=== PATIENT | female | born 1985 | race Caucasian/White ===

== ENCOUNTER 2023-05-25 11:23 | Outpatient (OUT) | payer OTHER, SELFPAY ==
--- NOTE | 2023-05-25 11:32 | US_ITS ---
[address] [address] Patient Name: OTONIEL RIVAS MRN: [id number] date: 1985 Sex: F Assigned Patient Location: US Current Patient Location: US Accession/Order Number: [id number] Exam Date: 05/25/2023 11:50 Report Date: 05/25/2023 13:02 At the request of: NEIL ESPINOZA Procedure: US pelvis w/ transvaginal EXAMINATION: US pelvis w/ transvaginal HISTORY: Menorrhagia With Regular Cycle N92.0 COMPARISON: Ultrasound pelvis 11/25/2016 TECHNIQUE: Transabdominal and/or transvaginal sonographic examination was performed as indicated by examination type. FINDINGS: UTERUS: Slightly heterogeneous within posterior wall; nonspecific. Uterus size: 8.8 x 3.8 x 5.0 cm ENDOMETRIUM: Normal thickness and echogenicity. Trace amount of fluid within endometrial cavity. Endometrial thickness: 11 mm RIGHT OVARY: Contains a 2.1 cm heterogeneous slightly hypoechoic area; mass versus cyst. Duplex Doppler demonstrates normal waveform and flow; resistive index 0.5. Ovary size: 3.8 x 2.3 x 3.2 cm LEFT OVARY: Normal size and appearance. Duplex Doppler demonstrates normal waveform and flow; resistive index 0.5. Ovary size: 2.5 x 1.4 x 1.9 cm CUL-DE-SAC: Unremarkable. No significant free fluid. BLADDER: Unremarkable. OTHER: None. US/US pelvis w/ transvaginal IMPRESSION: 1. Right ovary contains a 2.1 cm complex cyst versus hypoechoic mass. This most likely represents a hemorrhagic cyst. Follow-up ultrasound evaluation 6 weeks is recommended to document regression. 2. Otherwise no suspicious abnormality of the uterus or endometrium to account for patient's symptoms. Electronically authenticated by: TREVON MCKEON Date: 05/25/2023 13:02
[2023-05-25 12:49] LABS: Basophils Absolute Auto 0.2 10^3/uL (0.0-0.1); Basophils Percent Auto 1.6 % (0.2-2.0); Eosinophils Absolute Auto 0.2 10^3/uL (0.0-0.7); Eosinophils Percent Auto 1.8 % (0.9-7.0); Hematocrit 40.8 % (36.0-48.0); Hemoglobin 13.4 g/dL (12.0-16.0); Immature Granulocytes Abs Auto 0.04 10^3/uL (0.00-0.03); Immature Granulocytes Pct Auto 0.4 % (0.0-0.5); Lymphocytes Absolute Auto 2.4 10^3/uL (1.2-3.8); Lymphocytes Percent Auto 24.8 % (20.5-60.0); Mean Corpuscular HGB Conc 32.8 g/dL (29.9-35.2); Mean Corpuscular Hemoglobin 28.8 pg (26.7-34.0); Mean Corpuscular Volume 87.6 fL (81.0-99.0); Mean Platelet Volume 10.5 fL (9.5-13.5); Monocytes Absolute Auto 0.6 10^3/uL (0.3-0.8); Monocytes Percent Auto 6.5 % (1.7-12.0); Neutrophils Absolute Auto 6.2 10^3/uL (1.4-6.5); Neutrophils Percent Auto 64.9 % (43.0-75.0); Platelet Count 320 10^3/uL (150-450); Red Blood Count 4.66 10^6/uL (4.20-5.40); Red Cell Distribution Width 11.9 % (11.0-15.0); White Blood Count 9.5 10^3/uL (4.0-11.0)
[2023-05-25 12:57] LABS: INR 0.96; Partial Thromboplastin Time 26.5 sec (22.3-36.2); Prothrombin Time 10.2 sec (9.0-11.6)
[2023-05-25 13:56] LABS: Free T4 0.85 ng/dL (0.76-1.46)
[2023-05-25 13:59] LABS: HCG Quantitative <1 mIU/mL; Thyroid Stimulating Hormone 0.845 uIU/mL (0.358-3.740)
[2023-05-25 14:01] LABS: Estimated Average Glucose 105 mg/dL; Glycohemoglobin A1C 5.3 % (4.5-6.2)
== END 2023-05-25 11:24 | disposition home or self-care (01) ==
LOC: US 11:28
PROVIDERS: PCP Family Medicine; Visit Provider Obstetrics & Gynecology
DX: N92.0 Excessive and frequent menstruation with regular cycle (principal); N83.201 Unspecified ovarian cyst, right side
CPT/HCPCS: 36415; 76830; 76856; 83036; 84439; 84443; 84702; 85025; 85610; 85730

== ENCOUNTER 2023-06-12 09:13 | Outpatient (OUT) | payer OTHER, SELFPAY ==
[2023-06-12 10:35] LABS: Lactate Dehydrogenase 160 U/L (81-234)
[2023-06-13 04:07] LABS: AFP, Serum, Tumor Marker <1.8 ng/mL (0.0-6.4); CEA 1.6 ng/mL (0.0-4.7); HCG Tumor Marker <1 mIU/mL (.)
== END 2023-06-12 09:14 | disposition home or self-care (01) ==
LOC: LAB 09:14
PROVIDERS: PCP Family Medicine; Visit Provider Obstetrics & Gynecology
DX: N83.299 Other ovarian cyst, unspecified side (principal)
CPT/HCPCS: 36415; 82105; 82378; 83615; 84702; 86304

== ENCOUNTER 2023-07-24 20:44 | Outpatient (REF) | payer OTHER, SELFPAY ==
--- OUTSIDE RECORDS SUMMARY | 2023-07-24 20:54 | XMS_ITS | CCD ---
Author Organization [facility] Care Team Providers Care Director Of Student Financial Services Name Role Phone UNKNOWN, PROVIDER Unavailable Unavailable UNKNOWN, PROVIDER Unavailable Unavailable SELF, REFERRED Unavailable Unavailable PERLA, KILO Unavailable Unavailable Perla NELSON, Kilo Rankin Primary Care Provider MILO POTTER Attending Unavailable PERLA, KILO RANKIN Primary Care UnavailBEREKET Altamirano Consulting Unavailable NADERER, DR KILO Diane Primary Care Unavailable ALEXIS ., DR TREJO Admitting Unavailable ALEXIS ., DR TREJO Attending Unavailable EHSAN ARREDONDO Consulting Unavailable ALEXIS ., DR TREJO Admitting Unavailable NADERER, DR KILO Diane Primary Care Unavailable ALEXIS ., DR TREJO Consulting Unavailable ALEXIS ., DR TREJO Attending Unavailable ANASTASIA ANAYA Consulting Unavailable ABBY II, PATTI Consulting Unavailable ALEXIS ., DR TREJO Attending Unavailable NADERER, DR KILO Diane Primary Care Unavailable ALEXIS ., DR TREJO Admitting Unavailable ALEXIS ., DR TREJO Consulting Unavailable MOJOSSY, BRYON E Attending Unavailable Unavailable Primary Care Provider UnavailKilo Kim MD Primary Care Provider NEIL BALL Attending Unavailable Allergies Allergy Classification Reported Allergen(s) Allergy Type Date of Onset Reaction(s) Facility Corticosteroids (1 source) Desonide Drug Allergy 4 [facility] (1 source) Desonide Drug Allergy 4 [facility] (1 source) ALLERGIES NOT ON FILE; Translations: [ALLERGIES NOT ON FILE] Propensity to adverse reactions (disorder) [facility] 3 Repository Medications Current Medications Medication Drug Class(es) Dates Sig (Normalized) Sig (Original) valACYclovir 500 mg oral tablet (1 source) Herpesvirus Nucleoside Analog DNA Polymerase Inhibitor, Herpes Simplex Virus Nucleoside Analog DNA Polymerase Inhibitor, Herpes Zoster Virus Nucleoside Analog DNA Polymerase Inhibitor valACYclovir (Valtrex) 500 MG tablet valacyclovir 500 mg tablet 0 Active varenicline 0.5 mg oral tablet (1 source) Partial Cholinergic Nicotinic Agonist varenicline (Chantix ) 0.5 MG tablet Chantix 0 Active Problems Active Problems Problem Classification Problem Date Documented Da te Episodic/Chronic Abdominal pain (1 source) Pelvic and perineal pain; Translations: [PELVIC AND PERINEAL PAIN] Onset: 08-08-2022 Episodic Contraceptive and procreative management (1 source) Encounter for sterilization; Translations: [ENCOUNTER FOR STERILIZATION] Onset: 08-08-2022 Episodic E Codes: Fall (1 source) Accidental fall ; Translations: [Unspecified fall, initial encounter] Episodic Inflammatory diseases of female pelvic organs (1 source) Chronic salpingitis; Translations: [CHRONIC SALPINGITIS] Onset: 08-08-2022 Chronic Menstrual disorders (5 sources) Excessive and frequent menstruation with regular cycle; Translations: [EXCESS FREQ MENSTRUATION W/REG CYCL] Onset: 07-22-2022 Chronic Other female genital disorders (1 source) Abnormal uterine and vaginal bleeding, unspecified; Translations: [ABNORMAL UTERINE VAGINAL BLEED UNS] Onset: 08-08-2022 Chronic Residual codes; unclassified (1 source) Acquired absence of other specified parts of digestive tract; Translations: [ACQ ABSENCE OTH PART DIGESTV TRACT] Onset: 08-08-2022 Episodic Spondylosis; intervertebral disc disorders; other back problems (4 sources) Other cervical disc displacement, unspecified cervical region; Translations: [OTHER CERVICAL DISC DISPLACEMENT, UNSP CERVICAL REGION] Onset: 03-02-2016 Chronic Sprains and strains (2 sources) Sprain of left ankle; Translations: [Sprain of unspecified ligament of left ankle, initial encounter] Episodic Substance-related disorders (2 sources) Nicotine dependence, cigarettes, uncomplicated; Translations: [Nicotine dependence, other tobacco product, uncomplicated] Onset: 07-22-2022 Chronic Unclassified (2 sources) Unknown / UNK(Unknown) Onset: 03-02-2016 Past or Other Problems Problem Classification Problem Date Documented Date Episodic/Chronic Immunizations and screening for infectious disease (1 source) Encounter for screening for human papillomavirus (HPV); Translations: [ENC SCREENING HUMAN PAPILLOMAVIRUS] Onset: 05-08-2022 Episodic Other aftercare (1 source) Encounter for follow-up examination after completed treatment for conditions other than malignant neoplasm; Translations: [ENCNTR FOR F/U EXAM AFT TRTMT FOR COND OTH THAN MALIG NEOPLM] Onset: 03-02-2016 Episodic Other connective tissue disease (1 source) Arthrodesis status; Translations: [ARTHRODESIS STATUS] Onset: 03-02-2016 Episodic Other screening for suspected conditions (not mental disorders or infectious disease) (4 sources) Encounter for screening for malignant neoplasm of cervix; Translations: [ENC SCREENING MALIG NEOPLASM CERV] Onset: 05-04-2022 Episodic Results Test Name Value Interpretation Reference Range Facility CBC AUTO DIFFon 07-28-2022 BASO # 0.2 103/ul Critically high 0.0-0.1 [facility] Comment on above: Performed By: #### C BC #### [facility] [address] [place] [address] Dr. Ngozi Christie Basophils/100 WBC (Bld) 1.8 % Normal 0.2-2.0 [facility] Comment on above: Performed By: #### C BC #### [facility] [address] [address] [address] Ngozi Christie EO # 0.2 103/ul Normal 0.0-0.7 [facility] Comment on above: Performed By: #### C BC #### [facility] [address] [place] [address] Dr. Ngozi Christie Eosinophils/100 WBC (Bld) 2.3 % Normal 0.9-7.0 [facility] Comment on above: Performed By: #### C BC #### [facility] [address] [place] [address] Dr. Ngozi Christie Erythrocyte distribution width (RBC) [Ratio] 11.7 % Normal 11.0-15.0 [facility] Comment on above: Performed By: #### C BC #### [facility] [address] [address] [address] Ngozi Christie Hematocrit (Bld) [Volume fraction] 42.2 % Normal 36.0-48.0 [facility] Comment on above: Performed By: #### C BC #### [facility] [address] [place] [address] Dr. Ngozi Christie Hemoglobin (Bld) [Mass/Vol] 14.0 g/dL Normal 12.0-16.0 [facility] Comment on above: Performed By: #### C BC #### [facility] [address] [place] [address] Dr. Ngozi Christie IG # 0.03 10e3/ul Normal 0.00-0.03 [facility] Comment on above: Performed By: #### C BC #### [facility] [address] [place] [address] Dr. Ngozi Christie IG % 0.4 % Normal 0.0-0.5 [facility] Comment on above: Performed By: #### C BC #### [facility] [address] [place] [address] Dr. Ngozi Christie LYMPH # 2.3 103/ul Normal 1.2-3.8 [facility] Comment on above: Performed By: #### C BC #### [facility] [address] [place] [address] Dr. Ngozi Christie Lymphocytes/100 WBC (Bld) 27.6 % Normal 20.5-60.0 [facility] Comment on above: Performed By: #### C BC #### [facility] [address] [place] [address] Dr. Ngozi Christie MANUAL DIFF REQ NO Normal [facility] Comment on above: Performed By: #### C BC #### [facility] [address] [place] [address] Dr. Ngozi Christie MCH (RBC) [Entitic mass] 28.9 pg Normal 26.7-34.0 [facility] Comment on above: Performed By: #### C BC #### [facility] [address] [place] [address] Dr. Ngozi Christie MCHC (RBC) [Mass/Vol] 33.2 g/dL Normal 29.9-35.2 [facility] Comment on above: Performed By: #### C BC #### [facility] [address] [place] [address] Dr. Ngozi Christie MCV (RBC) [Entitic vol] 87.0 fL Normal 81.0-99.0 [facility] Comment on above: Performed By: #### C BC #### [facility] [address] [place] [address] Dr. Ngozi Christie MONO # 0.5 103/ul Normal 0.3-0.8 [facility] Comment on above: Performed By: #### C BC #### [facility] [address] [place] [address] Dr. Ngozi Christie Monocytes/100 WBC (Bld) 5.7 % Normal 1.7-12.0 [facility] Comment on above: Performed By: #### C BC #### [facility] [address] [place] [address] Dr. Ngozi Christie NEUT # 5.2 103/ul Normal 1.4-6.5 [facility] Comment on above: Performed By: #### C BC #### [facility] [address] [place] [address] Dr. Ngozi Christie Neutrophils/100 WBC (Bld) 62.2 % Normal 43.0-75.0 [facility] Comment on above: Performed By: #### C BC #### [facility] [address] [place] [address] Dr. Ngozi Christie Platelet mean volume (Bld) [Entitic vol] 10.0 fL Normal 9.5-13.5 [facility] Comment on above: Performed By: #### C BC #### [facility] [address] [place] [address] Dr. Ngozi Christie PLT 332 103/ul Normal 150-450 [facility] Comment on above: Performed By: #### C BC #### [facility] [address] [place] [address] Dr. Ngozi Christie RBC 4.85 106/ul Normal 4.20-5.40 [facility] Comment on above: Performed By: #### C BC #### [facility] [address] [place] [address] Dr. Ngozi Christie WBC 8.4 103/ul Normal 4.0-11.0 [facility] Comment on above: Performed By: #### C BC #### [facility] [address] [place] [address] Dr. Ngozi Christie PREG QUANT HCGon 07-28-2022 HCG QUANT <1 Normal [facility] Comment on above: Performed By: #### P REGQNT #### [facility] [address] [place] [address] Dr. Ngozi Christie HCG RANGE SEE BELOW [facility] Comment on above: Result Comment: 5-50 0.2-1 WEEK 50-500 1-2 WEEKS 100-5,000 2-3 WEEKS 500-10,000 3-4 WEEKS 1,000-50,000 4-5 WEEKS 10,000-100,000 5-6 WEEKS 15,000-200,000 6-8 WEEKS 10,000-100,000 2-3 MONTHS Performed By: #### P REGQNT #### [facility] [address] [place] [address] Dr. Ngozi Christie PAP ACOG PANEL 2: 30 to 65on 05-11-2022 . . Normal [facility] Comment on above: Result Comment: Perf ormed at: WB Performed By: #### [id number] #### [facility] [address] [place] [address] Dr. Ngozi Christie Age Gdln ACOG Testing 30-65 [facility] Comment on above: Performed By: #### [id number] #### [facility] [address] [place] [address] Dr. Ngozi Christie DIAGNOSIS: Comment Normal [facility] Comment on above: Result Comment: NEGA TIVE FOR INTRAEPITHELIAL LESION OR MALIGNANCY. Performed at: WB Performed By: #### [id number] #### [facility] [address] [place] [address] Dr. Ngozi Christie HPV Aptima Negative Normal Negative [facility] Comment on above: Result Comment: This nucleic acid amplification test detects fourteen high-risk HPV types (16,18,31,33,35,39,45,51,52,56,58,59,66,68) without differentiation. Performed at: =G Performed By: #### [id number] #### [facility] [address] [place] [address] Dr. Ngozi Christie HPV Genotype Reflex Comment Normal [facility] Comment on above: Result Comment: Crit erclaire not met, HPV Genotype not performed. Performed at: WB Performed By: #### [id number] #### [facility] [address] [place] [address] Dr. Ngozi Christie Methodology: Comment Normal [facility] Comment on above: Result Comment: This liquid based ThinPrep(R) pap test was screened with the use of an image guided system. Performed at: WB Performed By: #### [id number] #### [facility] [address] [place] [address] Dr. Ngozi Christie Note: Comment Normal [facility] Comment on above: Result Comment: The Pap smear is a screening test designed to aid in the detection of premalignant and malignant conditions of the uterine cervix. It is not a diagnostic procedure and should not be used as the sole means of detecting cervical cancer. Both false-positive and false-negative reports do occur. . Performed at: WB Performed By: #### [id number] #### [facility] [address] [place] [address] Dr. Ngozi Christie Performed by: Comment Normal [facility] Comment on above: Result Comment: Manuel Najera [employer]quis[employer] Analyst (ASCP) Performed at: WB Performed By: #### [id number] #### [facility] [address] [place] [address] Dr. Ngozi Christie Specimen adequacy: Comment Normal [facility] Comment on above: Result Comment: Sati sfactory for evaluation. Endocervical and/or squamous metaplastic cells (endocervical component) are present. Performed at: WB Performed By: #### [id number] #### [facility] [address] [place] [address] Dr. Ngozi Christie No Panel InformationOrdered By: Milo Potter on 07-22-2020 1. Soft tissue swelling at the lateral aspect of the left ankle. No fracture or disruption of the ankle mortise. 2. Small posterior calcaneal spur. 3. No fracture or joint abnormality is identified in the left foot. [employer] Phone: LEFT ANKLE 3 VIEWS AND LEFT FOOT 3 VIEWS 07/22/2020 COMPARISON: None. HISTORY: Reason for exam:->fall into hole, marked pain greatest over lateral malleolar area; twisting injury left ankle. TECHNIQUE: Frontal, oblique, and lateral views of the left ankle as well as frontal, oblique, and lateral views of left foot were obtained. FINDINGS: There is soft tissue swelling at the lateral aspect of the left ankle. No fracture, osteochondral defect, or dislocation is identified. Ankle mortise is intact. There is a small enthesophyte at the posterior aspect of the calcaneus. Joint spaces in the left foot are preserved. No other significant degenerative spurring is identified. [employer] Phone: Fausto, pn Incoming Radiant Results From [employer] - 07/22/2020 3:39 PM EDT LEFT ANKLE 3 VIEWS AND LEFT FOOT 3 VIEWS 07/22/2020 COMPARISON: None. HISTORY: Reason for exam:->fall into hole, marked pain greatest over lateral malleolar area; twisting injury left ankle. TECHNIQUE: Frontal, oblique, and lateral views of the left ankle as well as frontal, oblique, and lateral views of left foot were obtained. FINDINGS: There is soft tissue swelling at the lateral aspect of the left ankle. No fracture, osteochondral defect, or dislocation is identified. Ankle mortise is intact. There is a small enthesophyte at the posterior aspect of the calcaneus. Joint spaces in the left foot are preserved. No other significant degenerative spurring is identified. IMPRESSION: 1. Soft tissue swelling at the lateral aspect of the left ankle. No fracture or disruption of the ankle mortise. 2. Small posterior calcaneal spur. 3. No fracture or joint abnormality is identified in the left foot. [employer] Phone: XR ANKLE LEFT (MIN 3 VIEWS)o n 07-22-2020 XR ANKLE LEFT (MIN 3 VIEWS) LEFT ANKLE 3 VIEWS AND LEFT FOOT 3 VIEWS 07/22/2020 COMPARISON: None. HISTORY: Reason for exam:->fall into hole, marked pain greatest over lateral malleolar area; twisting injury left ankle. TECHNIQUE: Frontal, oblique, and lateral views of the left ankle as well as frontal, oblique, and lateral views of left foot were obtained. FINDINGS: There is soft tissue swelling at the lateral aspect of the left ankle. No fracture, osteochondral defect, or dislocation is identified. Ankle mortise is intact. There is a small enthesophyte at the posterior aspect of the calcaneus. Joint spaces in the left foot are preserved. No other significant degenerative spurring is identified. IMPRESSION: 1. Soft tissue swelling at the lateral aspect of the left ankle. No fracture or disruption of the ankle mortise. 2. Small posterior calcaneal spur. 3. No fracture or joint abnormality is identified in the left foot. Interpreted by: Feliciano Jones MD Signed by: Feliciano Jones MD 07/22/20 Final result Normal [facility] XR FOOT LEFT (MIN 3 VIEWS)on 07-22-2020 XR FOOT LEFT (MIN 3 VIEWS) LEFT ANKLE 3 VIEWS AND LEFT FOOT 3 VIEWS 07/22/2020 COMPARISON: None. HISTORY: Reason for exam:->fall into hole, marked pain greatest over lateral malleolar area; twisting injury left ankle. TECHNIQUE: Frontal, oblique, and lateral views of the left ankle as well as frontal, oblique, and lateral views of left foot were obtained. FINDINGS: There is soft tissue swelling at the lateral aspect of the left ankle. No fracture, osteochondral defect, or dislocation is identified. Ankle mortise is intact. There is a small enthesophyte at the posterior aspect of the calcaneus. Joint spaces in the left foot are preserved. No other significant degenerative spurring is identified. IMPRESSION: 1. Soft tissue swelling at the lateral aspect of the left ankle. No fracture or disruption of the ankle mortise. 2. Small posterior calcaneal spur. 3. No fracture or joint abnormality is identified in the left foot. Interpreted by: Feliciano Jones MD Signed by: Feliciano Jones MD 07/22/20 Final result Normal [facility] Vital Signs Date Time Vital Sign Value Performing Clinician Bentoni veray 07-22-2020 14:59-0400 Body height 177.8 cm Milo Potter MD Work Phone: [employer] Work Phone: 07-22-2020 14:59-0400 Body mass index (BMI) [Ratio] 25.83 kg/m2 Milo Potter MD Work Phone: [employer] Work Phone: 07-22-2020 14:59-0400 Body temperature 99.1 [degF] Milo Potter MD Work Phone: [employer] Work Phone: 07-22-2020 14:59-0400 Body weight 81.65 kg Milo Potter MD Work Phone: [employer] Work Phone: 07-22-2020 14:59-0400 Diastolic blood pressure 55 mm[Hg] Milo Potter MD Work Phone: [employer] Work Phone: 07-22-2020 14:59-0400 Heart rate 113 /min Milo Potter MD Work Phone: [employer] Work Phone: 07-22-2020 14:59-0400 Respiratory rate 18 /min Milo Potter MD Work Phone: [employer] Work Phone: 07-22-2020 14:59-0400 SaO2% (BldA) [Mass fraction] 100 % Milo Potter MD Work Phone: [employer] Work Phone: 07-22-2020 14:59-0400 Systolic blood pressure 146 mm[Hg] Milo Potter MD Work Phone: [employer] Work Phone: Encounters Encounter Date Encounter Type Care Provider Facility Start: 05-09-2023 End: 05-09-2023 ambulatory NIEL BALL Not Available Start: 04-18-2023 Chart abstracting Neil Ball DO Work Phone: [facility] Start: 01-01-2023 End: 01-01-2023 ambulatory BRYON DRISCOLL [facility] Ambulatory Start: 01-01-2023 End: 01-01-2023 Postop follow up visit related to original px Bryon Driscoll MD Work Phone: [facility] Comment on above: Sprain of left ankle , unspecified ligament, initial encounter (Primary Dx) Start: 07-28-2022 End: 07-28-[address] NEIL BALL . Facility:[facility] Start: 07-22-2022 Encounter for preprocedural cardiovascular examination DR NEIL BALL . [facility] Start: 07-19-2022 End: 07-20-2022 ambulatory BEREKET REESER Facility:[facility] Start: 07-19-2022 End: 07-20-2022 Encounter for preprocedural cardiovascular examination BEREKET NAVARRETE Facility:[facility] Start: 05-04-2022 End: 05-04-[address] NEIL BALL . Facility:[facility] Start: 07-22-2020 End: 07-22-2020 Emergency department patient visit MLIO POTTER [facility] Start: 07-22-2020 End: 07-22-2020 Emergency department patient visit Milo Potter MD Work Phone: [facility] ED Comment on above: Sprain of left ankle , unspecified ligament, initial encounter (Primary Dx); Accidental fall, initial encounter Start: 03-02-2016 End: 03-03-2016 Ambulatory PROVIDER UNKNOWN Facility:[facility] Procedures Date Procedure Procedure Detail Performing Clinician Start: 05-04-2022 Microscopic observat ion [Identifier] in Cervix by Cyto stain Neil Ball DO Work Phone: Start: 07-22-2020 End: 07-22-2020 Radex ankle complete minimum 3 views Milo Potter MD Work Phone: Plan of Treatment Date Care Activity Detail Author Start: 01-31-2036 Zoster Vaccines (1 of 2) Zoste r Vaccines (1 of 2) [facility] Start: 05-04-2027 Screening for malign ant neoplasm of cervix [facility] Start: 05-09-2023 End: 05-09-2023 Patient encounter procedure 05/09/2023 1:50 PM EST Office Visit [facility] [address] [place] [address] Neil Ball, DO [address] [place] [address] [facility] Start: 11-10-2022 Influenza vaccination Influenza Vacc ine (#1) [facility] Start: 11-10-2020 Influenza vaccination Flu vacc ine (Season Ended) [employer] Phone: Start: 01-31-2008 DTaP/Tdap/Td Vaccine s (1 - Tdap) DTaP/Tdap/Td Vaccines (1 - Tdap) [facility] Start: 2007 Screening for malign ant neoplasm of cervix [facility] Start: 2005 DTaP/Tdap/Td vaccine (1 - Tdap) DTaP/Tdap/Td vaccine (1 - Tdap) [employer] Phone: Start: 01-31-2004 Diabetes mellitus screening Diabetes Screening [facility] Start: 01-31-2004 Hepatitis C screening Hepatitis C Sc reening [facility] Start: 2001 HIV screening HIV screen [facility] Work Phone: Start: 1998 COVID-19 Vaccine (1) COVID-19 Vaccin e (1) [employer] Phone: Start: 1987 MMR Vaccines (1 of 1 - Standard series) MMR Vaccines (1 of 1 - Standard series) [facility] Start: 1987 Varicella vaccination Varicell a Vaccines (1 of 2 - 2-dose childhood series) [facility] Start: 1987 Varicella vaccine (1 of 2 - 2-dose childhood series) Varicella vaccine (1 of 2 - 2-dose childhood series) [employer] Phone: Start: 1986 COVID-19 Vaccine (#1) COVID-19 Vacci ne (#1) [facility] Start: 1986 Hepatitis B Vaccines (1 of 3 - 3-dose series) Hepatitis B Vaccines (1 of 3 - 3-dose series) [facility] Start: 1986 Hepatitis C screening Hepatitis C sc raza [facility] Work Phone: Start: 1986 HIV screening HIV Screening [facility] Start: 1986 Lipid panel Lipid Panel [facility] Start: 1986 Yearly Adult Physical Yearly Adult P hysical [facility] Immunizations Immunization Date Immunization Notes Care Provider Fa cility 02-16-2016 influenza virus vaccine, unspecified formulation Bryon Driscoll MD Work Phone: [facility] Work Phone: Payers Date Payer Category Payer Private Health Insurance CYDNEY SHELTON [id number] 2021-Present [address] [place] [address] [id number] 2021 Private Health Insurance [id number] 2020 Unknown [id number] 2020 Unknown [employer] [id number] 2020-Present [address] [place] [address] [id number] 1986 Unknown [id number] 1986 Unknown [id number] 1986 Unknown [id number] 1986 Unknown [id number] 1986 Unknown [id number] 1959 Private Health Insurance [id number] Unknown [id number] Social History Date Type Detail Facility Start: 07-22-2020 Tobacco smoking stat [facility] Current every day smoker [employer] Phone: History of tobacco use Cigarette Smoker [employer] Start: 07-22-2020 Cigarettes smoked current (pack per day) - Reported [employer] Phone: Start: 07-22-2020 Tobacco use and exposure Never used [employer] Start: 1986 Sex Assigned At Not on file [email or web address] Phone: Start: 12-22-2022 End: 01-01-2023 Exposure to SARS-CoV-2 (event) Not sure [employer] Tobacco smoking stat [facility] Tobacco smoking consumption unknown [facility] Work Phone: Gender identity Not on file [facility] Work Phone: Start: 04-18-2023 [facility] [facility] [place] [facility] Never smoked tobacco [facility] Start: 04-18-2023 Alcohol intake Lifetime non-d eris (finding) [facility] History of Present illness Narrative 01-01-2023 Bryon Driscoll MD - 01/01/2023 2:40 PM EDT Note Date & Type Note Facility 01-01-2023 History of Present illness Narrative Report documented in this encounter [facility] Work Phone: Clinical Note 07-28-2022 Note Date & Type Note Facility 07-28-2022 Note OPERATIVE NOTE OPERATION DATE: 07/28/2022 PROCEDURE: Hysteroscopy with robotic assisted laparoscopic salpingectomy. PREOPERATIVE DIAGNOSIS: Menorrhagia, dysmenorrhea, pelvis pain. POSTOPERATIVE DIAGNOSIS: Menorrhagia, dysmenorrhea, pelvis pain. ANESTHESIA: General. SURGEON: Neil Ball D.O. PETROLEUM REFINERY OPERATOR: AMERICA Holcomb URINE OUTPUT: Yellow and clear. BLOOD LOSS: 5 mL. FINDINGS: Right ovarian cyst, otherwise normal appearing right ovary. Normal appearing uterus and normal appearing left ovary. Slightly swollen tube on the patient's left side. Normal appearing right tube on the right side. Please note that with hysteroscopy, uterine cavity was small SPECIMEN: Bilateral tubes. PROCEDURE: The patient was taken back to the Operating Room where she was prepped and draped in normal sterile fashion after being placed under general anesthesia without difficulty. She was also placed in the dorsal lithotomy position. A weighted speculum was placed in the patient's vagina. The anterior lip of the cervix was identified and grasped with a single tooth tenaculum. The patient's uterus was then sounded roughly to [ ] cm. The patient was then gently dilated using Hegar dilators. The hysteroscope was passed through the patient's cervix into the uterus. Both ostia were identified. Normal appearing endometrium. No gross evidence of polyps, fibroids or malignancy. The hysteroscope was then removed from the patient's uterus. At that point, gentle curettage was performed until a gritty texture was noted. The endometrial curettings were sent out to pathology. The single tooth tenaculum was then removed from the patient's anterior lip of the cervix where excellent hemostasis was noted. All instruments were removed from the patient's vagina. The patient tolerated the procedure well. Sponge, lap and needle counts were correct times two. The patient was taken to the Recovery Room in stable condition. The patient was taken back to the OR where she was prepped and draped in the normal sterile fashion after being placed in the dorsal lithotomy position, after being placed under general anesthesia without difficulty. A wet sponge stick was placed into the patient's vagina. Attention was then turned to the patient's abdomen, where a scalpel was used to make a small infraumbilical incision. The S retractors were then used to dissect the underlying layers until the fascia could be seen. The fascia was then grasped with Baldemar clamps and tented up. A knife was then used to make a small incision to the fascia. The muscle was identified, at that time two sutures of #0 Vicryl on a GI needle was then used and placed through the fascia. The peritoneum was then identified and entered bluntly. The 10-4 Josse was then placed into the patient's abdomen. This was confirmed with direct visualization of the bowel, using the laparoscope. The patient's abdomen was then insufflated using approximately 4 liters of CO2 gas. Survey of the patient's abdomen demonstrated normal appearing ovaries, uterus and tubes. A second and third lateral port, which was 7-8 in size and 5 mm in size, was then placed laterally after incision was made in the skin under direct visualization. The patient's tube on the patient's right side was identified. The tube was then tented up using a grasper. The LigaSure was used to transect and coagulate the mesosalpinx from the fimbriated end to the insertion at the uterus; the tube was amputated and removed in its entirety. Excellent hemostasis was noted. This was performed on the contralateral side as well. The lateral ports were then removed under direct visualization with excellent hemostasis. The abdomen was desufflated. All instruments were removed from the patient's abdomen. The fascia was closed using the #0 Vicryl on GI needle. The skin was closed using 4-0 Vicryl subcuticularly. All instruments were removed from the patient's vagina as well. The patient was taken out of the dorsal lithotomy position and placed in the supine position and taken to recovery in stable condition. Sponge, lap and needle counts were correct x2. [facility] Clinical Note 07-19-2022 Note Date & Type Note Facility 07-19-2022 Note PROCEDURE: XR CHEST 2 V DATE: 07/19/2022 8:20 AM CDT COMPARISONS: Rib radiographs which include the chest from 06/30/2020 CLINICAL INDICATION: 37 years Female Electronic cigarette user Requisition states: Presurgical evaluation. FINDINGS: The cardiomediastinal silhouette and pulmonary vasculature are within normal limits. The lungs are clear. There is no evidence of pleural effusion or pneumothorax. IMPRESSION: Chest radiograph is within normal limits. Electronically authenticated by: EHSAN ARREDONDO Date: 2022-07-19 09:39 [facility] Evaluation note Note Date & Type Note Facility Evaluation note Diagnosis Sprain of left ankle, unspecified ligament, initial encounter- Primary Accidental fall, initial encounter documented in this encounter [facility] Phone: Evaluation note Note Date & Type Note Facility Evaluation note Diagnosis Sprain of left ankle, unspecified ligament, initial encounter- Primary documented in this encounter [facility] Work Phone: Hospital Discharge instructions Attachments Note Date & Type Note Facility Hospital Discharge instructions The following attachments cannot be sent through Care Everywhere.Ankle Sprain (Austrian)RICE: General Info (Austrian)documented in this encounter [employer] Work Phone: Summary Purpose Family History No Family History Records FoundNo Family History Records FoundNo Family History Records FoundNo Family History Records FoundNo Family History Records Found Advance Directives No Advanced Directives Records FoundNo Advanced Directives Records FoundNo Advanced Directives Records FoundNo Advanced Directives Records FoundNo Advanced Directives Records Found Additional Source Comments INFORMATION SOURCE (unrecogn ized section and content) DATE CREATED AUTHOR 09/07/2017 [facility] DATE CREATED AUTHOR AUTHOR'S ORGANIZ ATION 07/24/2020 [facility] DATE CREATED AUTHOR AUTHOR'S ORGANIZ ATION 08/18/2022 [facility] DATE CREATED AUTHOR AUTHOR'S ORGANIZ ATION 01/04/2023 [facility] DATE CREATED AUTHOR AUTHOR'S ORGANIZ ATION 05/12/2023 [facility] EPIC Reason for Visit (unrecogniz ed section and content) Reason Comments Ankle Pain left ankle pain, 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 This clinical summary was aggregated from multiple sources. Caution should be exercised in using it in the provision of clinical care. This summary normalizes information from multiple sources, and as a consequence, information in this document may materially change the coding, format and clinical context of patient data. In addition, data may be omitted in some cases. CLINICAL DECISIONS SHOULD BE BASED ON THE PRIMARY CLINICAL RECORDS. [facility]. provides no warranty or guarantee of the accuracy or completeness of information in this document.
[2023-07-30 11:08] LABS: Age Gdln ACOG Testing Note (.); HPV Aptima Negative (Negative); IGP, Aptima HPV, rfx 16/18,45 Note (.)
== END 2023-07-24 20:45 | disposition home or self-care (01) ==
LOC: LAB 20:44
PROVIDERS: PCP Family Medicine; Visit Provider Obstetrics & Gynecology
DX: Z01.419 Encounter for gynecological examination (general) (routine) without abnormal findings (principal)
CPT/HCPCS: 87624; G0145

== ENCOUNTER 2023-09-04 09:55 | Outpatient (REF) | payer OTHER, SELFPAY ==
--- OUTSIDE RECORDS SUMMARY | 2023-09-07 08:25 | XMS_ITS ---
Patient Summarization (C-CDA 2.1 CCD) Created on: September 07, 2023 JENNIFER RIVAS : 1985 Sex: Female Author Organization Sample organization Care Team Providers Care Subwarehouse Supervisor Name Role Phone UNKNOWN, PROVIDER Unavailable Unavailable UNKNOWN, PROVIDER Unavailable Unavailable SELF, REFERRED Unavailable Unavailable NADEDMARR, KILO Unavailable Unavailable Amita NELSON, Kilo Rankin Primary Care Provider MILO POTTER Attending Unavailable NADERER, KILO RANKIN Primary Care UnavailBEREKET Altamirano Consulting Unavailable NADERER, DR KILO Diane Primary Care Unavailable LIZZY ., DR TREJO Admitting Unavailable LIZZY ., DR TREJO Attending Unavailable EHSAN ARREDONDO Consulting Unavailable LIZZY ., DR TREJO Admitting Unavailable NADERER, DR KILO Diane Primary Care Unavailable LIZZY ., DR TREJO Consulting Unavailable LIZZY ., DR TREJO Attending Unavailable JACLYNWENDY OcampoANASTASIA Consulting Unavailable ABBY II, PATTI Consulting Unavailable LIZZY ., DR TREJO Attending Unavailable NADERER, DR KILO Diane Primary Care Unavailable LIZZY ., DR TREJO Admitting Unavailable LIZZY ., DR TREJO Consulting Unavailable MOJOSSY, BRYON E Attending Unavailable Unavailable Primary Care Provider UnavailKilo Kim MD Primary Care Provider NEIL BALL Attending Unavailable ENIL BALL Attending Unavailable LIZZY, NEIL Attending Unavailable Neil Ball Attending Provider Neil Ball Attending Unavailable Neil Ball Admitting Unavailable Allergies Allergy Classification Reported Allergen(s) Allergy Type Date of Onset Reaction(s) Facility Corticosteroids (1 source) Desonide Drug Allergy 4 [facility] (1 source) Desonide Drug Allergy 4 [facility]ository (1 source) ALLERGIES NOT ON FILE; Translations: [ALLERGIES NOT ON FILE] Propensity to adverse reactions (disorder) [facility] 3 Repository Encounters Encounter Date Encounter Type Care Provider Facility Start: 09-04-2023 End: 09-04-2023 Departed Referred Neil Ball Work Phone: [facility] Start: 09-04-2023 End: 09-04-2023 ambulatory NEIL LIZZY Not Available Start: 07-24-2023 End: 07-24-2023 ambulatory NEIL LIZZY Not Available Start: 05-09-2023 End: 05-09-2023 ambulatory NEIL LIZZY Not Available Start: 04-18-2023 Chart abstracting Neil Gusmano DO Work Phone: [facility] Start: 01-01-2023 End: 01-01-2023 ambulatory [facility] Start: 01-01-2023 End: 01-01-2023 Postop follow up visit related to original px Bryon Barajas MD Work Phone: [facility] Comment on above: Sprain of left ankle , unspecified ligament, initial encounter (Primary Dx) Start: 07-28-2022 End: 07-28-[address] NEIL BALL . Facility:[facility] Start: 07-22-2022 Encounter for preprocedural cardiovascular examination DR NEIL BALL . [facility] Start: 07-19-2022 End: 07-20-2022 ambulatory BEREKET NAVARRETE Facility:[facility] Start: 07-19-2022 End: 07-20-2022 Encounter for preprocedural cardiovascular examination BEREKET NAVARRETE Facility:[facility] Start: 05-04-2022 End: 05-04-[address] NEIL BALL . Facility:[facility] Start: 07-22-2020 End: 07-22-2020 Emergency department patient visit MILO POTTER [facility] Start: 07-22-2020 End: 07-22-2020 Emergency department patient visit Milo Potter MD Work Phone: [facility] ED Comment on above: Sprain of left ankle , unspecified ligament, initial encounter (Primary Dx); Accidental fall, initial encounter Start: 03-02-2016 End: 03-03-2016 Ambulatory PROVIDER UNKNOWN Facility:[facility] Immunizations Immunization Date Immunization Notes Care Provider Gera mohan 02-16-2016 influenza virus vaccine, unspecified formulation Bryon Barajas MD Work Phone: [facility] Work Phone: Medications Current Medications Medication Drug Class(es) Dates [...] ) 0.5 MG tablet Chantix 0 Active Payers Date Payer Category Payer Self-pay 2021 Private Health Insurance CYDNEY SHELTON [id number] 2021-Present [address] [place] [address] 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 1985 Unknown [id number] [id number] 1986 Unknown [id number] [id number] 1986 Unknown [id number] [id number] 1986 Unknown [id number] [id number] 1986 Unknown [id number] [id number] 1986 Unknown [id number] [id number] 1986 Unknown [id number] [id number] 1959 Private Health Insurance [id number] Unknown [id number] Unknown [id number] [id number] Plan of Treatment Date Care Activity Detail Author Start: 01-31-2036 Zoster Vaccines (1 of 2) Zoste r Vaccines (1 of 2) [facility] Start: 05-04-2027 Screening for malign ant neoplasm of cervix [facility] Start: 05-09-2023 End: 05-09-2023 Patient encounter procedure 05/09/2023 1:50 PM EST Office Visit [facility] [address] [place] [id number] Neil Ball, DO [address] [place] [address] [facility] Start: 11-10-2022 Influenza vaccination Influenza Vacc ine (#1) [facility] Start: 11-10-2020 Influenza vaccination Flu vacc ine (Season Ended) [employer] Phone: Start: 01-31-2008 DTaP/Tdap/Td Vaccine s (1 - Tdap) DTaP/Tdap/Td Vaccines (1 - Tdap) [facility] Start: 2007 Screening for malign ant neoplasm of cervix [facility] Start: 2005 DTaP/Tdap/Td vaccine (1 - Tdap) DTaP/Tdap/Td vaccine (1 - Tdap) [employer] Phone: Start: 01-31-2004 Diabetes mellitus screening Diabetes Screening [facility] Start: 01-31-2004 [facility] Start: 2001 HIV screening HIV screen [facility] Work Phone: Start: 1998 COVID-19 Vaccine (1) COVID-19 Vaccin e (1) [employer] Phone: Start: 1987 MMR Vaccines (1 of 1 - Standard series) MMR Vaccines (1 of 1 - Standard series) [facility] Start: 1987 Varicella vaccination Varicell a Vaccines (1 of 2 - 2-dose childhood series) [facility] Start: 1987 Varicella vaccine (1 of 2 - 2-dose childhood series) Varicella vaccine (1 of 2 - 2-dose childhood series) [employer] Phone: Start: 1986 COVID-19 Vaccine (#1) COVID-19 Vacci ne (#1) [facility] Start: 1986 Hepatitis B Vaccines (1 of 3 - 3-dose series) Hepatitis B Vaccines (1 of 3 - 3-dose series) [facility] Start: 1986 Hepatitis C screening Hepatitis C sc raza [employer] Phone: Start: 1986 HIV screening HIV Screening [facility] Start: 1986 Lipid panel Lipid Panel [facility] Start: 1986 Yearly Adult Physical Yearly Adult P hycal [facility] Problems Active Problems Problem Classification Problem Date [...] SCREENING MALIG NEOPLASM CERV] Onset: 05-04-2022 Episodic Procedures Date Procedure Procedure Detail Performing Clinician Start: 05-04-2022 Microscopic observat ion [Identifier] in Cervix by Cyto stain Neil Ball DO Work Phone: Start: 07-22-2020 End: 07-22-2020 Radex ankle complete minimum 3 views Milo Potter MD Work Phone: Results Test Name Value Interpretation Reference Range Facility [facility] 09-04-2023 L Specimen: [id number] Received: 09/05/23 Status: PHANI Deluna Num: [id number] Spec Type: Surgical Subm Dr: Neil Ball Tissues: A Endometrium - Biopsy (EMB) Procedures: HE/2, Gross/Micro L4 Age/ Patient Sex Location Account Attending Physician Jennifer Rivas 38/F LABELL [id number] Neil Ball SPEC NUM: [id number] RECD: 09/05/23 STATUS: COLLINMarci AMINATALauren NUM: [id number] RAMON: 09/04/[address]: Neil Ball ENTERED: 09/05/[address] [facility] [address]: Arias,Lab SPEC TYPE: Surgical DEPT: NANO GAN ORDERED: HE/2, Gross/Micro L4 ORDERED: HE/2, Gross/Micro L4 Pathological Diagnosis Endometrium, biopsy: Proliferative endometrium. Clinical Information Menorrhagia N92.0. Gross Description Received in formalin labeled with the patient's name, date of and endometrial biopsy is a 2.4 x 0.7 x 0.2 cm aggregate of mata tissue and mucus, entirely submitted in A1. CPT Codes 56508 Specimen: [id number] Received: 09/05/23 Status: PHANI Mikie Num: [id number] Spec Type: Surgical Subm Dr: Neil Ball Tissues: A Endometrium - Biopsy (EMB) Procedures: HE/2, Gross/Micro L4 Patient: Jennifer Rivas [id number] (Continued) Signed (signature on file) Lefty Ramírez MD 09/06/23 1610 Normal [facility] CBC AUTO DIFFon 07-28-2022 BASO # 0.2 103/ul Critically high 0.0-0.1 [facility] Comment on above: Performed By: #### C BC #### [facility] [address] [place] [address] Dr. Ngozi Christie Basophils/100 WBC (Bld) 1.8 % Normal 0.2-2.0 [facility] Comment on above: Performed By: #### C BC #### [facility] [address] [place] [address] Dr. Ngozi Christie EO # 0.2 103/ul Normal 0.0-0.7 [facility] Comment on above: Performed By: #### C BC #### [facility] [address] [place] [address] Dr. Ngozi Christie Eosinophils/100 WBC (Bld) 2.3 % Normal 0.9-7.0 [facility] Comment on above: Performed By: #### C BC #### [facility] [address] [place] [address] Dr. Ngozi Christie Erythrocyte distribution width (RBC) [Ratio] 11.7 % Normal 11.0-15.0 [facility] Comment on above: Performed By: #### C BC #### [facility] [address] [place] [address] Dr. Ngozi Christie Hematocrit (Bld) [Volume fraction] 42.2 % Normal 36.0-48.0 [facility] Comment on above: Performed By: #### C BC #### [facility] [address] [place] [address] Dr. Ngozi Christie Hemoglobin (Bld) [Mass/Vol] 14.0 g/dL Normal 12.0-16.0 [facility] Comment on above: Performed By: #### C BC #### [facility] [address] [place] [address] Dr. Ngozi Christie IG # 0.03 10e3/ul Normal 0.00-0.03 [facility] Comment on above: Performed By: #### C BC #### [facility] [address] [place] [address] Dr. Ngozi Christie IG % 0.4 % Normal 0.0-0.5 [facility] Comment on above: Performed By: #### C BC #### [facility] [address] [place] [address] Dr. Ngozi Christie LYMPH # 2.3 103/ul Normal 1.2-3.8 [facility] Comment on above: Performed By: #### C BC #### [facility] [address] [place] [address] Dr. Ngozi Christie Lymphocytes/100 WBC (Bld) 27.6 % Normal 20.5-60.0 [facility] Comment on above: Performed By: #### C BC #### [facility] [address] [place] [address] Dr. Ngozi Christie MANUAL DIFF REQ NO Normal [facility] Comment on above: Performed By: #### C BC #### [facility] [address] [place] [address] Dr. Ngozi Christie MCH (RBC) [Entitic mass] 28.9 pg Normal 26.7-34.0 [facility] Comment on above: Performed By: #### C BC #### [facility] [address] [place] [address] Dr. Ngozi Christie MCHC (RBC) [Mass/Vol] 33.2 g/dL Normal 29.9-35.2 [facility] Comment on above: Performed By: #### C BC #### [facility] [address] [place] [address] Dr. Ngozi Christie MCV (RBC) [Entitic vol] 87.0 fL Normal 81.0-99.0 [facility] Comment on above: Performed By: #### C BC #### [facility] [address] [place] [address] Dr. Ngozi Christie MONO # 0.5 103/ul Normal 0.3-0.8 [facility] Comment on above: Performed By: #### C BC #### [facility] [address] [place] [address] Dr. Ngozi Christie Monocytes/100 WBC (Bld) 5.7 % Normal 1.7-12.0 [facility] Comment on above: Performed By: #### C BC #### [facility] [address] [place] [address] Dr. Ngozi Christie NEUT # 5.2 103/ul Normal 1.4-6.5 [facility] Comment on above: Performed By: #### C BC #### [facility] [address] [place] [address] Dr. Ngozi Christie Neutrophils/100 WBC (Bld) 62.2 % Normal 43.0-75.0 [facility] Comment on above: Performed By: #### C BC #### [facility] [address] [place] [address] Dr. Ngozi Christie Platelet mean volume (Bld) [Entitic vol] 10.0 fL Normal 9.5-13.5 [facility] Comment on above: Performed By: #### C BC #### [facility] [address] [place] [address] Dr. Ngozi Christie PLT 332 103/ul Normal 150-450 [facility] Comment on above: Performed By: #### C BC #### [facility] [address] [address] [address] Ngozi Christie RBC 4.85 106/ul Normal 4.20-5.40 [facility] Comment on above: Performed By: #### C BC #### [facility] [address] [address] [address] Ngozi Christie WBC 8.4 103/ul Normal 4.0-11.0 [facility] Comment on above: Performed By: #### C BC #### [facility] [address] [address] [address] Ngozi Christie PREG QUANT HCGon 07-28-2022 HCG QUANT <1 [facility] Comment on above: Performed By: #### P REGQNT #### [facility] [address] [place] [address] Dr. Ngozi Christie HCG RANGE SEE BELOW [facility] Comment on above: Result Comment: 5-50 0.2-1 WEEK 50-500 1-2 WEEKS 100-5,000 2-3 WEEKS 500-10,000 3-4 WEEKS 1,000-50,000 4-5 WEEKS 10,000-100,000 5-6 WEEKS 15,000-200,000 6-8 WEEKS 10,000-100,000 2-3 MONTHS Performed By: #### P REGQNT #### [facility] [address] [place] [address] Dr. Ngozi Christie PAP ACOG PANEL 2: 30 to 65on 05-11-2022 . . Normal [facility] Comment on above: Result Comment: Perf ormed at: WB Performed By: #### [id number] #### [facility] [address] [place] [address] Dr. Ngozi Christie Age Gdln ACOG Testing 30-65 [facility] Comment on above: Performed By: #### [id number] #### [facility] [address] [place] [address] Dr. Ngozi Christie DIAGNOSIS: Comment [facility] Comment on above: Result Comment: NEGA TIVE FOR INTRAEPITHELIAL LESION OR MALIGNANCY. Performed at: WB Performed By: #### [id number] #### [facility] [address] [place] [address] Dr. Ngozi Christie HPV Aptima Negative Normal Negative [facility] Comment on above: Result Comment: This nucleic acid amplification test detects fourteen high-risk HPV types (16,18,31,33,35,39,45,51,52,56,58,59,66,68) without differentiation. Performed at: =G Performed By: #### [id number] #### [facility] [address] [address] [address] Ngozi Christie HPV Genotype Reflex Comment Normal [facility] Comment on above: Result Comment: Crit eria not met, HPV Genotype not performed. Performed at: WB Performed By: #### 4 [id number] #### [facility] [address] [place] [address] Dr. Ngozi Christie Methodology: Comment Normal [facility] Comment on above: Result Comment: This liquid based ThinPrep(R) pap test was screened with the use of an image guided system. Performed at: WB Performed By: #### [id number] #### [facility] [address] [place] [address] Dr. Ngozi Christie Note: Comment Normal [facility] Comment on above: Result Comment: The Pap smear is a screening test designed to aid in the detection of premalignant and malignant conditions of the uterine cervix. It is not a diagnostic procedure and should not be used as the sole means of detecting cervical cancer. Both false-positive and false-negative reports do occur. . Performed at: WB Performed By: #### [id number] #### [facility] [address] [place] [address] Dr. Ngozi Christie Performed by: Comment Normal [facility] Comment on above: Result Comment: Manuel Najera Supervisor Cook Room (ASCP) Performed at: WB Performed By: #### [id number] #### [facility] [address] [place] [address] Dr. Ngozi Christie Specimen adequacy: Comment Normal [facility] Comment on above: Result Comment: Sati sfactory for evaluation. Endocervical and/or squamous metaplastic cells (endocervical component) are present. Performed at: WB Performed By: #### [id number] #### [facility] [address] [address] [address] Ngozi Christie No Panel InformationOrdered By: Milo Potter on 07-22-2020 1. Soft tissue swelling at the lateral aspect of the left ankle. No fracture or disruption of the ankle mortise. 2. Small posterior calcaneal spur. 3. No fracture or joint abnormality is identified in the left foot. [employer] Phone: LEFT ANKLE 3 VIEWS AND LEFT [...] No other significant degenerative spurring is identified. [employer] Phone: Fausto, pn Incoming Radiant Results From [employer] - 07/22/2020 3:39 PM EDT LEFT ANKLE [...] abnormality is identified in the left foot. [facility] Work Phone: XR ANKLE LEFT (MIN 3 VIEWS)o [...] Feliciano Jones MD 07/22/20 Final result Normal [facility] XR FOOT LEFT (MIN 3 VIEWS)on 07-22-2020 [...] Feliciano Jones MD 07/22/20 Final result Normal [facility] Social History Date Type Detail Facility Start: 04-18-2023 Tobacco smoking stat [facility] Never smoked tobacco [facility] Start: 04-18-2023 Alcohol intake Lifetime non-d eris (finding) [facility] Start: 12-22-2022 End: 01-01-2023 Exposure to SARS-CoV-2 (event) Not sure [employer] Start: 07-22-2020 Tobacco smoking stat [facility] Current every day smoker [employer] Work Phone: Start: 07-22-2020 Cigarettes smoked current (pack per day) - Reported [employer] Work Phone: Start: 07-22-2020 Tobacco use and exposure Never used [employer] Start: 1985 Sex Assigned At Not on file M [employer] Work Phone: Start: 1985 Sex Assigned At Female F [facility] History of tobacco use Cigarette Smoker M [employer] Tobacco smoking stat [facility] Tobacco smoking consumption unknown [facility] Work Phone: Gender identity Not on file [facility] Work Phone: Vital Signs Date Time Vital Sign Value Performing Clinician Faci lity 07-22-2020 14:59-0400 Body height 177.8 cm Milo Potter MD Work Phone: [employer] Work Phone: 07-22-2020 14:59-0400 Body mass index (BMI) [Ratio] 25.83 kg/m2 Milo Potter MD Work Phone: [employer] Work Phone: 07-22-2020 14:59-0400 Body temperature 99.1 [degF] Milo Potter MD Work Phone: [employer] Work Phone: 07-22-2020 14:59-0400 Body weight 81.65 kg Milo Potter MD Work Phone: [employer] Work Phone: 07-22-2020 14:59-0400 Diastolic blood pressure 55 mm[Hg] Milo Potter MD Work Phone: [employer] Work Phone: 07-22-2020 14:59-0400 Heart rate 113 /min Milo Potter MD Work Phone: [employer] Work Phone: 07-22-2020 14:59-0400 Respiratory rate 18 /min Milo Potter MD Work Phone: [employer] Work Phone: 07-22-2020 14:59-0400 SaO2% (BldA) [Mass fraction] 100 % Milo Potter MD Work Phone: [employer] Work Phone: 07-22-2020 14:59-0400 Systolic blood pressure 146 mm[Hg] Milo Potter MD Work Phone: [employer] Work Phone: History of Present illness Narrative 01-01-2023 Bryon Barajas MD - 01/01/2023 2:40 PM EDT Note Date & Type Note Facility 01-01-2023 History of Present illness Narrative Report documented in this encounter [facility] Work Phone: Clinical Note 07-28-2022 Note Date & Type Note Facility 07-28-2022 Note OPERATIVE NOTE OPERATION DATE: 07/28/2022 PROCEDURE: Hysteroscopy with robotic assisted laparoscopic salpingectomy. PREOPERATIVE DIAGNOSIS: Menorrhagia, dysmenorrhea, pelvis pain. POSTOPERATIVE DIAGNOSIS: Menorrhagia, dysmenorrhea, pelvis pain. ANESTHESIA: General. SURGEON: Neil Ball D.O. BUSINESS OFFICE REPRESENTATIVE: AMERICA Holcomb URINE OUTPUT: Yellow and clear. [...] and needle counts were correct x2. [facility] Clinical Note 07-19-2022 Note Date & [...] by: EHSAN ARREDONDO Date: 2022-07-19 09:39 [facility] Evaluation note Note Date & Type Note Facility Evaluation note Diagnosis Sprain of left ankle, unspecified ligament, initial encounter- Primary Accidental fall, initial encounter documented in this encounter [employer] Phone: Evaluation note Note Date & Type Note Facility Evaluation note Diagnosis Sprain of left ankle, unspecified ligament, initial encounter- Primary documented in this encounter [facility] Work Phone: Evaluation note Note Date & Type Note Facility Evaluation note No assessment information availa [facility] Work Phone: Hospital Discharge instructions Attachments Note Date & Type Note Facility Hospital Discharge instructions The following attachments cannot be sent through Care Everywhere.Ankle Sprain ([place])RICE: General Info ([place])documented in this encounter [employer] Work Phone: Summary Purpose Family History No [...] section and content) DATE CREATED AUTHOR 09/07/2017 [facility] DATE CREATED AUTHOR AUTHOR'S ORGANIZ ATION 07/24/2020 [facility] DATE CREATED AUTHOR AUTHOR'S ORGANIZ ATION 08/18/2022 [facility] DATE CREATED AUTHOR AUTHOR'S ORGANIZ ATION 01/04/2023 [facility] DATE CREATED AUTHOR AUTHOR'S ORGANIZ ATION 09/05/2023 [facility] EPIC DATE CREATED AUTHOR AUTHOR'S ORGANIZ ATION 09/06/2023 [facility] Reason for Visit (unrecogniz ed section and content) Reason Comments Ankle Pain left ankle pain, 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 [facility]. provides no warranty or guarantee of the accuracy or completeness of information in this document.
== END 2023-09-04 09:56 | disposition home or self-care (01) ==
LOC: LAB 09:55
PROVIDERS: PCP Family Medicine; Visit Provider Obstetrics & Gynecology
DX: N92.0 Excessive and frequent menstruation with regular cycle (principal)
CPT/HCPCS: 88305

== ENCOUNTER 2023-09-20 10:39 | Outpatient (OUT) | payer OTHER, SELFPAY ==
[2023-09-20 11:38] LABS: Basophils Absolute Auto 0.2 10^3/uL (0.0-0.1); Basophils Percent Auto 1.5 % (0.2-2.0); Eosinophils Absolute Auto 0.1 10^3/uL (0.0-0.7); Eosinophils Percent Auto 1.3 % (0.9-7.0); Hematocrit 42.4 % (36.0-48.0); Hemoglobin 14.3 g/dL (12.0-16.0); Immature Granulocytes Abs Auto 0.03 10^3/uL (0.00-0.03); Immature Granulocytes Pct Auto 0.3 % (0.0-0.5); Lymphocytes Absolute Auto 2.3 10^3/uL (1.2-3.8); Lymphocytes Percent Auto 23.5 % (20.5-60.0); Mean Corpuscular HGB Conc 33.7 g/dL (29.9-35.2); Mean Platelet Volume 10.3 fL (9.5-13.5); Monocytes Absolute Auto 0.7 10^3/uL (0.3-0.8); Monocytes Percent Auto 6.6 % (1.7-12.0); Neutrophils Absolute Auto 6.6 10^3/uL (1.4-6.5); Neutrophils Percent Auto 66.8 % (43.0-75.0); Platelet Count 342 10^3/uL (150-450); Red Blood Count 4.93 10^6/uL (4.20-5.40); White Blood Count 9.9 10^3/uL (4.0-11.0)
--- NOTE | 2023-09-20 11:39 | XR_ITS ---
[address] [address] Patient Name: OTONIEL RIVAS MRN: [id number] date: 1985 Sex: F [facility]igned [facility] Current Patient Location: [facility] Accession/Order Number: [id number] Exam Date: 09/20/2023 11:35 Report Date: 09/21/2023 07:35 At the request of: NEIL ESPINOZA Procedure: XR chest 2V EXAMINATION: XR chest 2V HISTORY: Preop exam COMPARISON: No relevant comparison available. TECHNIQUE: PA and lateral FINDINGS: LUNGS: No significant pulmonary parenchymal abnormalities. VASCULATURE: No increased pulmonary vasculature. PLEURA: No pneumothorax, effusion, or pleural thickening. CARDIAC: No cardiomegaly or cardiac silhouette abnormality. MEDIASTINUM: No visible mass or adenopathy. BONES: No fracture or visible bone lesion. OTHER: Negative. XR/XR chest 2V IMPRESSION: No acute cardiopulmonary process Electronically authenticated by: BREANNA QUEZADA Date: 09/21/2023 07:35
[2023-09-20 12:05] LABS: INR 0.98; Partial Thromboplastin Time 28.1 sec (22.3-36.2); Prothrombin Time 10.4 sec (9.0-11.6)
[2023-09-20 13:28] LABS: Alanine Aminotransferase 20 U/L (14-59); Albumin Globulin Ratio 1.2; Albumin Level 3.9 g/dL (3.4-5.0); Alkaline Phosphatase 66 U/L (46-116); Anion Gap 12.9; Aspartate Amino Transferase 10 U/L (15-37); Bilirubin Direct 0.2 mg/dL (0.0-0.2); Bilirubin Total 0.9 mg/dL (0.2-1.0); Calcium 9.5 mg/dL (8.5-10.1); Carbon Dioxide 23.8 mmol/L (21.0-32.0); Chloride 104 mmol/L (98-107); Estimated GFR (African America >60 (>=60); Estimated GFR (Non-African Ame >60 (>=60); Globulin 3.3 g/dL; Glucose 86 mg/dL (74-106); Potassium 4.7 mmol/L (3.5-5.1); Sodium 136 mmol/L (136-145); Total Protein 7.2 g/dL (6.4-8.2)
== END 2023-09-20 10:40 | disposition home or self-care (01) ==
LOC: PST 10:40
PROVIDERS: PCP Family Medicine; Visit Provider Obstetrics & Gynecology
DX: Z01.810 Encounter for preprocedural cardiovascular examination (principal); Z01.812 Encounter for preprocedural laboratory examination; N92.0 Excessive and frequent menstruation with regular cycle; R10.2 Pelvic and perineal pain; N94.6 Dysmenorrhea, unspecified
CPT/HCPCS: 71046; 80048; 80076; 85025; 85610; 85730; 86850; 86900; 86901

== ENCOUNTER 2023-09-27 11:05 | Day surgery (SDC) | payer OTHER, SELFPAY ==
[2023-09-20 11:27] VITALS: BP 122/85; PULSE 70; TEMP 36.4; O2SAT 100; BMI 30.4
[2023-09-27] VITALS (15 sets, daily range): BP systolic 120–134; BP diastolic 65–92; PULSE 58–95; TEMP 36.1–36.9; O2SAT 95–100; BMI 30.2
[2023-09-27 11:12] LABS: Basophils Absolute Auto 0.1 10^3/uL (0.0-0.1); Basophils Percent Auto 1.4 % (0.2-2.0); Eosinophils Absolute Auto 0.1 10^3/uL (0.0-0.7); Eosinophils Percent Auto 1.4 % (0.9-7.0); Hematocrit 41.1 % (36.0-48.0); Immature Granulocytes Abs Auto 0.03 10^3/uL (0.00-0.03); Immature Granulocytes Pct Auto 0.3 % (0.0-0.5); Lymphocytes Absolute Auto 2.7 10^3/uL (1.2-3.8); Lymphocytes Percent Auto 27.1 % (20.5-60.0); Mean Corpuscular HGB Conc 34.1 g/dL (29.9-35.2); Mean Corpuscular Hemoglobin 29.6 pg (26.7-34.0); Mean Corpuscular Volume 86.9 fL (81.0-99.0); Mean Platelet Volume 10.1 fL (9.5-13.5); Monocytes Absolute Auto 0.6 10^3/uL (0.3-0.8); Monocytes Percent Auto 5.9 % (1.7-12.0); Neutrophils Absolute Auto 6.3 10^3/uL (1.4-6.5); Neutrophils Percent Auto 63.9 % (43.0-75.0); Platelet Count 343 10^3/uL (150-450); Red Blood Count 4.73 10^6/uL (4.20-5.40); Red Cell Distribution Width 11.9 % (11.0-15.0); White Blood Count 9.8 10^3/uL (4.0-11.0)
--- OUTSIDE RECORDS SUMMARY | 2023-09-27 11:25 | XMS_ITS | CCD ---
Author Organization [facility] Care Team Providers Care Moose Hunter Name Role Phone UNKNOWN, PROVIDER Unavailable Unavailable UNKNOWN, PROVIDER Unavailable Unavailable SELF, REFERRED Unavailable Unavailable KILO DUNCAN Unavailable Unavailable Perla NELSON, Kilo Rankin Primary Care Provider MILO POTTER Attending Unavailable PERLA, KILO RANKIN Primary Care UnavailBEREKET Altamirano Consulting Unavailable NADEDMARR, DR KILO Diane Primary Care Unavailable LIZZY ., DR TREJO Admitting Unavailable LIZZY ., DR TREJO Attending Unavailable EHSAN ARREDONDO Consulting Unavailable LIZZY ., DR TREJO Admitting Unavailable NADERER, DR KILO Diane Primary Care Unavailable LIZZY ., DR TREJO Consulting Unavailable LIZZY ., DR TREJO Attending Unavailable ANASTASIA ANAYA Consulting Unavailable ABBY II PATTI Consulting Unavailable LIZZY ., DR TREJO Attending Unavailable NADERER, DR KILO Diane Primary Care Unavailable LIZZY ., DR TREJO Admitting Unavailable LIZZY ., DR TREJO Consulting Unavailable MOJOSSY, DARIN E Attending Unavailable Unavailable Primary Care Provider UnavailKilo Kim MD Primary Care Provider NEIL BALL Attending Unavailable NEIL BALL Attending Unavailable NEIL BALL Attending Unavailable Neil Ball Attending Provider Neil Ball Attending Unavailable Neil Ball Admitting Unavailable Allergies Allergy Classification Reported Allergen(s) Allergy Type Date of Onset Reaction(s) Facility Corticosteroids (1 source) Desonide Drug Allergy 4 [facility] (1 source) Desonide Drug Allergy 4 [facility] Repository (1 source) ALLERGIES NOT ON FILE; Translations: [ALLERGIES NOT ON FILE] Propensity to adverse reactions (disorder) [facility] 3 Repository Medications Current Medications Medication Drug [...] Test Name Value Interpretation Reference Range Facility [facility] 09-04-2023 L Specimen: [id number] Received: 09/05/23 Status: PHANI Deluna Num: [id number] Spec Type: Surgical Subm Dr: Neil Ball Tissues: A Endometrium - Biopsy (EMB) Procedures: HE/2, Gross/Micro L4 Age/ Patient Sex Location Account Attending Physician Jennifer Rivas 38/F LABELL [id number] Neil Ball SPEC NUM: [id number] RECD: 09/05/23 STATUS: PHANI DELUNA NUM: [id number] RAMON: 09/04/[address]: Neil Ball ENTERED: 09/05/[address]: Arias,Lab SPEC TYPE: Surgical DEPT: NANO GAN ORDERED: HE/2, Gross/Micro L4 ORDERED: HE/2, Gross/Micro L4 Pathological Diagnosis Endometrium, biopsy: Proliferative endometrium. Clinical Information Menorrhagia N92.0. Gross Description Received in formalin labeled with the patient's name, date of and endometrial biopsy is a 2.4 x 0.7 x 0.2 cm aggregate of mata tissue and mucus, entirely submitted in A1. CPT Codes 56117 Specimen: [id number] Received: 09/05/23 Status: PHANI Deluna Num: [id number] Spec Type: Surgical Subm Dr: Neil Ball Tissues: A Endometrium - Biopsy (EMB) Procedures: HE/2, Gross/Micro L4 Patient: Jennifer Rivas [id number] (Continued) Signed (signature on file) Lefty Ramírez MD 09/06/23 1610 Normal [facility] CBC AUTO DIFFon 07-28-2022 BASO # 0.2 103/ul Critically high 0.0-0.1 [facility] Comment on above: Performed By: #### C BC #### [facility] [address] [place] [address] Dr. Ngozi Christie Basophils/100 WBC (Bld) 1.8 % Normal 0.2-2.0 [facility] Comment on above: Performed By: #### C BC #### [facility] [address] [place] [address] Dr. Ngozi Christie EO # 0.2 103/ul Normal 0.0-0.7 [facility] Comment on above: Performed By: #### C BC #### [facility] [address] [place] [address] Dr. Ngozi Chirstie Eosinophils/100 WBC (Bld) 2.3 % Normal 0.9-7.0 [facility] Comment on above: Performed By: #### C BC #### [facility] [address] [place] [address] Dr. Ngozi Christie Erythrocyte distribution width (RBC) [Ratio] 11.7 % Normal 11.0-15.0 [facility] Comment on above: Performed By: #### C BC #### [facility] [address] [place] [address] Dr. Ngozi Christie Hematocrit (Bld) [Volume fraction] 42.2 % Normal 36.0-48.0 [facility] Comment on above: Performed By: #### C BC #### [facility] [address] [place] [address] Dr. Ngozi Christie Hemoglobin (Bld) [Mass/Vol] 14.0 g/dL Normal 12.0-16.0 [facility] Comment on above: Performed By: #### C BC #### [facility] [address] [place] [address] Dr. Ngozi Christie IG # 0.03 10e3/ul Normal 0.00-0.03 [facility] Comment on above: Performed By: #### C BC #### [facility] [address] [place] [address] Dr. Ngozi Christie IG % 0.4 % Normal 0.0-0.5 [facility] Comment on above: Performed By: #### C BC #### [facility] [address] [place] [address] Dr. Ngozi Christie LYMPH # 2.3 103/ul Normal 1.2-3.8 [facility] Comment on above: Performed By: #### C BC #### [facility] [address] [place] [address] Dr. Ngozi Christie Lymphocytes/100 WBC (Bld) 27.6 % Normal 20.5-60.0 [facility] Comment on above: Performed By: #### C BC #### [facility] [address] [place] [address] Dr. Ngozi Christie MANUAL DIFF REQ NO Normal [facility] Comment on above: Performed By: #### C BC #### [facility] [address] [place] [address] Dr. Ngozi Christie MCH (RBC) [Entitic mass] 28.9 pg Normal 26.7-34.0 [facility] Comment on above: Performed By: #### C BC #### [facility] [address] [place] [address] Dr. Ngozi Christie MCHC (RBC) [Mass/Vol] 33.2 g/dL Normal 29.9-35.2 [facility] Comment on above: Performed By: #### C BC #### [facility] [address] [place] [address] Dr. Ngozi Christie MCV (RBC) [Entitic vol] 87.0 fL Normal 81.0-99.0 [facility] Comment on above: Performed By: #### C BC #### [facility] [address] [place] [address] Dr. Ngozi Christie MONO # 0.5 103/ul Normal 0.3-0.8 [facility] Comment on above: Performed By: #### C BC #### [facility] [address] [place] [address] Dr. Ngozi Christie Monocytes/100 WBC (Bld) 5.7 % Normal 1.7-12.0 [facility] Comment on above: Performed By: #### C BC #### [facility] [address] [place] [address] Dr. Ngozi Christie NEUT # 5.2 103/ul Normal 1.4-6.5 [facility] Comment on above: Performed By: #### C BC #### [facility] [address] [place] [address] Dr. Ngozi Christie Neutrophils/100 WBC (Bld) 62.2 % Normal 43.0-75.0 [facility] Comment on above: Performed By: #### C BC #### [facility] [address] [place] [address] Dr. Ngozi Christie Platelet mean volume (Bld) [Entitic vol] 10.0 fL Normal 9.5-13.5 [facility] Comment on above: Performed By: #### C BC #### [facility] [address] [place] [address] Dr. Ngozi Christie PLT 332 103/ul Normal 150-450 [facility] Comment on above: Performed By: #### C BC #### [facility] [address] [place] [address] Dr. Ngozi Christie RBC 4.85 106/ul Normal 4.20-5.40 [facility] Comment on above: Performed By: #### C BC #### [facility] [address] [place] [address] Dr. Ngozi Christie WBC 8.4 103/ul Normal 4.0-11.0 [facility] Comment on above: Performed By: #### C BC #### [facility] [address] [place] [address] Dr. Ngozi Christie PREG QUANT HCGon 07-28-2022 HCG QUANT <1 Normal [facility] Comment on above: Performed By: #### P REGQNT #### [facility] [address] [place] [address] Dr. Ngozi Christie HCG RANGE SEE BELOW Normal [facility] Comment on above: Result Comment: 5-50 0.2-1 WEEK 50-500 1-2 WEEKS 100-5,000 2-3 WEEKS 500-10,000 3-4 WEEKS 1,000-50,000 4-5 WEEKS 10,000-100,000 5-6 WEEKS 15,000-200,000 6-8 WEEKS 10,000-100,000 2-3 MONTHS Performed By: #### P REGQNT #### [facility] [address] [place] [address] Dr. Ngozi Christie PAP ACOG PANEL 2: 30 to 65on 05-11-2022 . . Normal [facility] Comment on above: Result Comment: Perf ormed at: WB Performed By: #### [id number] #### [facility] [address] [place] [address] Dr. Ngozi Christie Age Gdln ACOG Testing -66 Normal [facility] Comment on above: Performed By: #### [id number] #### [facility] [address] [place] [address] Dr. Ngozi Christie DIAGNOSIS: Comment Normal [facility] Comment on above: Result Comment: NEGA TIVE FOR INTRAEPITHELIAL LESION OR MALIGNANCY. Performed at: WB Performed By: #### [id number] #### [facility] [address] [place] [address] Dr. Ngozi Christie HPV Aptima Negative Normal Negative [facility] Comment on above: Result Comment: This nucleic acid amplification test detects fourteen high-risk HPV types (16,18,31,33,35,39,45,51,52,56,58,59,66,68) without differentiation. Performed at: =G Performed By: #### [id number] #### [facility] [address] [place] [address] Dr. Ngozi Christie HPV Genotype Reflex Comment Normal [facility] Comment on above: Result Comment: Crit eria not met, HPV Genotype not performed. Performed at: WB Performed By: #### [id number] #### [facility] [address] [place] [address] Dr. Ngozi Christie Methodology: Comment Normal [facility] Comment on above: Result Comment: This liquid based ThinPrep(R) pap test was screened with the use of an image guided system. Performed at: WB Performed By: #### [id number] #### [facility] [address] [place] [address] Dr. Ngozi Christie Note: Comment Normal [facility] Comment on above: Result Comment: The Pap smear is a screening test designed to aid in the detection of premalignant and malignant conditions of the uterine cervix. It is not a diagnostic procedure and should not be used as the sole means of detecting cervical cancer. Both false-positive and false-negative reports do occur. . Performed at: WB Performed By: #### [id number] #### [facility] [address] [address] [address] Ngozi Christie Performed by: Comment Normal [facility] Comment on above: Result Comment: Manuel Najera, Cad Specialist (ASCP) Performed at: WB Performed By: #### [id number] #### [facility] [address] [address] [address] Ngozi Christie Specimen adequacy: Comment Normal [facility] Comment on above: Result Comment: Sati sfactory for evaluation. Endocervical and/or squamous metaplastic cells (endocervical component) are present. Performed at: WB Performed By: #### [id number] #### [facility] [address] [address] [address] Ngozi Christie No Panel InformationOrdered By: Milo Potter on 07-22-2020 1. Soft tissue swelling at the lateral aspect of the left ankle. No fracture or disruption of the ankle mortise. 2. Small posterior calcaneal spur. 3. No fracture or joint abnormality is identified in the left foot. [employer] Phone: LEFT ANKLE 3 VIEWS AND LEFT [...] No other significant degenerative spurring is identified. [employer] Phone: Fausto, Mhpn Incoming Radiant Results From [employer]cribe/Pacs - 07/22/2020 3:39 PM EDT LEFT ANKLE [...] abnormality is identified in the left foot. [employer] Phone: XR ANKLE LEFT (MIN 3 VIEWS)o [...] Feliciano Jones MD 07/22/20 Final result Normal [facility] XR FOOT LEFT (MIN 3 VIEWS)on 07-22-2020 [...] Feliciano Jones MD 07/22/20 Final result Normal [facility] Vital Signs Date Time Vital Sign Value Performing Clinician Faci veray 07-22-2020 14:59-0400 Body height 177.8 cm Milo Potter MD Work Phone: [employer] Work Phone: 07-22-2020 14:59-0400 Body mass index (BMI) [Ratio] 25.83 kg/m2 Milo Potter MD Work Phone: [employer] Work Phone: 07-22-2020 14:59-0400 Body temperature 99.1 [degF] Milo Potter MD Work Phone: [employer] Work Phone: 07-22-2020 14:59-0400 Body weight 81.65 kg Milo Potter MD Work Phone: [employer] Work Phone: 07-22-2020 14:59-0400 Diastolic blood pressure 55 mm[Hg] Milo Potter MD Work Phone: [employer] Work Phone: 07-22-2020 14:59-0400 Heart rate 113 /min Milo Potter MD Work Phone: [employer] Work Phone: 07-22-2020 14:59-0400 Respiratory rate 18 /min Milo Potter MD Work Phone: [employer] Work Phone: 07-22-2020 14:59-0400 SaO2% (BldA) [Mass fraction] 100 % Milo Potter MD Work Phone: [employer] Work Phone: 07-22-2020 14:59-0400 Systolic blood pressure 146 mm[Hg] Milo Potter MD Work Phone: [employer] Work Phone: Encounters Encounter Date Encounter Type Care Provider Facility Start: 09-04-2023 End: 09-04-2023 Departed Referred Neil Gusmano Work Phone: [facility] Start: 09-04-2023 End: 09-04-2023 ambulatory NEIL LIZZY Not Available Start: 07-24-2023 End: 07-24-2023 ambulatory NEIL LIZZY Not Available Start: 05-09-2023 End: 05-09-2023 ambulatory NEIL LIZZY Not Available Start: 04-18-2023 Chart abstracting Neil Gusmano DO Work Phone: [facility] Start: 01-01-2023 End: 01-01-2023 ambulatory DARIN DRISCOLL [facility] Start: 01-01-2023 End: 01-01-2023 Postop follow up visit related to original px Darin Driscoll MD Work Phone: [facility] Comment on above: Sprain of left ankle , unspecified ligament, initial encounter (Primary Dx) Start: 07-28-2022 End: 07-28-[address] NEIL BALL . Facility:[facility] Start: 07-22-2022 Encounter for preprocedural cardiovascular examination DR NEIL BALL . [facility] Start: 07-19-2022 End: 07-20-2022 ambulatory BEREKET REESER Facility:[facility] Start: 07-19-2022 End: 07-20-2022 Encounter for preprocedural cardiovascular examination BEREKET NAVARRETE Facility:[facility] Start: 05-04-2022 End: 05-04-[address] NEIL BALL . Facility:[facility] Start: 07-22-2020 End: 07-22-2020 Emergency department patient visit MILO POTTER [facility] Start: 07-22-2020 End: 07-22-2020 Emergency department patient visit Milo Potter MD Work Phone: [facility] ED Comment on above: Sprain of left ankle , unspecified ligament, initial encounter (Primary Dx); Accidental fall, initial encounter Start: 03-02-2016 End: 03-03-2016 Ambulatory PROVIDER UNKNOWN Facility:[facility] Procedures Date Procedure Procedure Detail Performing Clinician Start: 05-04-2022 Microscopic observat ion [Identifier] in Cervix by Cyto stain Neil Ball DO Work Phone: Start: 07-22-2020 End: 07-22-2020 Radex ankle complete minimum 3 views Milo Potter MD Work Phone: Plan of Treatment Date Care Activity Detail Author Start: 01-31-2036 Zoster Vaccines (1 of 2) Zoste r Vaccines (1 of 2) [facility] Start: 05-04-2027 Screening for malign ant neoplasm of cervix [facility] Start: 05-09-2023 End: 05-09-2023 Patient encounter procedure 05/09/2023 1:50 PM EST Office Visit [facility] [address] [place] [id number] Neil Ball DO [address] [place] [address] [facility] Start: 11-10-2022 Influenza vaccination Influenza Vacc ine (#1) [facility] Start: 11-10-2020 Influenza vaccination Flu vacc ine (Season Ended) [employer] Phone: Start: 01-31-2008 DTaP/Tdap/Td Vaccine s (1 - Tdap) DTaP/Tdap/Td Vaccines (1 - Tdap) [facility] Start: 2007 Screening for malign ant neoplasm of cervix [facility] Start: 2005 DTaP/Tdap/Td vaccine (1 - Tdap) DTaP/Tdap/Td vaccine (1 - Tdap) [employer] Phone: Start: 01-31-2004 Diabetes mellitus screening Diabetes Screening [facility] Start: 01-31-2004 Hepatitis C screening Hepatitis C [facility] Start: 2001 HIV screening HIV screen [facility] Work Phone: Start: 1998 COVID-19 Vaccine (1) COVID-19 Vaccin e (1) [employer] Phone: Start: 1987 MMR Vaccines (1 of 1 - Standard series) MMR Vaccines (1 of 1 - Standard series) [facility] Start: 1987 Varicella vaccination Varicell a Vaccines (1 of 2 - 2-dose childhood series) [facility] Start: 1987 Varicella vaccine (1 of 2 - 2-dose childhood series) Varicella vaccine (1 of 2 - 2-dose childhood series) [employer] Phone: Start: 1986 COVID-19 Vaccine (#1) COVID-19 Vacci ne (#1) [facility] Start: 1986 Hepatitis B Vaccines (1 of 3 - 3-dose series) Hepatitis B Vaccines (1 of 3 - 3-dose series) [facility] Start: 1986 Hepatitis C screening Hepatitis C sc reen [employer] Phone: Start: 1986 HIV screening HIV Screening [facility] Start: 1986 Lipid panel Lipid Panel [facility] Start: 1986 Yearly Adult Physical Yearly Adult P hysical [facility] Immunizations Immunization Date Immunization Notes Care Provider Gera mohan 02-16-2016 influenza virus vaccine, unspecified formulation Darin Driscoll MD Work Phone: [facility] Work Phone: Payers Date Payer Category Payer Self-pay 2021 Private Health Insurance CYDNEY SHELTON [id number] 2021-Present [address] [place] [address] [id number] 2021 Private Health Insurance [id number] 2020 Unknown [id number] 2020 Unknown [place] [employer] [id number] 2020-Present [address] [place] [address] [id number] 1986 Unknown [id number] 1986 Unknown [id number] 1986 Unknown [id number] 1986 Unknown [id number] 1986 Unknown [id number] 1986 Unknown [id number] [id number] 1986 Unknown [id number] 1959 Private Health Insurance [id number] Unknown [id number] Unknown [id number] Social History Date Type Detail Facility Start: 07-22-2020 Tobacco smoking stat [facility] Current every day smoker [employer] Phone: History of tobacco use Cigarette Smoker [facility] [employer] Start: 07-22-2020 Cigarettes smoked current (pack per day) - Reported [employer] Phone: Start: 07-22-2020 Tobacco use and exposure Never used [employer] Start: 1986 Sex Assigned At Not on file [employer] Phone: Start: 12-22-2022 End: 01-01-2023 Exposure to SARS-CoV-2 (event) Not sure [employer] Tobacco smoking stat [facility] Tobacco smoking consumption unknown [facility] Work Phone: Gender identity Not on file [facility] Work Phone: Start: 04-18-2023 Tobacco smoking stat [facility] Never smoked tobacco [facility] Start: 04-18-2023 Alcohol intake Lifetime non-d eris (finding) [facility] Start: 1986 Sex Assigned At Female F [facility] History of Present illness Narrative 01-01-2023 Darin Driscoll MD - 01/01/2023 2:40 PM EDT Note Date & Type Note Facility 01-01-2023 History of Present illness Narrative Report documented in this encounter [facility] Work Phone: Clinical Note 07-28-2022 Note Date & Type Note Facility 07-28-2022 Note OPERATIVE NOTE OPERATION DATE: 07/28/2022 PROCEDURE: Hysteroscopy with robotic assisted laparoscopic salpingectomy. PREOPERATIVE DIAGNOSIS: Menorrhagia, dysmenorrhea, pelvis pain. POSTOPERATIVE DIAGNOSIS: Menorrhagia, dysmenorrhea, pelvis pain. ANESTHESIA: General. SURGEON: Neil Ball D.O. CONSTRUCTION SALES MANAGER: AMERICA Holcomb URINE OUTPUT: Yellow and clear. [...] and needle counts were correct x2. [facility] Clinical Note 07-19-2022 Note Date & [...] by: EHSAN ARREDONDO Date: 2022-07-19 09:39 [facility] Evaluation note Note Date & Type Note Facility Evaluation note Diagnosis Sprain of left ankle, unspecified ligament, initial encounter- Primary Accidental fall, initial encounter documented in this encounter [employer] Work Phone: Evaluation note Note Date & Type Note Facility Evaluation note Diagnosis Sprain of left ankle, unspecified ligament, initial encounter- Primary documented in this encounter [facility] Work Phone: Evaluation note Note Date & Type Note Facility Evaluation note No assessment information availa [facility] Work Phone: Hospital Discharge instructions Attachments Note Date & Type Note Facility Hospital Discharge instructions The following attachments cannot be sent through Care Everywhere.Ankle Sprain (Bhutanese)RICE: General Info (Bhutanese)documented in this encounter [employer] Phone: Summary Purpose Family History No Family [...] section and content) DATE CREATED AUTHOR 09/07/2017 [facility] DATE CREATED AUTHOR AUTHOR'S ORGANIZ ATION 07/24/2020 [facility] DATE CREATED AUTHOR AUTHOR'S ORGANIZ ATION 08/18/2022 [facility] DATE CREATED AUTHOR AUTHOR'S ORGANIZ ATION 01/04/2023 [facility] DATE CREATED AUTHOR AUTHOR'S ORGANIZ ATION 09/05/2023 [facility] EP[facility] DATE CREATED AUTHOR AUTHOR'S ORGANIZ ATION 09/06/2023 [facility] Reason for Visit (unrecogniz ed section and content) Reason Comments Ankle Pain left ankle pain, 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 [facility] [employer] [facility]. provides no warranty or guarantee of the accuracy or completeness of information in this document.
[2023-09-27] MEDS: LACTATED RINGER'S SOLUTION 1,000 ML 50 ML IV ×2 (11:41→14:44)
[2023-09-27 11:59] LABS: HCG Quantitative <1 mIU/mL
[2023-09-27] MEDS: CEFAZOLIN SODIUM/DEXTROSE,ISO 2 GM/50 ML PIGGYBACK IV ×2 (12:59→20:32)
--- NOTE | 2023-09-27 15:00 | P.ON_ITS ---
Brief Operative Note Date of procedure: 09/27/23 Pre-op diagnosis general: pelvic pain, menorrhagia, dysmenorrhea Post-op diagnosis: same as pre-op Procedure: NAME OF PROCEDURE: ? Robotic assisted laparoscopic hysterectomy with cystoscopy PROCEDURE:? The patient was taken back to the operating room, where she was prepped and draped in the normal sterile fashion after being placed in the dorsal lithotomy position.? Patient?s anesthesia was found to be adequate.? Surgical timeout was performed using two patient identifiers.? SCDs were on and in place.? Two grams of Ancef were given prior to the surgery.? Sterile Benito catheter was inserted.? Standard size VCare was secured to the uterine cervix and the surgeon changed gloves.? Attention then was turned to the patient's abdomen, where a supraumbilical incision was then made.? Two S retractors were used to identify the patient?s fascia.? The fascia was then tented up using Baldemar clamps and the patient?s fascia was incised sharply.? Patient?s abdomen was identified and entered bluntly.? The patient had the trocar placed and a pneumoperitoneum was obtained.? Approximately 4 liters of CO2 gas was used.? The camera was then placed through the trocar.? At this time, two robot trocars were placed in the patient?s left and right side, two hand widths from the midline, and this was placed under direct visualization.? Please note absent tubes were seen. The uterine ovarian ligament was identified and transected and ligated using the vessel sealer? The vessel sealer was carried down serially to the broad ligament, to the area of the bladder flap, which was then created anteriorly, and the uterine arteries were skeletonized and sealed using the vessel sealer.? The colpotomy was made using the monopolar cautery on cut, and this was carried circumferentially, posteriorly to anteriorly, until the uterus was amputated.? The specimen was then removed intact through the vagina, without difficulty.? The vagina was then closed using two running V-Loc in a non-lock fashion.? The robot was undocked.? The abdomen was desufflated.? The skin defects were closed using 4-0 Vicryl.? Please note, the fascia was closed using 0 Vicryl.? Sponge, lap and needle counts were correct x2.? Patient was taken to recovery room in stable condition.? The patient was awakened by Anesthesia first.? Patient tolerated procedure well.?? Anesthesia: NOAH Surgeon: Jesus Ball Blow Machine Tender Starch Spraying: Keri Hung Estimated blood loss (mL): 75 Pathology: other (uterus and cervix) Condition: stable Disposition: floor Urinary Catheter Management Urinary Catheter Management Urethral: Cath placed during this visit: no
[2023-09-27] MEDS: KETOROLAC TROMETHAMINE 30 MG/ML VIAL IVP (21:04)
[2023-09-27 21:37] LABS: Basophils Absolute Auto 0.1 10^3/uL (0.0-0.1); Basophils Percent Auto 0.4 % (0.2-2.0); Hemoglobin 13.2 g/dL (12.0-16.0); Immature Granulocytes Abs Auto 0.07 10^3/uL (0.00-0.03); Immature Granulocytes Pct Auto 0.4 % (0.0-0.5); Lymphocytes Absolute Auto 0.8 10^3/uL (1.2-3.8); Lymphocytes Percent Auto 4.2 % (20.5-60.0); Mean Corpuscular HGB Conc 34.7 g/dL (29.9-35.2); Mean Corpuscular Hemoglobin 29.8 pg (26.7-34.0); Mean Corpuscular Volume 85.8 fL (81.0-99.0); Mean Platelet Volume 10.5 fL (9.5-13.5); Monocytes Absolute Auto 0.6 10^3/uL (0.3-0.8); Monocytes Percent Auto 3.3 % (1.7-12.0); Neutrophils Absolute Auto 17.7 10^3/uL (1.4-6.5); Neutrophils Percent Auto 91.7 % (43.0-75.0); Platelet Count 324 10^3/uL (150-450); Red Blood Count 4.43 10^6/uL (4.20-5.40); Red Cell Distribution Width 11.8 % (11.0-15.0); White Blood Count 19.2 10^3/uL (4.0-11.0)
[2023-09-27] MEDS: OXYCODONE HCL/ACETAMINOPHEN 5MG/325MG 2 TAB PO (22:15)
== END 2023-09-27 22:28 | disposition home or self-care (01) ==
LOC: SURGOUT 12:59 → MS 16:17
PROVIDERS: PCP Family Medicine; Visit Provider Obstetrics & Gynecology
PROC: (CPT 840; principal; 2023-09-27 12:30)
DX: N92.0 Excessive and frequent menstruation with regular cycle (principal); R10.2 Pelvic and perineal pain; N94.10 Unspecified dyspareunia; N94.6 Dysmenorrhea, unspecified; N84.0 Polyp of corpus uteri; D25.9 Leiomyoma of uterus, unspecified; Z90.49 Acquired absence of other specified parts of digestive tract; F17.210 Nicotine dependence, cigarettes, uncomplicated
CPT/HCPCS: 58570; 36415; 84702; 85025; 88307; 94667; J0690; J1100; J1885; J2250; J2405; J2704; J2710; J3010

== ENCOUNTER 2023-12-21 11:22 | Outpatient (OUT) | payer OTHER, SELFPAY ==
[2023-12-21 11:51] LABS: Estimated Average Glucose 100 mg/dL; Glycohemoglobin A1C 5.1 % (4.5-6.2)
[2023-12-21 12:06] LABS: Basophils Absolute Auto 0.1 10^3/uL (0.0-0.1); Basophils Percent Auto 1.1 % (0.2-2.0); Eosinophils Absolute Auto 0.1 10^3/uL (0.0-0.7); Hematocrit 44.4 % (36.0-48.0); Hemoglobin 15.1 g/dL (12.0-16.0); Immature Granulocytes Abs Auto 0.15 10^3/uL (0.00-0.03); Immature Granulocytes Pct Auto 1.4 % (0.0-0.5); Lymphocytes Absolute Auto 2.3 10^3/uL (1.2-3.8); Lymphocytes Percent Auto 21.1 % (20.5-60.0); Mean Corpuscular Hemoglobin 29.1 pg (26.7-34.0); Mean Corpuscular Volume 85.5 fL (81.0-99.0); Mean Platelet Volume 10.2 fL (9.5-13.5); Monocytes Absolute Auto 0.8 10^3/uL (0.3-0.8); Monocytes Percent Auto 7.4 % (1.7-12.0); Neutrophils Absolute Auto 7.4 10^3/uL (1.4-6.5); Platelet Count 390 10^3/uL (150-450); Red Blood Count 5.19 10^6/uL (4.20-5.40); Red Cell Distribution Width 11.9 % (11.0-15.0); White Blood Count 10.9 10^3/uL (4.0-11.0)
[2023-12-21 13:00] LABS: Alanine Aminotransferase 21 U/L (14-59); Albumin Globulin Ratio 1.3; Albumin Level 4.1 g/dL (3.4-5.0); Alkaline Phosphatase 73 U/L (46-116); Anion Gap 12.8; Aspartate Amino Transferase 10 U/L (15-37); Bilirubin Direct 0.2 mg/dL (0.0-0.2); Bilirubin Total 0.8 mg/dL (0.2-1.0); Calcium 9.6 mg/dL (8.5-10.1); Carbon Dioxide 25.1 mmol/L (21.0-32.0); Chloride 103 mmol/L (98-107); Chol HDL Ratio 2.5; Cholesterol 152 mg/dL (<=200); Estimated GFR (African America >60 (>=60 mL/min/1.73m^2); Estimated GFR (Non-African Ame >60 (>=60 mL/min/1.73m^2); Globulin 3.2 g/dL; Glucose 98 mg/dL (74-106); HDL Cholesterol 60 mg/dL (40-60); Potassium 3.9 mmol/L (3.5-5.1); Sodium 137 mmol/L (136-145); Thyroid Stimulating Hormone 1.233 uIU/mL (0.358-3.740); Total Protein 7.3 g/dL (6.4-8.2); Triglycerides 30 mg/dL (<=150)
== END 2023-12-21 11:23 | disposition home or self-care (01) ==
LOC: LAB 11:25
PROVIDERS: PCP Family Medicine; Visit Provider Family Medicine
DX: Z00.00 Encounter for general adult medical examination without abnormal findings (principal)
CPT/HCPCS: 36415; 80048; 80061; 80076; 83036; 84443; 85025

== ENCOUNTER 2024-03-07 23:45 | Emergency (ER) | payer OTHER, SELFPAY ==
[2024-03-07 23:49] VITALS: BP 122/84; PULSE 85; TEMP 36.5; O2SAT 100; BMI 29.5
--- NOTE | 2024-03-07 23:56 | ED_ITS ---
HPI - Nausea/Vomiting/Diarrhea General Chief complaint: Nausea/Vomiting/Diarrhea Stated complaint: vomiting Time Seen by Provider: 03/07/24 23:49 Source: patient Mode of arrival: walk-in Limitations: no limitations History of Present Illness HPI Narrative: 39-year-old female presents for nausea and vomiting for couple hours. Her has been sick recently with similar symptoms. No diarrhea or hematemesis or fever. 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 Related Data Previous Rx's ?Medication ?Instructions ?Recorded ondansetron 4 mg disintegrating 4 mg PO Q6H PRN nausea and 03/08/24 tablet vomiting #20 tabs Allergies Allergy/AdvReac Type Severity Reaction Status Date / Time No Known Drug Allergies Allergy Verified 03/07/24 23:49 Review of Systems ROS Narrative A ten point review of systems is negative except as noted above. [facility] Medical History (Updated 03/08/24 @ 01:36 by Catarino Pitts MD) Migraine ?G43.909 - Migraine, unspecified, not intractable, without status migrainosus (ICD-10) Dysmenorrhea ?N94.6 - Dysmenorrhea, unspecified (ICD-10) Dyspareunia Pelvic pain ?R10.2 - Pelvic and perineal pain (ICD-10) Menorrhagia ?N92.0 - Excessive and frequent menstruation with regular cycle (ICD-10) Surgical History (Updated 09/20/23 @ 11:21 by Amelie Carbone NP) History of cholecystectomy ?Z90.49 - Acquired absence of other specified parts of digestive tract (ICD- 10) History of spinal surgery ?Z98.890 - Other specified postprocedural states (ICD-10) History of bilateral salpingectomy (07/28/22) ?Z90.79 - Acquired absence of other genital organ(s) (ICD-10) Family History (Updated 09/20/23 @ 11:21 by Amelie Carbone NP) Other Family history of breast cancer Family history of diabetes mellitus Social History (Updated 09/20/23 @ 11:17 by Amelie Carbone NP) Within the past year, how often did you have a drink containing alcohol: 2-4 times a month Smoking status: Current every day smoker What tobacco products do you use: cigarettes Do you use any of these nicotine containing products: e-cigarettes Non-prescribed substance use: denies use Previous occupational history: Human Services Supervisor Highest level of school completed/degree received: high school graduate Little interest or pleasure in doing things: not at all Feeling down, depressed, or hopeless: not at all Exam Narrative Exam Narrative: Nurses note and vital signs reviewed and patient is not hypoxic. General: The patient appears well and in no apparent distress. Patient is resting comfortably on cart. Skin: Warm, dry, no pallor noted. There is no rash noted. Head: Normocephalic, atraumatic Eye: Normal conjunctiva, no drainage Ears, Nose, Mouth, and Throat: oral mucosa is moist. Nares patent. Cardiovascular: Regular Rate and Rhythm Respiratory: Patient is in no distress, no accessory muscle use, lungs are clear to auscultation, no wheezing, rales or rhonchi Back: non-tender GI: Soft and nontender Musculoskeletal: The patient has no evidence of calf tenderness, no pitting edema, symmetrical pulses noted bilaterally Neurological: A&O, normal speech Psychiatric: Cooperative Constitutional Vital Signs, click to edit/add: Last Vital Signs Temp 97.7 F 03/07/24 23:49 Pulse 85 03/07/24 23:49 Resp 15 03/07/24 23:49 BP 122/84 03/07/24 23:49 Pulse Ox 100 03/07/24 23:49 O2 Del Method Room Air 03/07/24 23:49 Course Vital Signs Vital signs: Vital Signs Temperature 97.7 F 03/07/24 23:49 Pulse Rate 85 03/07/24 23:49 Respiratory Rate 15 03/07/24 23:49 Blood Pressure 122/84 03/07/24 23:49 Pulse Oximetry 100 03/07/24 23:49 Oxygen Delivery Method Room Air 03/07/24 23:49 Temperature 97.7 F 03/07/24 23:49 Pulse Rate 85 03/07/24 23:49 Respiratory Rate 15 03/07/24 23:49 Blood Pressure 122/84 03/07/24 23:49 Pulse Oximetry 100 03/07/24 23:49 Oxygen Delivery Method Room Air 03/07/24 23:49 MDM - Nausea/Vomiting/Diarrhea MDM Narrative Medical decision making narrative: Blood work is nonspecific. She seems to be feeling improved after IV fluids and Zofran and is discharged home with a prescription for Zofran. She was offered a work note but states she does not want it. Treatment diagnosis and follow-up were discussed with the patient. Differential Diagnosis Differential diagnosis: Likely food poisoning, gastroenteritis and dehydration Lab Data Attestation: I reviewed the patient's lab results. Labs: Lab Results 03/08/24 Range/Units 00:00 WBC 16.4 H (4.0-11.0) 10^3/uL RBC 5.32 (4.20-5.40) 10^6/uL Hgb 15.3 (12.0-16.0) g/dL Hct 45.8 (36.0-48.0) % MCV 86.1 (81.0-99.0) fL MCH 28.8 (26.7-34.0) pg MCHC 33.4 (29.9-35.2) g/dL RDW 11.7 (11.0-15.0) % Plt Count 369 (150-450) 10^3/uL MPV 10.2 (9.5-13.5) fL Neut % (Auto) 87.3 H (43.0-75.0) % Lymph % (Auto) 5.4 L (20.5-60.0) % [place] % (Auto) 5.2 (1.7-12.0) % Eos % (Auto) 0.8 L (0.9-7.0) % Baso % (Auto) 0.9 (0.2-2.0) % Neut # (Auto) 14.3 H (1.4-6.5) 10^3/uL Lymph # (Auto) 0.9 L (1.2-3.8) 10^3/uL [place] # (Auto) 0.9 H (0.3-0.8) 10^3/uL Eos # (Auto) 0.1 (0.0-0.7) 10^3/uL Baso # (Auto) 0.1 (0.0-0.1) 10^3/uL Abs Immat Gran (auto) 0.07 H (0.00-0.03) 10^3/uL Imm/Tot Granulo (auto) 0.4 (0.0-0.5) % Sodium 141 (136-145) mmol/L Potassium 3.6 (3.5-5.1) mmol/L Chloride 105 (98-107) mmol/L Carbon Dioxide 28.9 (21.0-32.0) mmol/L Anion Gap 10.7 BUN 14.0 (7.0-18.0) mg/dL Creatinine 0.89 (0.55-1.02) mg/dL Est GFR ( Amer) >60 (>=60 mL/min/1.73m^2) Est GFR (Non-Af Amer) >60 (>=60 mL/min/1.73m^2) BUN/Creatinine Ratio 15.7 Glucose 123 H (74-106) mg/dL Calcium 8.9 (8.5-10.1) mg/dL Discharge Plan Discharge Chief Complaint: Nausea/Vomiting/Diarrhea Clinical Impression: Nausea and vomiting Patient Disposition: Home, Self-Care Time of Disposition Decision: 01:36 Condition: Good Mode of Transportation: Private Vehicle Prescriptions / Home Meds: New ondansetron 4 mg tablet,disintegrating 4 mg PO Q6H PRN (Reason: nausea and vomiting) Qty: 20 0RF Print Language: Czech Instructions: Acute Nausea and Vomiting (ED) Referrals: Kilo Levi MD [Primary Care Provider] - 1 week
--- OUTSIDE RECORDS SUMMARY | 2024-03-07 23:57 | XMS_ITS | CCD ---
Author Organization [facility] Care Team Providers Care Machine Strap Buckler Name Role Phone UNKNOWN, PROVIDER Unavailable Unavailable UNKNOWN, PROVIDER Unavailable Unavailable SELF, REFERRED Unavailable Unavailable KILO DUNCAN Unavailable Kilo Valenzuela MD Primary Care Provider MILO POTTER Attending Unavailable KILO DUNCAN Primary Care UnavailBEREKET Altamirano Consulting Unavailable NADTAMIKO, DR KILO Diane Primary Care Unavailable LIZZY [...] Unavailable LIZZY ., DR TREJO Consulting Unavailable YAMILA, BRYON E Attending Unavailable Unavailable Primary Care Provider UnavailKilo Kim MD Primary Care Provider Neil Ball Attending Provider [phone] LizzyDO Trejo Attending Provider Neil Ball Attending Unavailable Neil Ball Admitting Unavailable Neil Ball Attending Unavailable Neil Ball Admitting Unavailable NEIL BALL Attending Unavailable LIZZY, NEIL Attending Unavailable NEIL BALL Attending Unavailable CASSANDRA CASTILLO Attending Unavailable CASSANDRA CASTILLO Attending Unavailable KILO DUNCAN Attending Unavailable Kilo Duncan MD Primary Care Provider Allergies Allergy Classification Reported Allergen(s) Allergy Type Date of Onset Reaction(s) Facility Corticosteroids (1 source) Desonide Drug Allergy 4 [facility] (1 source) Desonide Drug Allergy 4 [facility] Repository (1 source) ALLERGIES NOT ON FILE; Translations: [ALLERGIES NOT ON FILE] Propensity to adverse reactions (disorder) [facility] 3 Repository (4 sources) Desonide Propensity to adverse reactions 4 [facility] Medications Current Medications Medication Drug Class(es) Dates Sig (Normalized) Sig (Original) acyclovir 50 mg/ml topical cream (6 sources) Herpesvirus Nucleoside Analog DNA Polymerase Inhibitor, Herpes Simplex Virus Nucleoside Analog DNA Polymerase Inhibitor, Herpes Zoster Virus Nucleoside Analog DNA Polymerase Inhibitor End: 12-21-2023 acyclovir (Zovirax) 5 % cream 12/21/2023 Discontinued cefdinir 300 mg oral capsule (2 sources) Cephalosporin Antibacterial Start: 12-07-2023 End: 12-21-2023 take 1 capsule by mouth in the morning cefdinir (Omnicef) 300 MG capsule Indications: Upper respiratory tract infection, unspecified type Take 1 capsule (300 mg) by mouth in the morning and 1 capsule (300 mg) before bedtime. Do all this for 10 days. 20 capsule 12/07/2023 12/21/2023 Discontinued cyclobenzaprine hydrochloride 10 mg oral tablet (6 sources) Muscle Relaxant End: 12-21-2023 cyclobenzaprine (Flexeril) 10 MG tablet 12/21/2023 Discontinued diazePAM 5 mg oral tablet (6 sources) Benzodiazepine End: 12-21-2023 diazePAM (Valium) 5 MG tablet Take 1 tablet by oral route. 12/21/2023 Discontinued doxycycline hyclate 100 mg oral capsule (6 sources) Tetracycline-class Drug Start: 07-28-2022 End: 12-21-2023 take 1 capsule by mouth in the morning doxycycline (Vibramycin) 100 MG capsule Take 100 mg by mouth in the morning and 100 mg before bedtime. 07/28/2022 12/21/2023 Discontinued ibuprofen 800 mg oral tablet (6 sources) Nonsteroidal Anti-inflammatory Drug End: 12-21-2023 ibuprofen 800 MG tablet 12/21/2023 Discontinued meloxicam 7.5 mg oral tablet (6 sources) Nonsteroidal Anti-inflammatory Drug End: 12-21-2023 meloxicam (Mobic) 7.5 MG tablet 12/21/2023 Discontinued modified 24 hr metFORMIN hydrochloride 500 mg extended release oral tablet (6 sources) Biguanide End: 12-21-2023 take 1 tablet by mouth three times daily metFORMIN, MOD, (Glumetza) 500 MG 24 hr tablet Take 1 tablet 3 times a day by oral route. 12/21/2023 Discontinued nabumetone 500 mg oral tablet (6 sources) Nonsteroidal Anti-inflammatory Drug End: 12-21-2023 take 1 tablet by mouth twice daily nabumetone (Relafen) 500 MG tablet Take 1 tablet twice a day by oral route. 12/21/2023 Discontinued tiZANidine 4 mg oral tablet (6 sources) Central alpha-2 Adrenergic Agonist End: 12-21-2023 take 1 tablet by mouth three times daily tiZANidine (Zanaflex) 4 MG tablet Take 1 tablet 3 times a day by oral route. 12/21/2023 Discontinued valACYclovir 500 mg oral tablet (7 sources) Herpesvirus Nucleoside Analog DNA Polymerase Inhibitor, Herpes Simplex Virus Nucleoside Analog DNA Polymerase Inhibitor, Herpes Zoster Virus Nucleoside Analog DNA Polymerase Inhibitor End: 12-21-2023 valACYclovir (Valtrex) 500 MG tablet valacyclovir 500 mg tablet 12/21/2023 Discontinued varenicline 0.5 mg oral tablet (7 sources) Partial Cholinergic Nicotinic Agonist End: 12-21-2023 varenicline (Chantix) 0.5 MG tablet Chantix 12/21/2023 Discontinued Problems Active Problems Problem Classification Problem Date Documented Da te Episodic/Chronic Abdominal pain (1 source) Pelvic and perineal pain; Translations: [PELVIC AND PERINEAL PAIN] Onset: 08-08-2022 Episodic Contraceptive and procreative management (1 source) Encounter for sterilization; Translations: [ENCOUNTER FOR STERILIZATION] Onset: 08-08-2022 Episodic E Codes: Fall (1 source) Accidental fall ; Translations: [Unspecified fall, initial encounter] Episodic Headache; including migraine (3 sources) Migraine without aura, not refractory ; Translations: [Migraine without aura, not intractable, without status migrainosus] Onset: 12-21-2023 12-21-2023 Chronic Inflammatory diseases of female pelvic organs (1 [...] THAN MALIG NEOPLM] Onset: 03-02-2016 Episodic Other aftercare (2 sources) Surgical follow-up; Translations: [Encounter for follow-up examination after completed treatment for conditions other than malignant neoplasm] 11-08-2023 Episodic Other connective tissue disease (1 source) Arthrodesis status; Translations: [ARTHRODESIS STATUS] Onset: 03-02-2016 Episodic Other screening for suspected conditions (not mental disorders or infectious disease) (4 sources) Encounter for screening for malignant neoplasm of cervix; Translations: [ENC SCREENING MALIG NEOPLASM CERV] Onset: 05-04-2022 Episodic Results Test Name Value Interpretation Reference Range Facility [facility] HEMOGLOBIN A1Con 024 Glucose [Mass/Vol] 100 mg/dL [facility] HbA1c (Bld) [Mass fraction] 5.1 % 4.5 - 6.2 % [facility] Comment on above: ADA RECOMMENDED LIMI T 4.0 - 6.0 ADA THERAPEUTIC TARGET < 7.0 ACTION SUGGESTED > 7.0 [facility] [place] 09-27-2023 L Specimen: [id number] Received: 09/28/23 Status: [facility] Num: [id number] Spec Type: Surgical Subm Dr: Neil Ball Tissues: A Uterus w/ or w/o tubes ovaries except neoplastic or prolap (UTERUS AND CER Procedures: HE/12, Gross/Micro L5 Age/ Patient Sex Location Account Attending Physician CaJennifer 38/F LABELL [id number] Neil Ball SPEC NUM: [id number] RECD: 09/28/23 STATUS: [facility] NUM: [id number] RAMON: 09/27/[address]: Neil Ball ENTERED: 09/28/[address] [facility] DR: Arias,Lab SPEC TYPE: Surgical DEPT: NANO GAN ORDERED: HE/12, Gross/Micro L5 ORDERED: HE/12, Gross/Micro L5 Pathological Diagnosis Uterus, Cervix, Hysterectomy: Uterus: Leiomyoma. Endometrial polyp. Secretory endometrium. Cervix: Unremarkable. Clinical Information Menorrhagia, pelvic pain Gross Description Received in formalin, labeled with the patient's name, date of and uterus, cervix is a 87.2 g uterus with attached cervix, measuring 5.9 cm cornu to cornu, 8.4 cm fundus to os, 3.7 cm anterior-posterior, covered by mata-purple smooth serosa. The roughened brown cervix is 2.6 cm long and 3.2 cm wide, leading to a 3.5 x 3.3 cm ectocervix with a 1.4 x 0.2 cm wide os. Sectioning into the cervix reveals 6 clear and gelatinous filled cysts ranging from 0.5-0.3 cm. The 2.8 cm long and 0.5-0.8 cm wide endocervical canal leads to a triangular3.9 cm fundus to internal os and 3.1 cm cornu to cornu endometrial cavity. The pink-mata, soft 0.3-0.4 cm thick endometrium overlies a 1.1cm thick mata trabeculated myometrium. A 0.2 x 0.2 cm well-circumscribed white nodule is located within the posterior myometrium. No additional nodules, cysts, areas of necrosis or hemorrhage are present. Marine Designer sections submitted as follows: A1: Anterior cervix A2: Posterior cervix Specimen: [id number] Received: 09/28/23 Status: [facility] Num: [id number] Spec Type: Surgical Subm Dr: Neil Ball Tissues: A Uterus w/ or w/o tubes ovaries except neoplastic or prolap (UTERUS AND CER Procedures: , Gross/Micro L5 Patient: Jennifer Ca [id number] (Continued) Specimen: [id number] Received: 09/28/23 (Continued) Gross Description (Continued) Signed (signature on file) Lefty Ramírez MD 10/02/23 1410 Specimen: [id number] Received: 09/28/23 Status: [facility] Num: [id number] Spec Type: Surgical Subm Dr: Neil Ball Tissues: A Uterus w/ or w/o tubes ovaries except neoplastic or prolap (UTERUS AND CER Procedures: , Gross/Micro L5 Patient: Jennifer Ca [id number] (Continued) Specimen: [id number] Received: 09/28/23 (Continued) Gross Description (Continued) A3-A4: Anterior endomyometrium A5-A6: Posterior endomyometrium A7: Nodule CPT Codes 00976 Specimen: [id number] Received: 09/28/23 Status: [facility] Num: [id number] Spec Type: Surgical Subm Dr: Neil Ball Tissues: A Uterus w/ or w/o tubes ovaries except neoplastic or prolap (UTERUS AND CER Procedures: , Gross/Micro L5 Patient: Jennifer Ca [id number] (Continued) Signed (signature on file) Lefty Ramírez MD 10/02/23 1410 Normal [facility] [place] 09-04-2023 L Specimen: [id number] Received: 09/05/23-1299 Status: [facility] Num: [id number] Spec Type: Surgical Subm Dr: Neil Ball Tissues: A Endometrium - Biopsy (EMB) Procedures: , Gross/Micro L4 Age/ Patient Sex Location Account Attending Physician Jennifer Ca 38/F LABELL [id number] eNil Lizzy SPEC NUM: [id number] RECD: 09/05/23 STATUS: [facility] NUM: [id number] RAMON: 09/04/[address] [facility] [address]: Neil Ball ENTERED: 09/05/[address] [facility] DR: Arias,Lab SPEC TYPE: Surgical DEPT: NANO GAN ORDERED: HE/2, Gross/Micro L4 ORDERED: HE/2, Gross/Micro L4 Pathological Diagnosis Endometrium, biopsy: Proliferative endometrium. Clinical Information Menorrhagia N92.0. Gross Description Received in formalin labeled with the patient's name, date of and endometrial biopsy is a 2.4 x 0.7 x 0.2 cm aggregate of mata tissue and mucus, entirely submitted in A1. CPT Codes 16814 Specimen: [id number] Received: 09/05/23 Status: [facility] Num: [id number] Spec Type: Surgical Subm Dr: Neil Ball Tissues: A Endometrium - Biopsy (EMB) Procedures: HE/2, Gross/Micro L4 Patient: Jennifer Ca [id number] (Continued) Signed (signature on file) Lefty Ramírez MD 09/06/23 1610 Normal [facility] CBC AUTO DIFFon 07-28-2022 BASO # 0.2 103/ul Critically high 0.0-0.1 [facility] Comment on above: Performed By: #### C BC #### [facility] [address] [place] [address] Dr. Ngozi Christie Basophils/100 WBC (Bld) 1.8 % Normal 0.2-2.0 [facility] Comment on above: Performed By: #### C BC #### [facility] [address] [place] [address] Dr. Ngozi Christie EO # 0.2 103/ul Normal 0.0-0.7 [facility] Comment on above: Performed By: #### C BC #### [facility] [address] [place] [address] Dr. Ngozi Christie Eosinophils/100 WBC (Bld) 2.3 % Normal 0.9-7.0 [facility] Comment on above: Performed By: #### C BC #### [facility] [address] [place] [address] Dr. Ngozi Christie Erythrocyte distribution width (RBC) [Ratio] 11.7 % Normal 11.0-15.0 [facility] Comment on above: Performed By: #### C BC #### [facility] [address] [place] [address] Dr. Ngozi Christie Hematocrit (Bld) [Volume fraction] 42.2 % Normal 36.0-48.0 [facility] Comment on above: Performed By: #### C BC #### [facility] [address] [place] [address] Dr. Ngozi Christie Hemoglobin (Bld) [Mass/Vol] 14.0 g/dL Normal 12.0-16.0 [facility] Comment on above: Performed By: #### C BC #### [facility] [address] [place] [address] Dr. Ngozi Christie IG # 0.03 10e3/ul Normal 0.00-0.03 [facility] Comment on above: Performed By: #### C BC #### [facility] [address] [place] [address] Dr. Ngozi Christie IG % 0.4 % Normal 0.0-0.5 [facility] Comment on above: Performed By: #### C BC #### [facility] [address] [place] [address] Dr. Ngozi Christie LYMPH # 2.3 103/ul Normal 1.2-3.8 [facility] Comment on above: Performed By: #### C BC #### [facility] [address] [place] [address] Dr. Ngozi Christie Lymphocytes/100 WBC (Bld) 27.6 % Normal 20.5-60.0 [facility] Comment on above: Performed By: #### C BC #### [facility] [address] [place] [address] Dr. Ngozi Christie MANUAL DIFF REQ NO Normal [facility] Comment on above: Performed By: #### C BC #### [facility] [address] [place] [address] Dr. Ngozi Christie MCH (RBC) [Entitic mass] 28.9 pg Normal 26.7-34.0 [facility] Comment on above: Performed By: #### C BC #### [facility] [address] [place] [address] Dr. Ngozi Christie MCHC (RBC) [Mass/Vol] 33.2 g/dL Normal 29.9-35.2 [facility] Comment on above: Performed By: #### C BC #### [facility] [address] [place] [address] Dr. Ngozi Christie MCV (RBC) [Entitic vol] 87.0 fL Normal 81.0-99.0 [facility] Comment on above: Performed By: #### C BC #### [facility] [address] [address] [address] Ngozi Christie MONO # 0.5 103/ul Normal 0.3-0.8 [facility] Comment on above: Performed By: #### C BC #### [facility] [address] [place] [address] Dr. Ngozi Christie Monocytes/100 WBC (Bld) 5.7 % Normal 1.7-12.0 [facility] Comment on above: Performed By: #### C BC #### [facility] [address] [place] [address] Dr. Ngozi Christie NEUT # 5.2 103/ul Normal 1.4-6.5 [facility] Comment on above: Performed By: #### C BC #### [facility] [address] [place] [address] Dr. Ngozi Christie Neutrophils/100 WBC (Bld) 62.2 % Normal 43.0-75.0 [facility] Comment on above: Performed By: #### C BC #### [facility] [address] [place] [address] Dr. Ngozi Christie Platelet mean volume (Bld) [Entitic vol] 10.0 fL Normal 9.5-13.5 [facility] Comment on above: Performed By: #### C BC #### [facility] [address] [place] [address] Dr. Ngozi Christie PLT 332 103/ul Normal 150-450 [facility] Comment on above: Performed By: #### C BC #### [facility] [address] [place] [address] Dr. Ngozi Christie RBC 4.85 106/ul Normal 4.20-5.40 [facility] Comment on above: Performed By: #### C BC #### [facility] [address] [place] [address] Dr. Ngozi Christie WBC 8.4 103/ul Normal 4.0-11.0 [facility] Comment on above: Performed By: #### C BC #### [facility] [address] [place] [address] Dr. Ngozi Christie PREG QUANT HCGon 07-28-2022 HCG QUANT <1 Normal [facility] Comment on above: Performed By: #### P REGQNT #### [facility] [address] [place] [address] Dr. gNozi Christie HCG RANGE SEE BELOW [facility] Comment on above: Result Comment: 5-50 0.2-1 WEEK 50-500 1-2 WEEKS 100-5,000 2-3 WEEKS 500-10,000 3-4 WEEKS 1,000-50,000 4-5 WEEKS 10,000-100,000 5-6 WEEKS 15,000-200,000 6-8 WEEKS 10,000-100,000 2-3 MONTHS Performed By: #### P REGQNT #### [facility] [address] [place] [address] Dr. Ngozi Christie PAP ACOG PANEL 2: 30 to 65on 05-11-2022 . . Normal [facility] Comment on above: Result Comment: Perf ormed at: WB Performed By: #### [id number] #### [facility] [address] [place] [address] Dr. Ngozi Christie Age Gdln ACOG Testing 30-65 Normal [facility] Comment on above: Performed By: #### [id number] #### [facility] [address] [place] [address] Dr. Ngozi Christie DIAGNOSIS: Comment Normal [facility] Comment on above: Result Comment: NEGA TIVE FOR INTRAEPITHELIAL LESION OR MALIGNANCY. Performed at: WB Performed By: #### [id number] #### [facility] [address] [place] [address] Dr. Ngozi Christie HPV Aptima Negative Normal Negative [facility] Comment on above: Result Comment: This nucleic acid amplification test detects fourteen high-risk HPV types (16,18,31,33,35,39,45,51,52,56,58,59,66,68) without differentiation. Performed at: =G Performed By: #### [id number] #### [facility] [address] [place] [address] Dr. Ngozi Christie HPV Genotype Reflex Comment Normal [facility] Comment on above: Result Comment: Crit eria not met, HPV Genotype not performed. Performed at: WB Performed By: #### [id number] #### [facility] [address] [place] [address] Dr. Ngozi Christie Methodology: Comment Normal [facility] Comment on above: Result Comment: This liquid based ThinPrep(R) pap test was screened with the use of an image guided system. Performed at: WB Performed By: #### [id number] #### [facility] [address] [place] [address] Dr. Ngozi Christie Note: Comment Normal [facility] Comment on above: Result Comment: The Pap smear is a screening test designed to aid in the detection of premalignant and malignant conditions of the uterine cervix. It is not a diagnostic procedure and should not be used as the sole means of detecting cervical cancer. Both false-positive and false-negative reports do occur. . Performed at: WB Performed By: #### [id number] #### [facility] [address] [place] [address] Dr. Ngozi Christie Performed by: Comment Normal [facility] Comment on above: Result Comment: Manuel Najera [employer] (ASCP) Performed at: WB Performed By: #### [id number] #### [facility] [address] [place] [address] Dr. Ngozi Christie Specimen adequacy: Comment Normal [facility] Comment on above: Result Comment: Sati sfactory for evaluation. Endocervical and/or squamous metaplastic cells (endocervical component) are present. Performed at: WB Performed By: #### [id number] #### [facility] [address] [address] [address] Ngozi Christie No Panel InformationOrdered By: Milo Potter on 07-22-2020 1. Soft tissue swelling at the lateral aspect of the left ankle. No fracture or disruption of the ankle mortise. 2. Small posterior calcaneal spur. 3. No fracture or joint abnormality is identified in the left foot. [email or web address] Phone: LEFT ANKLE 3 VIEWS AND LEFT [...] No other significant degenerative spurring is identified. [email or web address] Phone: Fausto, pn Incoming Radiant Results From [employer] - 07/22/2020 3:39 PM EDT LEFT ANKLE [...] abnormality is identified in the left foot. [email or web address] Phone: XR ANKLE LEFT (MIN 3 VIEWS)o [...] Feliciano Jones MD 07/22/20 Final result Normal [facility] XR FOOT LEFT (MIN 3 [...] Feliciano Jones MD 07/22/20 Final result Normal [facility] Vital Signs Date Time Vital Sign Value Performing Clinician Krysta gamez 12-21-2023 10:26-0400 Body height 175.3 cm Kilo Duncan MD Work Phone: [facility] 12-21-2023 10:26-0400 Body mass index (BMI) [Ratio] 29.98 kg/m2 Kilo Duncan MD Work Phone: [facility] 12-21-2023 10:26-0400 Body temperature 97.81 [degF] Kilo Duncan MD Work Phone: [facility] 12-21-2023 10:26-0400 Body weight 92.08 kg Kilo Duncan MD Work Phone: [facility] 12-21-2023 10:26-0400 Diastolic blood pressure 72 mm[Hg] Kilo Duncan MD Work Phone: [facility] 12-21-2023 10:26-0400 Heart rate 62 /min Kilo Duncan MD Work Phone: [facility] 12-21-2023 10:26-0400 Respiratory rate 18 /min Kilo Duncan MD Work Phone: [facility] 12-21-2023 10:26-0400 SaO2% (BldA) [Mass fraction] 97 % Kilo Duncan MD Work Phone: [facility] 12-21-2023 10:26-0400 Systolic blood pressure 114 mm[Hg] Kilo Duncan MD Work Phone: [facility] 11-08-2023 10:03-0400 Body mass index (BMI) [Ratio] 30.1 kg/m2 Cassandra LEUNG Work Phone: [facility] 11-08-2023 10:03-0400 Body weight 95.17 kg Cassandra LEUNG Work Phone: [facility] 11-08-2023 10:03-0400 Diastolic blood pressure 70 mm[Hg] Cassandra LEUNG Work Phone: [facility] [employer] [facility] 11-08-2023 10:03-0400 Systolic blood pressure 116 mm[Hg] Cassandra LEUNG Work Phone: [facility] [facility] 07-22-2020 14:59-0400 Body height 177.8 cm Milo Potter MD Work Phone: [employer] Work Phone: 07-22-2020 14:59-0400 Body mass index (BMI) [Ratio] 25.83 kg/m2 Milo Potter MD Work Phone: [employer] Work Phone: 07-22-2020 14:59-0400 Body temperature 99.1 [degF] Milo Potter MD Work Phone: [employer] Work Phone: 07-22-2020 14:59-0400 Body weight 81.65 kg Milo Potter MD Work Phone: [employer] Work Phone: 07-22-2020 14:59-0400 Diastolic blood pressure 55 mm[Hg] Milo Potter MD Work Phone: [employer] Work Phone: 07-22-2020 14:59-0400 Heart rate 113 /min Milo Potter MD Work Phone: [employer] Work Phone: 07-22-2020 14:59-0400 Respiratory rate 18 /min Milo Potter MD Work Phone: [employer] Work Phone: 07-22-2020 14:59-0400 SaO2% (BldA) [Mass fraction] 100 % Milo Potter MD Work Phone: [employer] Work Phone: 07-22-2020 14:59-0400 Systolic blood pressure 146 mm[Hg] Milo Potter MD Work Phone: [employer] Work Phone: Encounters Encounter Date Encounter Type Care Provider Facility Start: 12-21-2023 End: 12-21-2023 Bamboo flowsheet Kilo Duncan MD Work Phone: [facility] Start: 12-21-2023 End: 12-21-2023 Bamboo flowsheet Kilo Duncan MD Work Phone: [facility] Start: 12-21-2023 End: 12-21-2023 [facility] Result Encounter Kilo Duncan MD Work Phone: [facility] Unsolicited Start: 12-21-2023 End: 12-21-2023 Patient encounter procedure Kilo Duncan MD Work Phone: [facility] Work Phone: Start: 12-21-2023 End: 12-21-2023 Periodic preventive med est patient 18-39 yrs Kilo Duncan MD Work Phone: [facility] Comment on above: Annual physical exam (Primary Dx) Start: 12-21-2023 End: 12-21-2023 ambulatory KILO DUNCAN Not Available Start: 11-08-2023 End: 11-08-2023 Bamboo flowsheet Cassandra LEUNG Work Phone: [facility] Start: 11-08-2023 End: 11-08-2023 Bamboo flowsheet Cassandra LEUNG Work Phone: [facility] Start: 11-08-2023 End: 11-08-2023 Postop follow up visit related to original px Cassandra LEUNG Work Phone: [facility] Comment on above: Postop check Start: 11-08-2023 End: 11-08-2023 ambulatory CASSANDRA CASTILLO Not Available Start: 10-04-2023 End: 10-04-2023 ambulatory CASSANDRA CASTILLO Not Available Start: 09-27-2023 End: 09-27-2023 ambulatory [facility] Work Phone: Start: 09-27-2023 End: 09-27-2023 Departed Referred DO Neil Lizzy Work Phone: [facility] Start: 09-04-2023 End: 09-04-2023 Departed Referred Neil Lizzy Work Phone: [facility] Start: 09-04-2023 End: 09-04-2023 ambulatory Neil Lizzy [facility] Work Phone: Start: 07-24-2023 End: 07-24-2023 ambulatory NEIL LIZZY Not Available Start: 05-09-2023 End: 05-09-2023 ambulatory NEIL LIZZY Not Available Start: 04-18-2023 Chart abstracting Neil Lizzy DO Work Phone: [facility] Start: 01-01-2023 End: 01-01-[address] [facility] Start: 01-01-2023 End: 01-01-2023 Postop follow up visit related to original px Bryon Drisocll MD Work Phone: [facility] Comment on above: Sprain of left ankle , unspecified ligament, initial encounter (Primary Dx) Start: 07-28-2022 End: 07-28-[address] NEIL BALL . Facility:[facility] Start: 07-22-2022 Encounter for preprocedural cardiovascular examination DR NIEL BALL . [facility] Start: 07-19-2022 End: 07-20-2022 ambulatory BEREKET NAVARRETE Facility:[facility] Start: 07-19-2022 End: 07-20-2022 Encounter for preprocedural cardiovascular examination BEREKET NAVARRETE Facility:[facility] Start: 05-04-2022 End: 05-04-[address] NEIL BALL . Facility:[facility] Start: 07-22-2020 End: 07-22-2020 Emergency department patient visit MILO POTTER [facility] Start: 07-22-2020 End: 07-22-2020 Emergency department patient visit Milo Potter MD Work Phone: [facility] Comment on above: Sprain of left ankle , unspecified ligament, initial encounter (Primary Dx); Accidental fall, initial encounter Start: 03-02-2016 End: 03-03-2016 Ambulatory PROVIDER UNKNOWN Facility:[facility] [[email or web address] Procedures Date Procedure Procedure Detail Performing Clinician Start: 12-21-2023 MLR HEMOGLOBIN A1C Kilo Duncan MD Work Phone: Start: 05-04-2022 Microscopic observat ion [Identifier] in Cervix by Cyto stain Neil Lizzycammie VAUGHN Work Phone: Start: 07-22-2020 End: 07-22-2020 Radex ankle complete minimum 3 views Milo Potter MD Work Phone: Plan of Treatment Date Care Activity Detail Author Start: 01-31-2036 Zoster Vaccines (1 o f 2) Zoster Vaccines (1 of 2) [facility] Start: 05-04-2027 Screening for malign ant neoplasm of cervix [facility] Start: 12-21-2023 End: 12-20-2024 Basic metabolic 1998 panel - Serum or Plasma Basic metabolic panel Lab Routine Annual physical exam Expected: 12/21/2023 (Approximate), Expires: 12/20/2024 [facility] Comment on above: Expected: 12/21/2023 (Approximate), Expires: 12/20/2024 Start: 12-21-2023 End: 12-20-2024 CBC W Auto Differential panel - Blood CBC and differential Lab Routine Annual physical exam Expected: 12/21/2023 (Approximate), Expires: 12/20/2024 [facility] Comment on above: Expected: 12/21/2023 (Approximate), Expires: 12/20/2024 Start: 12-21-2023 End: 12-20-2024 Hemoglobin A1c/Hemoglobin.total in Blood Hemoglobin A1c Lab Routine Annual physical exam Expected: 12/21/2023 (Approximate), Expires: 12/20/2024 [facility] Work Phone: Comment on above: Expected: 12/21/2023 (Approximate), Expires: 12/20/2024 Start: 12-21-2023 End: 12-20-2024 Hepatic function 2000 panel - Serum or Plasma Hepatic function panel Lab Routine Annual physical exam Expected: 12/21/2023 (Approximate), Expires: 12/20/2024 [facility] Comment on above: Expected: 12/21/2023 (Approximate), Expires: 12/20/2024 Start: 12-21-2023 End: 12-20-2024 Lipid 1996 panel - Serum or Plasma Lipid panel Lab Routine Annual physical exam Expected: 12/21/2023 (Approximate), Expires: 12/20/2024 [facility] Comment on above: Expected: 12/21/2023 (Approximate), Expires: 12/20/2024 Start: 12-21-2023 End: 12-20-2024 Thyrotropin [Units/volume] in Serum or Plasma TSH Lab Routine Annual physical exam Expected: 12/21/2023 (Approximate), Expires: 12/20/2024 [facility] Comment on above: Expected: 12/21/2023 (Approximate), Expires: 12/20/2024 Start: 12-21-2023 End: 12-21-2023 Patient encounter procedure 12/21/2023 10:15 AM EDT Office Visit [facility] [address] [place] [address] Kilo Duncan MD [address] [place] [address] Arrived [facility] Comment on above: Arrived Start: 11-11-2023 Influenza vaccination Influenza Vacc ine (#1) [facility] Start: 11-08-2023 End: 11-08-2023 Patient encounter procedure 11/08/2023 9:30 AM EDT Office Visit [facility] [address] [facility] [place] [address] Cassandra Castillo PA [address] [place], [place] [id number] Arrived [facility] Comment on above: Arrived Start: 05-09-2023 End: 05-09-2023 Patient encounter procedure 05/09/2023 1:50 PM EST Office Visit [facility] [address] [place] [address] Neil Ball DO [address] [place] [address] [facility] Start: 11-10-2022 Influenza vaccination Influenza Vacc ine (#1) [facility] Start: 11-10-2020 Influenza vaccination Flu vacc ine (Season Ended) [email or web address] Phone: Start: 01-31-2008 DTaP/Tdap/Td Vaccine s (1 - Tdap) DTaP/Tdap/Td Vaccines (1 - Tdap) [facility] Start: 2007 Screening for malign ant neoplasm of cervix [facility] Start: 2005 DTaP/Tdap/Td vaccine (1 - Tdap) DTaP/Tdap/Td vaccine (1 - Tdap) [email or web address] Phone: Start: 01-31-2004 Diabetes mellitus screening Diabetes Screening [facility] Start: 01-31-2004 Hepatitis C screening Hepatitis C Sc reening [facility] Start: 2001 HIV screening HIV screen Domitila [facility] Work Phone: Start: 1998 COVID-19 Vaccine (1) COVID-19 Vaccin e (1) [email or web address] Phone: Start: 1987 MMR Vaccines (1 of 1 - Standard series) MMR Vaccines (1 of 1 - Standard series) [facility] Start: 1987 Varicella vaccination Varicell a Vaccines (1 of 2 - 2-dose childhood series) [facility] Start: 1987 Varicella vaccine (1 of 2 - 2-dose childhood series) Varicella vaccine (1 of 2 - 2-dose childhood series) [email or web address] Phone: Start: 1986 COVID-19 Vaccine (#1) COVID-19 Vacci ne (#1) [facility] Start: 1986 Hepatitis B Vaccines (1 of 3 - 3-dose series) Hepatitis B Vaccines (1 of 3 - 3-dose series) [facility] Start: 1986 Hepatitis C screening Hepatitis C nm raza [facility] Work Phone: Start: 1986 HIV screening HIV Screening [facility] Start: 1986 Lipid panel Lipid Panel [facility] Start: 1986 Yearly Adult Physical Yearly Adult P hysical [facility] Immunizations Immunization Date Immunization Notes Care Provider Fa cili 02-16-2016 influenza virus vaccine, unspecified formulation Bryon Driscoll MD Work Phone: [facility] Work Phone: Payers Date Payer Category Payer Self-pay 2021 Private Health Insurance CYDNEY SHELTON [id number] 2021-Present [address] [place] [address] [id number] 2021 Private Health Insurance [id number] 2020 Unknown [id number] 2020 Unknown [place] [employer] [id number] 2020-Present [address] [place] [address] [id number] 1986 Unknown [id number]. [id number] 1986 Unknown [id number] [id number]. 2.593 1986 Unknown [id number] [id number]. 2.593 1986 Unknown [id number] [id number]. 2.1244 1986 Unknown [id number] [id number]. 2.1259 1986 Unknown [id number] [id number]. 2.9 1986 Unknown [id number] [id number]. 2.9 1986 Unknown [id number] [id number]. 2.9 1986 Unknown [id number] [id number]. 2.9 1986 Unknown [id number] [id number]. 2.1259 1959 Private Health Insurance [id number] Unknown [id number] Unknown [id number]. 2.531 Unknown [id number]. 2.531 Social History Date Type Detail Facility Start: 07-22-2020 Tobacco smoking stat [facility] Current every day smoker [email or web address] Phone: History of tobacco use Cigarette Smoker [facility] Start: 07-22-2020 End: 04-18-2023 Cigarettes smoked current (pack per day) - Reported [facility] Start: 07-22-2020 End: 12-21-2023 Tobacco use and exposure Never used [employer] Start: 1986 Sex Assigned At Not on file [employer] Phone: Start: 12-22-2022 End: 01-01-2023 Exposure to SARS-CoV-2 (event) Not sure [employer] Tobacco smoking stat [facility] Tobacco smoking consumption unknown [facility] Work Phone: Start: 04-18-2023 End: 12-14-2023 Gender identity Not on file [facility] Start: 04-18-2023 End: 12-21-2023 Tobacco smoking status IDIS Never smoked tobacco [facility] Start: 04-18-2023 End: 11-08-2023 Alcohol intake Lifetime non-drinker (finding) [facility] Start: 1985 Sex Assigned At Female F [facility] How often do you nee d to have someone help you when you read instructions, pamphlets, or other written material from your doctor or pharmacy [SILS] Never [facility] Are you now , , , , never or living with a partner? [facility] How often to you hav e a drink containing alcohol? Monthly or less [facility] Do you feel stress - tense, restless, nervous, or anxious, or unable to sleep at night because your mind is troubled all the time - these days [OSQ] Not at all [facility] In the past 12 month s, was there a time when you were not able to pay the mortgage or rent on time? No [facility] Clinical Notes 07-19-2022 to 12-21-2023 Kilo Duncan MD - 12/21/2023 11:15 AM Ata Duncan MD - 12/21/2023 10:15 AM XOCHITL Valadez - 11/08/2023 9:30 AM Amber Driscoll MD - 01/01/2023 2:40 PM EDT Note Date & Type Note Facility 12-21-2023 History of Present illness Narrative Associated Problem(s): Annual physical exam Due for labs. Discussed proper diet and regular aerobic exercise. Need aerobic exercise 5-6 days a week for 30 minutes at a time. Smaller portions and limit total calories. Colonoscopy after age 45. Tetanus every 10 years. Advised not to smoke. Images from the original note were not included. Subjective Patient ID: Jennifer Ca is a 38 y.o. female who presents for Follow-up (Follow up). Presents for annual PE. Last seen August 2021. Patient feels well today. Weight up 5 pounds since last visit. Active at work but no regular exercise or activity at home. Tries to watch diet and eat healthy. Increased fruits and vegetables. Smaller portions and limits snacking. Tries to limit total daily calories. Due for labs. Review of Systems Respiratory: Negative for cough, shortness of breath and wheezing. Cardiovascular: Negative for chest pain and palpitations. Gastrointestinal: Negative for abdominal pain, diarrhea, nausea and vomiting. Genitourinary: Negative for dysuria. Objective Physical Exam Constitutional: General: She is not in acute distress. Appearance: Normal appearance. HENT: Head: Normocephalic. Right Ear: Tympanic membrane normal. Left Ear: Tympanic membrane normal. Eyes: Extraocular Movements: Extraocular movements intact. Pupils: Pupils are equal, round, and reactive to light. Cardiovascular: Rate and Rhythm: Normal rate and regular rhythm. Heart sounds: No murmur heard. No friction rub. No gallop. Pulmonary: Effort: Pulmonary effort is normal. Breath sounds: Normal breath sounds. No wheezing, rhonchi or rales. Abdominal: General: Bowel sounds are normal. There is no distension. Palpations: Abdomen is soft. Tenderness: There is no abdominal tenderness. There is no guarding or rebound. Musculoskeletal: General: No swelling or tenderness. Cervical back: Neck supple. Right lower leg: No edema. Left lower leg: No edema. Skin: Findings: No erythema or rash. Neurological: General: No focal deficit present. Mental Status: She is alert and oriented to person, place, and time. Cranial Nerves: No cranial nerve deficit. Motor: No weakness. Gait: Gait normal. Assessment/Plan Problem List Items Addressed This Visit Annual physical exam - Primary Due for labs. Discussed proper diet and regular aerobic exercise. Need aerobic exercise 5-6 days a week for 30 minutes at a time. Smaller portions and limit total calories. Colonoscopy after age 45. Tetanus every 10 years. Advised not to smoke. Relevant Orders Hemoglobin A1c Basic metabolic panel CBC and differential Hepatic function panel Lipid panel TSH documented in this encounter [facility] 11-08-2023 History of Present illness Narrative Reason for Appointment: Patient ID: Jennifer Ca is a 38 y.o. female who presents for Post-op Visit Patient presents today for [address] [facility] Post Op Follow Up appointment. MEDICATIONS Current Outpatient Medications Medication Instructions acyclovir (Zovirax) 5 % cream cyclobenzaprine (Flexeril) 10 MG tablet diazePAM (Valium) 5 MG tablet Take 1 tablet by oral route. doxycycline (VIBRAMYCIN) 100 mg, Oral, 2 times daily ibuprofen 800 MG tablet meloxicam (Mobic) 7.5 MG tablet metFORMIN, MOD, (Glumetza) 500 MG 24 hr tablet Take 1 tablet 3 times a day by oral route. nabumetone (Relafen) 500 MG tablet Take 1 tablet twice a day by oral route. tiZANidine (Zanaflex) 4 MG tablet Take 1 tablet 3 times a day by oral route. valACYclovir (Valtrex) 500 MG tablet valacyclovir 500 mg tablet varenicline (Chantix) 0.5 MG tablet Chantix ALLERGIES Allergies Allergen Reactions Desonide PROBLEMS Active Ambulatory Problems Diagnosis Date Noted No Active Ambulatory Problems Resolved Ambulatory Problems Diagnosis Date Noted No Resolved Ambulatory Problems Past Medical History: Diagnosis Date Abscess of left genital labia Anxiety Cervical disc herniation Herpes Menorrhagia Migraine (CMS/HCC) Pelvic pain Tobacco user HISTORY PAST MEDICAL HISTORY SOCIAL HISTORY Past Medical History: Diagnosis Date Abscess of left genital labia Anxiety Cervical disc herniation Herpes Menorrhagia Migraine (CMS/HCC) chronic Pelvic pain Tobacco user Social History Tobacco Use Smoking status: Never Smokeless tobacco: Not on file Substance Use Topics Alcohol use: Never Drug use: Never FAMILY HISTORY Family History Problem Relation Name Age of Onset Diabetes Mother Breast cancer Other Grandmother SURGICAL HISTORY Past Surgical History: Procedure Laterality Date CERVICAL DISC SURGERY CHOLECYSTECTOMY ROBOTIC ASSISTED HYSTERECTOMY 09/27/2023 robotic Da Vanici SALPINGECTOMY Bilateral 07/28/2022 REVIEW OF SYSTEMS Review of Systems: Review of Systems Constitutional: Negative. HENT: Negative. Eyes: Negative. Respiratory: Negative. Cardiovascular: Negative. Gastrointestinal: Negative. Genitourinary: Negative. Musculoskeletal: Negative. Skin: Negative. Neurological: Negative. All other systems reviewed and are negative. Hematological: Negative. Endocrine: Negative. Allergic/Immunologic: Negative. OBJECTIVE Objective: Physical Exam Constitutional: Appearance: Normal appearance. Genitourinary: Perineal sutures intact. Cervix is absent. Uterus is absent. Breasts: Breasts are soft. Right: Normal. Left: Normal. HENT: Head: Normocephalic. Nose: Nose normal. Mouth/Throat: Mouth: Mucous membranes are moist. Cardiovascular: Rate and Rhythm: Normal rate. Pulmonary: Effort: Pulmonary effort is normal. Abdominal: General: Bowel sounds are normal. Palpations: Abdomen is soft. Musculoskeletal: General: Normal range of motion. Cervical back: Normal range of motion. Neurological: General: No focal deficit present. Mental Status: She is alert. Skin: General: Skin is warm and dry. Psychiatric: Mood and Affect: Mood normal. Vitals and nursing note reviewed. Exam conducted with a industrial commercial groundskeeper present. Vitals: Estimated body mass index is 30.1 kg/m as calculated from the following: Height as of 07/11/22: 5' 10 . Weight as of this encounter: 209 lb 12.8 oz. BP: 116/70 No LMP recorded (lmp unknown). Patient has had a hysterectomy. ASSESSMENT & PLAN ICD-10-CM 1. Postop check Z09 .Post Op Follow Up: Patient presents today for a 6 week postop check following a Da Catherine assisted Laparoscopic Hysterectomy. Surgery execution and pathology results were discussed in great detail with the patient. Pelvic exam was performed and vaginal cuff was noted as healing well. Patient has been instructed to sustain from sexual intercourse for one more week. All other restrictions have otherwise been lifted. Follow Up: Patient is to return in 1 year for annual exam unless needed otherwise. Documented by Tina Melendez LPN on behalf of: XOCHITL Arteaga documented in this encounter [facility] 01-01-2023 History of Present illness Narrative Report documented in this encounter [facility] Work Phone: 07-28-2022 Note OPERATIVE NOTE OPERATION DATE: 07/28/2022 PROCEDURE: Hysteroscopy with robotic assisted laparoscopic salpingectomy. PREOPERATIVE DIAGNOSIS: Menorrhagia, dysmenorrhea, pelvis pain. POSTOPERATIVE DIAGNOSIS: Menorrhagia, dysmenorrhea, pelvis pain. ANESTHESIA: General. SURGEON: Neil Ball D.O. DIGITAL ADVISOR: AMERICA Holcomb URINE OUTPUT: Yellow and clear. [...] and needle counts were correct x2. [facility] 07-19-2022 Note PROCEDURE: XR CHEST 2 V [...] by: EHSAN ARREDONDO Date: 2022-07-19 09:39 [facility] Evaluation note Diagnosis Sprain of left ankle, unspecified ligament, initial encounter- Primary Accidental fall, initial encounter documented in this encounter [facility] [employer] Work Phone: evaluation note* Diagnosis Sprain of left ankle, unspecified ligament, initial encounter- Primary documented in this encounter [facility] Work Phone: Evaluation noteNo assessment information available [facility] Work Phone: Evaluation note* Diagnosis Annual physical exam- Primary Routine general medical examination at a health care facility [facility] Diagnosis Postop check Follow-up examination, following unspecified surgery [facility]* Attachments The following attachments cannot be sent through Care Everywhere. * Ankle Sprain (Malay) * RICE: General Info (Malay) [facility] Work Phone: Summary Purpose Family History No [...] and content) DATE CREATED AUTHOR 09/07/2017 [facility] DATE CREATED AUTHOR AUTHOR'S ORGANIZ ATION 07/24/2020 [facility] DATE CREATED AUTHOR AUTHOR'S ORGANIZ ATION 08/18/2022 [facility] DATE CREATED AUTHOR AUTHOR'S ORGANIZ ATION 01/04/2023 [facility] DATE CREATED AUTHOR AUTHOR'S ORGANIZ ATION 10/05/2023 [facility] DATE CREATED AUTHOR AUTHOR'S ORGANIZ ATION 12/23/2023 [facility] EPIC Reason for Visit (unrecogniz ed section and content) Reason Comments Ankle Pain left ankle pain, 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 Reason Comments Follow-up Follow up Reason Comments Post-op Visit Care Teams (unrecognized sec tion and content) Machine Strap Buckler Relationship Specialty Start Date End Date Kilo Duncan MD PCP - General Cardiology 08/03/22 Team Status: Inactive Member Role Status Dates Neil Ball Attending Provider Active Start: Alondra 2023 End: September 04, 2023 Team Status: Inactive Member Role Status Dates Neil Ball DO Attending Provider Active Start : September 04, 2023 End: September 04, 2023 Team Status: Inactive Member Role Status Dates Neil Ball DO Attending Provider Active Start : September 27, 2023 End: September 27, 2023 [employer] Relationship Specialty Start Date End Date Kilo Duncan MD [address] [place] [phone] PCP - General Family Medicine 09/04/23 Machine [employer] Buckler Relationship Specialty Start Date End Date Kilo Duncan MD [address] [place] [address] PCP - General Family Medicine 09/04/23 Machine Strap Buckler Relationship Specialty Start Date End Date Kilo Duncan MD [address] [place] [address] PCP - General Family Medicine 09/04/23 Machine Strap Buckler Relationship Specialty Start Date End Date Kilo Duncan MD [address] [place] [phone] PCP - General Family Medicine 09/04/23 Goals (unrecognized section and content) Goals may be documented in a n alternate sectionGoals may be documented in an alternate section FOR RECORDS PERTAINING TO PATIENTS [...] BE BASED ON THE PRIMARY CLINICAL RECORDS. [facility]. provides no warranty or guarantee of the accuracy or completeness of information in this document.
[2024-03-08] MEDS: 0.9 % SODIUM CHLORIDE 1,000 ML 1000 ML IV (00:17)
[2024-03-08] MEDS: ONDANSETRON PF 4 MG/2 ML VIAL IV (00:17)
[2024-03-08 00:22] LABS: Basophils Absolute Auto 0.1 10^3/uL (0.0-0.1); Basophils Percent Auto 0.9 % (0.2-2.0); Eosinophils Absolute Auto 0.1 10^3/uL (0.0-0.7); Eosinophils Percent Auto 0.8 % (0.9-7.0); Hematocrit 45.8 % (36.0-48.0); Hemoglobin 15.3 g/dL (12.0-16.0); Immature Granulocytes Abs Auto 0.07 10^3/uL (0.00-0.03); Immature Granulocytes Pct Auto 0.4 % (0.0-0.5); Lymphocytes Absolute Auto 0.9 10^3/uL (1.2-3.8); Lymphocytes Percent Auto 5.4 % (20.5-60.0); Mean Corpuscular HGB Conc 33.4 g/dL (29.9-35.2); Mean Corpuscular Hemoglobin 28.8 pg (26.7-34.0); Mean Corpuscular Volume 86.1 fL (81.0-99.0); Mean Platelet Volume 10.2 fL (9.5-13.5); Monocytes Absolute Auto 0.9 10^3/uL (0.3-0.8); Monocytes Percent Auto 5.2 % (1.7-12.0); Neutrophils Absolute Auto 14.3 10^3/uL (1.4-6.5); Neutrophils Percent Auto 87.3 % (43.0-75.0); Platelet Count 369 10^3/uL (150-450); Red Blood Count 5.32 10^6/uL (4.20-5.40); Red Cell Distribution Width 11.7 % (11.0-15.0); White Blood Count 16.4 10^3/uL (4.0-11.0)
[2024-03-08 00:35] LABS: Anion Gap 10.7; BUN Creatinine Ratio 15.7; Calcium 8.9 mg/dL (8.5-10.1); Carbon Dioxide 28.9 mmol/L (21.0-32.0); Chloride 105 mmol/L (98-107); Estimated GFR (African America >60 (>=60 mL/min/1.73m^2); Estimated GFR (Non-African Ame >60 (>=60 mL/min/1.73m^2); Glucose 123 mg/dL (74-106); Potassium 3.6 mmol/L (3.5-5.1); Sodium 141 mmol/L (136-145)
== END 2024-03-08 01:42 | disposition home or self-care (01) ==
PROVIDERS: Emergency Provider Emergency Medicine; PCP Family Medicine
DX: R11.2 Nausea with vomiting, unspecified (principal); Z90.49 Acquired absence of other specified parts of digestive tract; Z90.79 Acquired absence of other genital organ(s); F17.290 Nicotine dependence, other tobacco product, uncomplicated
CPT/HCPCS: 36415; 80048; 85025; 96361; 96374; 99284; J2405

== ENCOUNTER 2024-08-14 07:33 | Outpatient (OUT) | payer OTHER, SELFPAY ==
--- OUTSIDE RECORDS SUMMARY | 2024-08-13 07:30 | XMS_ITS | Encounter Summary ---
Author Organization [facility] Address [address] [place] [address] Care Team Providers Care Weapons Mechanic Name Role Phone Kilo Levi MD Primary Care Provider [phone] Reason for Referral * Medications - Denied Specialty Diagnoses / Procedures Referred By Owen bradley Referred To Contact Diagnoses Class 1 obesity due to excess calories without serious comorbidity with body mass index (BMI) of 30.0 to 30.9 in adult Kilo Levi MD [address] [place] [address] Phone: tel: fax: Referral ID Status Reason Start Date Expiration Date Visits Re quested Visits Authorized [id number] Denied 1 1 Reason for Visit * Reason Comments Weight Loss Encounter Details Date Type Department Care Team (Late st Contact Info) Description 08/13/2024 7:30 AM EDT Office Visit [facility] [address] [place] [phone] Kilo Levi MD [address] [place] [address] Migraine without aura and without status migrainosus, not intractable (CMS/HCC) (Primary Dx); Polyuria; Class 1 obesity due to excess calories without serious comorbidity with body mass index (BMI) of 30.0 to 30.9 in adult; PCOS (polycystic ovarian syndrome); Fatigue, unspecified type Social History Tobacco Use Types Packs/Day Years Used Date Smoking Tobacco: Never Smokeless Tobacco: Never Alcohol Use Standard Drinks/Week Comments Never 0 (1 standard drink = 0.6 oz pur e alcohol) B1300 Health Literacy Answer Date Recor ded How often do you need to hav e someone help you when you read instructions, pamphlets, or other written material from your doctor or pharmacy? Never 12/14/2023 Social Connection and Isolation Panel [NHANES] A nswer Date Recorded In a typical week, how many times do you talk on the phone with family, friends, or neighbors? Three times a week 12/14/2023 How often do you get togethe r with friends or relatives? Once a week 12/14/2023 How often do you attend chur ch or yazidi services? Patient declined 12/14/2023 Do you belong to any clubs o r organizations such as anglican groups, unions, fraternal or athletic groups, or school groups? Patient declined 12/14/2023 How often do you attend meet ings of the clubs or organizations you belong to? Patient declined 12/14/2023 Are you , , di vorced, , never , or living with a partner? 12/14/2023 AUDIT-C Answer Date Recorded Q1: How often do you have a drink containing alc ohol? Monthly or less 12/14/2023 Q2: How many drinks containi ng alcohol do you have on a typical day when you are drinking? Patient declined 12/14/2023 Q3: How often do you have si x or more drinks on one occasion? Patient declined 12/14/2023 Overall Financial Resource Strain (CARDIA) Answe r Date Recorded How hard is it for you to pa y for the very basics like food, housing, medical care, and heating? Not hard at all 12/14/2023 [facility] Occupat ional Health - Occupational Stress Questionnaire Answer Date Recorded Do you feel stress - tense, restless, nervous, or anxious, or unable to sleep at night because your mind is troubled all the time - these days? Not at all 12/14/2023 Exercise Vital Sign Answer Date Recorde d On average, how many days pe r week do you engage in moderate to strenuous exercise (like a brisk walk)? 5 days 12/14/2023 On average, how many minutes do you engage in exercise at this level? 70 min 12/14/2023 Hunger Vital Sign Answer Date Recorded Within the past 12 months, y ou worried that your food would run out before you got the money to buy more. Patient declined Within the past 12 months, t he food you bought just didn't last and you didn't have money to get more. Patient declined 06/2023 PRAPARE - Transportation Answer Date Re corded In the past 12 months, has l ack of transportation kept you from medical appointments or from getting medications? No 06/2023 In the past 12 months, has l ack of transportation kept you from meetings, work, or from getting things needed for daily living? No 12/14/2023 Housing Stability Vital Sign Answer Matt e Recorded In the last 12 months, was t here a time when you were not able to pay the mortgage or rent on time? No 12/14/2023 In the past 12 months, how m any times have you moved where you were living? 0 12/14/2023 At any time in the past [address] [facility], were you homeless or living in a prison (including now)? No 12/14/2023 Comments No Sex and Gender Information Value Date Recorded Sex Assigned at Not on file Legal Sex Female 11:47 PM EDT Gender Identity Not on file Sexual Orientation Not on file documented as of this encounter Last Filed Vital Signs Vital Sign Reading Time Taken Comments Blood Pressure 136/82 08/13/2024 7:33 AM EDT Pulse 89 08/13/2024 7:33 AM EDT Temperature 36.6 C (97.8 F) 08/13/2024 7:33 AM EDT Respiratory Rate 22 08/13/2024 7:33 AM EDT Oxygen Saturation 98% 08/13/2024 7:33 AM EDT Inhaled Oxygen Concentration - - Weight 93.9 kg (207 lb) 08/13/2024 7:33 AM EDT Height 175.3 cm (5' 9 ) 08/13/2024 7:33 AM EDT Body Mass Index 30.57 08/13/2024 7:33 AM EDT documented in this encounter Progress Notes * Kilo Levi MD - 08/13/2024 8:06 AM EDTAssociated Problem(s): PCOS (polycystic ovarian syndrome) Check labs. Did not tolerate metformin due to diarrhea. May try moujaro. * Kilo Levi MD - 08/13/2024 8:05 AM EDTAssociated Problem(s): Migraine without aura and without status migrainosus, not intractable (CMS/HCC) JOSÉ stable and use OTC PRN. * Kilo Levi MD - 08/13/2024 8:04 AM EDTAssociated Problem(s): Class 1 obesity due to excess calories without serious comorbidity with bodymass index (BMI) of 30.0 to 30.9 in adult Patient overweight and difficult time losing weight. Discussed proper diet and regular aerobic exercise. Recommend Weight Watchers and need to limit calories and smaller portions. Need to increase activity and regular aerobic exercise several days a week for 30 minutes at a time. Interested in adipex and warned of potential cardiac side effects. Script written for first month and will need to recheck weight in 1 month. OARRS reviewed. Continue medications as prescribed. * Kilo Levi MD - 08/13/2024 7:30 AM EDT Images from the original note were not included. Subjective Patient ID: Jennifer Ca is a 39 y.o. female who presents for Weight Loss. Follow up migraines and concerned of weight gain. Migraines stable and JOSÉ few times a month. Throbbing pain in entire head associated with photophobia, phonophobia and nausea. Using OTC PRN and helpswhen needed. Recent weight gain and lost but now stuck. Weight up 4 pounds since fall. Very active at work and walks all day but no regular exercise. Tries to watch diet and eat healthy. Increased fruits and vegetables. Smaller portions and limits snacking. Tries to limit total daily calories. History of PCOS and worsening hirsutism. Prior metformin caused diarrhea. Review of Systems Respiratory: Negative for cough, [...] There is no guarding or rebound. Musculoskeletal: Cervical back: Neck supple. Right lower leg: No edema. Left lower leg: No edema. Neurological: Mental Status: She is alert. Assessment/Plan Problem List Items Addressed This Visit Migraine without aura and without status migrainosus, not intractable (CMS/HCC) - Primary JOSÉ stable and use OTC PRN. Class 1 obesity due to excess calories without serious comorbidity with body mass index (BMI) of 30.0 to 30.9 in adult Patient overweight and difficult time losing weight. Discussed proper diet and regular aerobic exercise. Recommend Weight Watchers and need to limit calories and smaller portions. Need to increase activity and regular aerobic exercise several days a week for 30 minutes at a time. Interested in adipex and warned of potential cardiac side effects. Script written for first month and will need to recheck weight in 1 month. OARRS reviewed. Continue medications as prescribed. Relevant Medications phentermine (Adipex-P) 37.5 MG tablet Other Relevant Orders Hemoglobin A1c Polyuria Relevant Orders Basic metabolic panel PCOS (polycystic ovarian syndrome) Check labs. Did not tolerate metformin due to diarrhea. May try moujaro. Relevant Orders Insulin, fasting Other Visit Diagnoses Fatigue, unspecified type Relevant Orders CBC and differential TSH T4, free documented in this encounter Plan of Treatment Upcoming Encounters Date Type Department Care Team (Late st Contact Info) Description 09/24/2024 7:45 AM EDT [facility] Visit [facility] [address] [place] [address] Kilo Levi MD [address] [place] [phone] Scheduled Orders Name Type Priority Associated Diagnoses Orde r Schedule Basic metabolic panel Lab Routine Polyuria Expected: 08/13/2024 (Approximate), Expires: 08/13/2025 Hemoglobin A1c Lab Routine Class 1 obesity due to excess calories without serious comorbidity with body mass index (BMI) of 30.0 to 30.9 in adult Expected: 08/13/2024 (Approximate), Expires: 08/13/2025 Insulin, fasting Lab Routine PCOS (polycystic ovarian syndrome) Expected: 08/13/2024 (Approximate), Expires: 08/13/2025 CBC and differential Lab Routine Fatigue, unspecified type Expected: 08/13/2024 (Approximate), Expires: 08/13/2025 TSH Lab Routine Fatigue, unspecified type Expected: 08/13/2024 (Approximate), Expires: 08/13/2025 T4, free Lab Routine Fatigue, unspecified type Expected: 08/13/2024 (Approximate), Expires: 08/13/2025 documented as of this encounter Visit Diagnoses Diagnosis Migraine without aura and without status migrainosus, not intractable (CMS/HCC)- Primary Polyuria Class 1 obesity due to excess calories without serious comorbidity with body mass index (BMI) of 30.0 to 30.9 in adult PCOS (polycystic ovarian syndrome) Polycystic ovaries Fatigue, unspecified type documented in this encounter Care Teams Weapons Mechanic Relationship Specialty Start Date End Date Kilo Levi MD [address] [place] [phone] PCP - General Family Medicine 09/04/23 documented as of this encounter
--- OUTSIDE RECORDS SUMMARY | 2024-08-14 07:38 | XMS_ITS | Encounter Summary ---
Author Organization [facility] Address [address] [place] [address] Care Team Providers Care Foot Roentgenologist Name Role Phone Kilo Levi MD Primary Care Provider [phone] Encounter Details Date Type Department Care Team (Late Contact Info) Description 09/21/2023 Clinisync Result Encounter [facility] External Department Unsolicited Provider, Generic External Data Social History Tobacco Use Types Packs/Day Years Used Date Smoking Tobacco: Never Alcohol Use Standard Drinks/Week Comments Never 0 (1 standard drink = 0.6 oz pur e alcohol) Comments No Sex and Gender Information Value Date Recorded Sex Assigned at Not on file Legal Sex Female 11:47 PM EDT Gender Identity Not on file Sexual Orientation Not on file documented as of this encounter Plan of Treatment Upcoming Encounters Date Type Department Care Team (Late Contact Info) Description 09/24/2024 7:45 AM EDT Office Visit [facility] [address] [place] [address] Kilo Levi MD [address] [place] [phone] documented as of this encounter Procedures Procedure Name Priority Date/Time Associated Diagnosis Comments XR CHEST 2V 09/21/2023 7:35 AM EDT documented in this encounter Results * XR CHEST 2V (09/21/2023 7:35 AM EDT) Anatomical Region Laterality Modality Other 09/21/2023 7:35 AM EDT Narrative 09/21/2023 7:38 AM EDT [facility] [place] [id number] XRay Report Signed Patient: OTONIEL RIVAS MR#: [id number] : 1985 Acct:[id number] Age/Sex: 38 / F ADM Date: 09/20/23 Loc: PST Attending Dr: Neil Ball D.O. Ordering Physician: Neil Ball D.O. Date of Service: 09/20/23 Procedure(s): XR chest 2V Accession Number(s): [id number] cc: Neil Ball D.O.; Kilo Levi M.D. [facility] [place] [address] Patient Name: OTONIEL RIVAS MRN: [id number] date: 1985 Sex: F Assigned Patient Location: [facility] Current Patient Location: [facility] Accession/Order Number: [id number] Exam Date: 09/20/2023 11:35 Report Date: 09/21/2023 07:35 At the request of: NEIL BALL Procedure: XR chest 2V EXAMINATION: XR chest 2V HISTORY: Preop exam COMPARISON: No relevant comparison available. TECHNIQUE: PA and lateral FINDINGS: LUNGS: No significant pulmonary parenchymal abnormalities. VASCULATURE: No increased pulmonary vasculature. PLEURA: No pneumothorax, effusion, or pleural thickening. CARDIAC: No cardiomegaly or cardiac silhouette abnormality. MEDIASTINUM: No visible mass or adenopathy. BONES: No fracture or visible bone lesion. OTHER: Negative. XR/XR chest 2V IMPRESSION: No acute cardiopulmonary process Electronically authenticated by: BREANNA QUEZADA Date: 09/21/2023 07:35 Dictated By: Breanna Quezada M.D. Signed By: 09/21/23 0738 DD/ 0735 TD/TT: Clinic Supervisor: Procedure Note Radiology, Radiologist, MD - 09/21/[address] [address] XRay Report Signed Patient: OTONIEL RIVAS LMR#: [id number] : 1985Acct:[id number] Age/Sex: 38 / FADM Date: 09/20/23 Loc: [facility] Attending Dr: Neil Ball D.O. Ordering Physician: Neil Ball D.O. Date of Service: 09/20/23 Procedure(s): XR chest 2V Accession Number(s): [id number] cc: Neil Ball D.O.; Kilo Levi M.D. [facility] [place] [id number] Patient Name: OTONIEL RIVAS MRN: [id number] date: 1985 Sex: F Assigned Patient Location: [facility] Current Patient Location: [facility] Accession/Order Number: [id number] Exam Date: 09/20/2023 11:35 Report Date: 09/21/2023 07:35 At the request of: NEIL BALL Procedure: XR chest 2V EXAMINATION: XR chest 2V HISTORY: Preop exam COMPARISON: No relevant comparison available. TECHNIQUE: PA and lateral FINDINGS: LUNGS: No significant pulmonary parenchymal abnormalities. VASCULATURE: No increased pulmonary vasculature. PLEURA: No pneumothorax, effusion, or pleural thickening. CARDIAC: No cardiomegaly or cardiac silhouette abnormality. MEDIASTINUM: No visible mass or adenopathy. BONES: No fracture or visible bone lesion. OTHER: Negative. XR/XR chest 2V IMPRESSION: No acute cardiopulmonary process Electronically authenticated by: BREANNA QUEZADA Date: 09/21/2023 07:35 Dictated By: Breanna Quezada M.D. Signed By:09/21/2338 DD/ TD/TT: Clinic Supervisor: us Generic External Data Provider [facility] Final Result documented in this encounter Visit Diagnoses Not on filedocumented in this encounter Care Teams Foot Roentgenologist Relationship Specialty Start Date End Date Kilo Levi MD [address] [place] [address] PCP - General Family Medicine 09/04/23 documented as of this encounter
--- OUTSIDE RECORDS SUMMARY | 2024-08-14 07:38 | XMS_ITS | CCD ---
Author Organization [facility] Care Team Providers Care Jewel Inserter Name Role Phone UNKNOWN, PROVIDER Unavailable Unavailable [...] Unavailable LIZZY ., DR TREJO Admitting Unavailable NADTAMIKO, DR KILO Diane Primary Care Unavailable LIZZY ., DR TREJO Consulting Unavailable LIZZY ., DR TREJO Attending Unavailable ANASTASIA ANAYA Consulting Unavailable ABBYPATTI Shaikh II Consulting Unavailable LIZZY ., DR TREJO Attending Unavailable NADEDMARR, DR KILO Diane Primary Care Unavailable LIZZY ., DR TREJO Admitting Unavailable LIZZY ., DR TREJO Consulting Unavailable EUGENIA DRISCOLLI E Attending Unavailable Unavailable Primary Care Provider UnavailKilo Kim MD Primary Care Provider Neil Ball Attending Provider DO Neil Ball Attending Provider Neil Ball Attending Unavailable Neil Ball Admitting Unavailable Neil Ball Attending Unavailable Neil Ball Admitting Unavailable Kilo Duncan MD Primary Care Provider [phone] KILO DUNCAN Attending Unavailable NEIL BALL Attending Unavailable CASSANDRA CASTILLO Attending Unavailable CASSANDRA CASTILLO Attending Unavailable KILO DUNCAN Attending Unavailable Allergies Allergy Classification Reported Allergen(s) Allergy Type Date of Onset Reaction(s) Facility Corticosteroids (1 source) Desonide Drug Allergy 4 [facility] (1 source) Desonide Drug Allergy 4 [facility] Repository (1 source) ALLERGIES NOT ON FILE; Translations: [ALLERGIES NOT ON FILE] Propensity to adverse reactions (disorder) [facility] 3 Repository (4 sources) Desonide Propensity to [...] Test Name Value Interpretation Reference Range Facility [facility] HEMOGLOBIN A1Con 10-11-2 024 Glucose [Mass/Vol] 100 mg/dL [facility] HbA1c (Bld) [Mass fraction] 5.1 % 4.5 - 6.2 % [facility] Comment on above: ADA RECOMMENDED LIMI T 4.0 - 6.0 ADA THERAPEUTIC TARGET < 7.0 ACTION SUGGESTED > 7.0 [facility] [place] 09-27-2023 L Specimen: [id number] Received: 09/28/23 Status: [facility] Num: [id number] Spec Type: Surgical Subm Dr: Neil Ball Tissues: A Uterus w/ or w/o tubes ovaries except neoplastic or prolap (UTERUS AND CER Procedures: HE/12, Gross/Micro L5 Age/ Patient Sex Location Account Attending Physician Rivas,Jennifer العراقي 38/F LABELL [id number] Neil Ball SPEC NUM: [id number] RECD: 09/28/23 STATUS: [facility] NUM: [id number] RAMON: 09/27/[address]: Neil Ball ENTERED: 09/28/[address] [facility] DR: Arias,Lab SPEC TYPE: Surgical DEPT: NANO [...] areas of necrosis or hemorrhage are present. Lodging Manager sections submitted as follows: A1: Anterior cervix A2: Posterior cervix Specimen: [id number] Received: 09/28/23 Status: [facility]una Num: [id number] Spec Type: Surgical Subm Dr: Neil Ball Tissues: A Uterus w/ or w/o tubes ovaries except neoplastic or prolap (UTERUS AND CER Procedures: , Gross/Micro L5 Patient: Jennifer Rivas [id number] (Continued) Specimen: [id number] Received: 09/28/23 (Continued) Gross Description (Continued) Signed (signature on file) Lefty Ramírez MD 10/02/23 1410 Specimen: [id number] Received: 09/28/23 Status: [facility] Num: [id number] Spec Type: Surgical Subm Dr: Neil Ball Tissues: A Uterus w/ or w/o tubes ovaries except neoplastic or prolap (UTERUS AND CER Procedures: , Gross/Micro L5 Patient: Jennifer Rivas [id number] (Continued) Specimen: [id number] Received: 09/28/23 (Continued) Gross Description (Continued) A3-A4: Anterior endomyometrium A5-A6: Posterior endomyometrium A7: Nodule CPT Codes 56811 Specimen: [id number] Received: 09/28/23 Status: [facility] Num: [id number] Spec Type: Surgical Subm Dr: Neil Ball Tissues: A Uterus w/ or w/o tubes ovaries except neoplastic or prolap (UTERUS AND CER Procedures: , Gross/Micro L5 Patient: Jennifer Rivas [id number] (Continued) Signed (signature on file) Lefty Ramírez MD 10/02/23 1410 Normal [facility] [place] 09-04-2023 L Specimen: [id number] Received: 09/05/23-1300 Status: [facility] Num: [id number] Spec Type: Surgical Subm Dr: Neil Ball Tissues: A Endometrium - Biopsy (EMB) Procedures: HE/2, Gross/Micro L4 Age/ Patient Sex Location Account Attending Physician Jennifer Rivas 38/F LABELL [id number] Neil Ball SPEC NUM: [id number] RECD: 09/05/23 STATUS: PH[facility] COATESLauren NUM: [id number] RAMON: 09/04/[address] [facility] DR: Neil Ball ENTERED: 09/05/[address] [facility] [address]: Arias,Lab SPEC TYPE: Surgical DEPT: NANO GAN ORDERED: HE/2, Gross/Micro L4 ORDERED: HE/2, Gross/Micro L4 Pathological Diagnosis Endometrium, biopsy: Proliferative endometrium. Clinical Information Menorrhagia N92.0. Gross Description Received in formalin labeled with the patient's name, date of and endometrial biopsy is a 2.4 x 0.7 x 0.2 cm aggregate of mata tissue and mucus, entirely submitted in A1. CPT Codes 01773 Specimen: [id number] Received: 09/05/23 Status: PH[facility] Mikie Num: [id number] Spec Type: Surgical Subm Dr: Neil Ball Tissues: A Endometrium - Biopsy (EMB) Procedures: HE/2, Gross/Micro L4 Patient: Jennifer Rivas [id number] (Continued) Signed (signature on file) Lefty Ramírez MD 09/06/23 1610 Normal [facility] CBC AUTO DIFFon 07-28-2022 BASO # 0.2 103/ul Critically high 0.0-0.1 The [facility] Comment on above: Performed By: #### C BC #### [facility] [address] [place] [address] Dr. Ngozi Christie Basophils/100 WBC (Bld) 1.8 % Normal 0.2-2.0 [facility] Comment on above: Performed By: #### C BC #### [facility] [address] [place] [address] Dr. Ngozi Christie EO # 0.2 103/ul Normal 0.0-0.7 [facility] Comment on above: Performed By: #### C BC #### [facility] [address] [place] [address] Dr. Ngozi Christie Eosinophils/100 WBC (Bld) 2.3 % Normal 0.9-7.0 [facility] Comment on above: Performed By: #### C BC #### [facility] [address] [place] [address] Dr. Ngozi Christie Erythrocyte distribution width (RBC) [Ratio] 11.7 % Normal 11.0-15.0 [facility] Comment on above: Performed By: #### C BC #### [facility] [address] [place] [address] Dr. Ngozi Christie Hematocrit (Bld) [Volume fraction] 42.2 % Normal 36.0-48.0 [facility] Comment on above: Performed By: #### C BC #### [facility] [address] [place] [address] Dr. Ngozi Christie Hemoglobin (Bld) [Mass/Vol] 14.0 g/dL Normal 12.0-16.0 [facility] Comment on above: Performed By: #### C BC #### [facility] [address] [place] [address] Dr. Ngozi Christie IG # 0.03 10e3/ul Normal 0.00-0.03 [facility] Comment on above: Performed By: #### C BC #### [facility] [address] [place] [address] Dr. Ngozi Christie IG % 0.4 % Normal 0.0-0.5 [facility] Comment on above: Performed By: #### C BC #### [facility] [address] [place] [address] Dr. Ngozi Christie LYMPH # 2.3 103/ul Normal 1.2-3.8 [facility] Comment on above: Performed By: #### C BC #### [facility] [address] [place] [address] Dr. Ngozi Christie Lymphocytes/100 WBC (Bld) 27.6 % Normal 20.5-60.0 [facility] Comment on above: Performed By: #### C BC #### [facility] [address] [place] [address] Dr. Ngozi Christie MANUAL DIFF REQ NO Normal [facility] Comment on above: Performed By: #### C BC #### [facility] [address] [place] [address] Dr. Ngozi Christie MCH (RBC) [Entitic mass] 28.9 pg Normal 26.7-34.0 [facility] Comment on above: Performed By: #### C BC #### [facility] [address] [place] [address] Dr. Ngozi Christie MCHC (RBC) [Mass/Vol] 33.2 g/dL Normal 29.9-35.2 [facility] Comment on above: Performed By: #### C BC #### [facility] [address] [place] [address] Dr. Ngozi Christie MCV (RBC) [Entitic vol] 87.0 fL Normal 81.0-99.0 [facility] Comment on above: Performed By: #### C BC #### [facility] [address] [place] [address] Dr. Ngozi Christie MONO # 0.5 103/ul Normal 0.3-0.8 The [facility] Comment on above: Performed By: #### C BC #### [facility] [address] [place] [address] Dr. Ngozi Christie Monocytes/100 WBC (Bld) 5.7 % Normal 1.7-12.0 [facility] Comment on above: Performed By: #### C BC #### [facility] [address] [place] [address] Dr. Ngozi Christie NEUT # 5.2 103/ul Normal 1.4-6.5 [facility] Comment on above: Performed By: #### C BC #### [facility] [address] [place] [address] Dr. Ngozi Christie Neutrophils/100 WBC (Bld) 62.2 % Normal 43.0-75.0 The [facility] Comment on above: Performed By: #### C BC #### [facility] [address] [place] [address] Dr. Ngozi Christie Platelet mean volume (Bld) [Entitic vol] 10.0 fL Normal 9.5-13.5 The [facility] Comment on above: Performed By: #### C BC #### [facility] [address] [place] [address] Dr. Ngozi Christie PLT 332 103/ul Normal 150-450 The [facility] Comment on above: Performed By: #### C BC #### [facility] [address] [place] [address] Dr. Ngozi Christie RBC 4.85 106/ul Normal 4.20-5.40 The [facility] Comment on above: Performed By: #### C BC #### [facility] [address] [place] [address] Dr. Ngozi Christie WBC 8.4 103/ul Normal 4.0-11.0 [facility] Comment on above: Performed By: #### C BC #### [facility] [address] [place] [address] Dr. Ngozi Christie PREG QUANT HCGon 07-28-2022 HCG QUANT <1 Normal [facility] Comment on above: Performed By: #### P REGQNT #### [facility] [address] [place] [address] Dr. Ngozi Christie HCG RANGE SEE BELOW [facility] Comment on above: Result Comment: 5-50 0.2-1 WEEK 50-500 1-2 WEEKS 100-5,000 2-3 WEEKS 500-10,000 3-4 WEEKS 1,000-50,000 4-5 WEEKS 10,000-100,000 5-6 WEEKS 15,000-200,000 6-8 WEEKS 10,000-100,000 2-3 MONTHS Performed By: #### P REGQNT #### [facility] [address] [place] [address] Dr. Ngozi Christie PAP ACOG PANEL 2: 30 to 65on 05-11-2022 . . Normal [facility] Comment on above: Result Comment: Perf ormed at: WB Performed By: #### [id number] #### [facility] [address] [place] [address] Dr. Ngozi Christie Age Gdln ACOG Testing 30-65 Normal [facility] Comment on above: Performed By: #### [id number] #### [facility] [address] [place] [address] Dr. Ngozi Christie DIAGNOSIS: Comment Normal [facility] Comment on above: Result Comment: NEGA TIVE FOR INTRAEPITHELIAL LESION OR MALIGNANCY. Performed at: WB Performed By: #### 4 [id number] #### [facility] [address] [place] [address] Dr. Ngozi Christie HPV Aptima Negative Normal Negative [facility] Comment on above: Result Comment: This nucleic acid amplification test detects fourteen high-risk HPV types (16,18,31,33,35,39,45,51,52,56,58,59,66,68) without differentiation. Performed at: =G Performed By: #### 4 [id number] #### [facility] [address] [address] [address] Ngozi Christie HPV Genotype Reflex Comment Normal [facility] Comment on above: Result Comment: Crit eria not met, HPV Genotype not performed. Performed at: WB Performed By: #### 4 [id number] #### [facility] [address] [place] [address] Dr. Ngozi Christie Methodology: Comment Normal [facility] Comment on above: Result Comment: This liquid based ThinPrep(R) pap test was screened with the use of an image guided system. Performed at: WB Performed By: #### [id number] #### [facility] [address] [place] [address] Dr. Ngozi Christie Note: Comment Normal [facility] Comment on above: Result Comment: The Pap smear is a screening test designed to aid in the detection of premalignant and malignant conditions of the uterine cervix. It is not a diagnostic procedure and should not be used as the sole means of detecting cervical cancer. Both false-positive and false-negative reports do occur. . Performed at: WB Performed By: #### 4 [id number] #### [facility] [address] [address] [address] Ngozi Christie Performed by: Comment Normal [facility] Comment on above: Result Comment: Manuel Najera Needle Loom Operator Helper (ASCP) Performed at: WB Performed By: #### [id number] #### [facility] [address] [place] [address] Dr. Ngozi Christie Specimen adequacy: Comment Normal [facility] Comment on above: Result Comment: Sati sfactory for evaluation. Endocervical and/or squamous metaplastic cells (endocervical component) are present. Performed at: WB Performed By: #### 4 [id number] #### [facility] [id number] Ngozi Christie No Panel InformationOrdered By: Milo Potter on 07-22-2020 1. Soft tissue swelling at the lateral aspect of the left ankle. No fracture or disruption of the ankle mortise. 2. Small posterior calcaneal spur. 3. No fracture or joint abnormality is identified in the left foot. [facility] Phone: LEFT ANKLE 3 VIEWS AND LEFT [...] No other significant degenerative spurring is identified. [facility] Phone: Fausto, [facility] Incoming Radiant Results From the grafter/Exiless - 07/22/2020 3:39 PM EDT LEFT ANKLE [...] abnormality is identified in the left foot. [facility] Phone: XR ANKLE LEFT (MIN 3 VIEWS)o [...] Feliciano Jones MD 07/22/20 Final result Normal [facility] XR FOOT LEFT (MIN 3 VIEWS)on 07-22-2020 [...] Feliciano Jones MD 07/22/20 Final result Normal [facility] Vital Signs Date Time Vital Sign Value Performing Clinician Krysta gamez 12-21-2023 10:26-0400 Body height 175.3 cm Kilo Duncan MD Work Phone: [facility] 12-21-2023 10:26-0400 Body mass index (BMI) [Ratio] 29.98 kg/m2 Kilo Duncan MD Work Phone: [facility] 12-21-2023 10:26-0400 Body temperature 97.81 [degF] Kilo Duncan MD Work Phone: [facility] 12-21-2023 10:26-0400 Body weight 92.08 kg Kilo Duncan MD Work Phone: [facility] 12-21-2023 10:26-0400 Diastolic blood pressure 72 mm[Hg] Kilo Duncan MD Work Phone: [facility] 12-21-2023 10:26-0400 Heart rate 62 /min Kilo Duncan MD Work Phone: [facility] 12-21-2023 10:26-0400 Respiratory rate 18 /min Kilo Duncan MD Work Phone: [facility] 12-21-2023 10:26-0400 SaO2% (BldA) [Mass fraction] 97 % Kilo Duncan MD Work Phone: [facility] 12-21-2023 10:26-0400 Systolic blood pressure 114 mm[Hg] Kilo Duncan MD Work Phone: [facility] 11-08-2023 10:03-0400 Body mass index (BMI) [Ratio] 30.1 kg/m2 Cassandra LEUNG Work Phone: [facility] 11-08-2023 10:03-0400 Body weight 95.17 kg Cassandra LEUNG Work Phone: [facility] 11-08-2023 10:03-0400 Diastolic blood pressure 70 mm[Hg] Cassandra LEUNG Work Phone: [facility] 11-08-2023 10:03-0400 Systolic blood pressure 116 mm[Hg] Cassandra LEUNG Work Phone: [facility] 07-22-2020 14:59-0400 Body height 177.8 cm Milo Potter MD Work Phone: [facility] Work Phone: 07-22-2020 14:59-0400 Body mass index (BMI) [Ratio] 25.83 kg/m2 Milo Potter MD Work Phone: [facility] Work Phone: 07-22-2020 14:59-0400 Body temperature 99.1 [degF] Milo Potter MD Work Phone: [facility] Work Phone: 07-22-2020 14:59-0400 Body weight 81.65 kg Milo Potter MD Work Phone: [facility] Work Phone: 07-22-2020 14:59-0400 Diastolic blood pressure 55 mm[Hg] Milo Potter MD Work Phone: [facility] Work Phone: 07-22-2020 14:59-0400 Heart rate 113 /min Milo Potter MD Work Phone: [facility] Work Phone: 07-22-2020 14:59-0400 Respiratory rate 18 /min Milo Potter MD Work Phone: [facility] Work Phone: 07-22-2020 14:59-0400 SaO2% (BldA) [Mass fraction] 100 % Milo Potter MD Work Phone: [facility] Work Phone: 07-22-2020 14:59-0400 Systolic blood pressure 146 mm[Hg] Milo Potter MD Work Phone: [facility] Work Phone: Encounters Encounter Date Encounter Type Care Provider Facility Start: 08-13-2024 End: 08-13-2024 ambulatory KILO DUNCAN Not Available Start: 12-21-2023 End: 12-21-2023 Bamboo flowsheet Kilo [...] Not Available Start: 09-27-2023 End: 09-27-2023 ambulatory Neil Lizzy [facility] Work Phone: Start: 09-27-2023 End: 09-27-2023 Departed Referred DO Neil Lizzy Work Phone: [facility] Start: 09-04-2023 End: 09-04-2023 Departed Referred Neil Lizzy Work Phone: [facility] Start: 09-04-2023 End: 09-04-2023 ambulatory Neil Lizzy [facility] Work Phone: Start: 04-18-2023 Chart abstracting Neil Gusmano DO Work Phone: [facility] Start: 01-01-2023 End: 01-01-2023 ambulatory [facility] Start: 01-01-2023 End: 01-01-2023 Postop follow up visit related to original px Bryon Driscoll MD Work Phone: [facility] Comment on above: Sprain of left ankle , unspecified ligament, initial encounter (Primary Dx) Start: 07-28-2022 End: 07-28-[address] NEIL BALL . Facility:[facility] Start: 07-22-2022 Encounter for preprocedural cardiovascular examination DR NEIL BALL . The [facility] Start: 07-19-2022 End: 07-20-2022 ambulatory BEREKET NAVARRETE Facility:[facility] Start: 07-19-2022 End: 07-20-2022 Encounter for preprocedural cardiovascular examination BEREKET NAVARRETE Facility:[facility] Start: 05-04-2022 End: 05-04-[address] NEIL BALL . Facility:[facility] Start: 07-22-2020 End: 07-22-2020 Emergency department patient visit MILO POTTER [facility] Start: 07-22-2020 End: 07-22-2020 Emergency department patient visit Milo Potter MD Work Phone: [facility] ED Comment on above: Sprain of left ankle , unspecified ligament, initial encounter (Primary Dx); Accidental fall, initial encounter Start: 03-02-2016 End: 03-03-2016 Ambulatory PROVIDER UNKNOWN Facility:[facility] Procedures Date Procedure Procedure Detail Performing Clinician [...] f 2) Zoster Vaccines (1 of 2) [facility] Start: 05-04-2027 Screening for malign ant neoplasm of cervix [facility] Start: 12-21-2023 End: 12-20-2024 Basic metabolic 1998 panel - Serum or Plasma Basic metabolic panel Lab Routine Annual physical exam Expected: 12/21/2023 (Approximate), Expires: 12/20/2024 [facility] Comment on above: Expected: 12/21/2023 (Approximate), Expires: 12/20/2024 Start: 12-21-2023 End: 12-20-2024 CBC W Auto Differential panel - Blood CBC and differential Lab Routine Annual physical exam Expected: 12/21/2023 (Approximate), Expires: 12/20/2024 [facility] Comment on above: Expected: 12/21/2023 (Approximate), Expires: 12/20/2024 Start: 12-21-2023 End: 12-20-2024 Hemoglobin A1c/Hemoglobin.total in Blood Hemoglobin A1c Lab Routine Annual physical exam Expected: 12/21/2023 (Approximate), Expires: 12/20/2024 [facility] Work Phone: Comment on above: Expected: 12/21/2023 (Approximate), Expires: 12/20/2024 Start: 12-21-2023 End: 12-20-2024 Hepatic function 2000 panel - Serum or Plasma Hepatic function panel Lab Routine Annual physical exam Expected: 12/21/2023 (Approximate), Expires: 12/20/2024 [facility] Comment on above: Expected: 12/21/2023 (Approximate), Expires: 12/20/2024 Start: 12-21-2023 End: 12-20-2024 Lipid 1996 panel - Serum or Plasma Lipid panel Lab Routine Annual physical exam Expected: 12/21/2023 (Approximate), Expires: 12/20/2024 [facility] Comment on above: Expected: 12/21/2023 (Approximate), Expires: 12/20/2024 Start: 12-21-2023 End: 12-20-2024 Thyrotropin [Units/volume] in Serum or Plasma TSH Lab Routine Annual physical exam Expected: 12/21/2023 (Approximate), Expires: 12/20/2024 [facility] Comment on above: Expected: 12/21/2023 (Approximate), Expires: 12/20/2024 Start: 12-21-2023 End: 12-21-2023 Patient encounter procedure 12/21/2023 10:15 AM EDT Office Visit [facility] [address] [place] [address] Kilo Duncan MD [address] [place] [address] Arrived [facility] Comment on above: Arrived Start: 11-11-2023 Influenza vaccination Influenza Vacc ine (#1) [facility] Start: 11-08-2023 End: 11-08-2023 Patient encounter procedure 11/08/2023 9:30 AM EDT Office Visit [facility] [address] [place] [id number] Cassandra Castillo PA [address] [place], [place] [id number] Arrived [facility] Comment on above: Arrived Start: 05-09-2023 End: 05-09-2023 Patient encounter procedure 05/09/2023 1:50 PM EST Office Visit [facility] [address] [place] [id number] Neil Ball, DO [address] [place] [address] [facility] Start: 11-10-2022 Influenza vaccination Influenza Vacc ine (#1) [facility] Start: 11-10-2020 Influenza vaccination [facility] vacc ine ([facility] Ended[facility] Start: 01-31-2008 DTaP/Tdap/Td Vaccine s (1 - Tdap) DTaP/Tdap/Td Vaccines (1 - Tdap) [facility] Start: 2007 Screening for malign ant neoplasm of cervix [facility] Start: 2005 DTaP/Tdap/Td vaccine (1 - Tdap) DTaP/Tdap/Td vaccine (1 - Tdap) [facility] Phone: Start: 01-31-2004 Diabetes mellitus screening Diabetes Screening [facility] Start: 01-31-2004 Hepatitis C screening Hepatitis C Sc reening [facility] Start: 2001 HIV screening HIV screen [facility] Work Phone: Start: 1998 COVID-19 Vaccine (1) COVID-19 Vaccin e (1) [facility] Phone: Start: 1987 MMR Vaccines (1 of 1 - Standard series) MMR Vaccines (1 of 1 - Standard series) [facility] Start: 1987 Varicella vaccination Varicell a Vaccines (1 of 2 - 2-dose childhood series) [facility] Start: 1987 Varicella vaccine (1 of 2 - 2-dose childhood series) Varicella vaccine (1 of 2 - 2-dose childhood series) [facility] [employer] Phone: Start: 1986 COVID-19 Vaccine (#1) COVID-19 Vacci ne (#1) [facility] Start: 1986 Hepatitis B Vaccines (1 of 3 - 3-dose series) Hepatitis B Vaccines (1 of 3 - 3-dose series) [facility] Start: 1986 Hepatitis C screening Hepatitis C al raza [facility] Work Phone: Start: 1986 HIV screening HIV Screening [facility] Start: 1986 Lipid panel Lipid Panel [facility] Start: 1986 Yearly Adult Physical Yearly Adult P hysical [facility] Immunizations Immunization Date Immunization Notes Care Provider Gera mohan 02-16-2016 influenza virus vaccine, unspecified formulation Bryon Driscoll MD Work Phone: [facility] Work Phone: Payers Date Payer Category Payer Self-pay 2021 Private Health Insurance FAUZIASUSAN Lindy SHELTON [id number] 2021-Present [address] [place] [address] [id number] 2021 Private Health Insurance [id number] 2021 Private Health Insurance [id number] 2020 Unknown [id number] 2020 Unknown [place] [employer] [employer] DEPARTMENT OF LABOR [id number] 2020-Present [address] [place] [address] [id number] 1986 Unknown [id number] 2.16.840.1.184143.3.579. 2.593 1986 Unknown [id number] 2.16.840.1.623602.3.579. 2.593 1986 Unknown [id number] 2.16.840.1.808501.3.579. 2.593 1986 Unknown [id number] 2.16.840.1.639157.3.579. 2.1244 1986 Unknown [id number] 2.16.840.1.216163.3.579. 2.1259 1986 Unknown [id number] 2.16.840.1.547610.3.579. 2.1259 1986 Unknown [id number] 2.16.840.1.855506.3.579. 2.1259 1986 Unknown [id number] 2.16.840.1.660181.3.579. 2.1259 1986 Unknown [id number] 2.16.840.1.872098.3.579. 2.1259 1959 Private Health Insurance [id number] Unknown [id number] Unknown [id number] 2.16.840.1.199417.3.579. 2.531 Unknown [id number] 2.16.840.1.116689.3.579. 2.531 Social History Date Type Detail Facility Start: 07-22-2020 Tobacco smoking stat [facility] Current every day smoker [facility] Work Phone: History of tobacco use Cigarette Smoker [facility] Start: 07-22-2020 End: 04-18-2023 Cigarettes smoked current (pack per day) - Reported [facility] Start: 07-22-2020 End: 12-21-2023 Tobacco use and exposure Never used [facility] Start: 1985 Sex Assigned At Not on file [facility] Phone: Start: 12-22-2022 End: 01-01-2023 Exposure to SARS-CoV-2 (event) Not sure [facility] Tobacco smoking stat [facility] Tobacco smoking consumption unknown [facility] Work Phone: Start: 04-18-2023 End: 12-14-2023 Gender identity Not on file [facility] Start: 04-18-2023 End: 12-21-2023 Tobacco smoking status [facility] Never smoked tobacco [facility] Start: 04-18-2023 End: 11-08-2023 Alcohol intake Lifetime non-drinker (finding) [facility] Start: 1986 Sex Assigned At Female F [facility] How often do you nee d to [...] were not included. Subjective Patient ID: Jennifer Rivas is a 38 y.o. female who presents [...] Lipid panel TSH documented in this encounter [facility] 11-08-2023 History of Present illness Narrative Reason for Appointment: Patient ID: Jennifer Rivas is a 38 y.o. female who presents for Post-op Visit Patient presents today for 6 week [facility] Post Op Follow Up appointment. MEDICATIONS Current [...] nursing note reviewed. Exam conducted with a java core developer present. Vitals: Estimated body mass index is [...] of: XOCHITL Arteaga documented in this encounter [facility] 01-01-2023 History of Present illness Narrative Report documented in this encounter [facility] Work Phone: 07-28-2022 Note OPERATIVE NOTE OPERATION DATE: 07/28/2022 PROCEDURE: Hysteroscopy with robotic assisted laparoscopic salpingectomy. PREOPERATIVE DIAGNOSIS: Menorrhagia, dysmenorrhea, pelvis pain. POSTOPERATIVE DIAGNOSIS: Menorrhagia, dysmenorrhea, pelvis pain. ANESTHESIA: General. SURGEON: Neil Ball D.O. CENTRAL OFFICE WORKER: AMERICA Holcomb URINE OUTPUT: Yellow and clear. [...] and needle counts were correct x2. The [facility] 07-19-2022 Note PROCEDURE: XR CHEST 2 V [...] by: EHSAN ARREDONDO Date: 2022-07-19 09:39 [facility] Evaluation note Diagnosis Sprain of left ankle, unspecified ligament, initial encounter- Primary Accidental fall, initial encounter documented in this encounter [facility] Work Phone: evaluation note* Diagnosis Sprain of left ankle, unspecified ligament, initial encounter- Primary documented in this encounter [facility] Work Phone: Evaluation noteNo assessment information available [facility] Work Phone: Evaluation note* Diagnosis Annual physical exam- Primary Routine general medical examination at a health care facility documented in this encounter [facility] HealthcareEvaluation note* Diagnosis Postop check Follow-up examination, following unspecified surgery [facility] Attachments The following attachments cannot be sent through Care Everywhere. * Ankle Sprain (Nepali) * RICE: General Info (Nepali) [facility] Work Phone: Summary Purpose Family History No [...] and content) DATE CREATED AUTHOR 09/07/2017 [facility] DATE CREATED AUTHOR AUTHOR'S ORGANIZ ATION 07/24/2020 [facility] DATE CREATED AUTHOR AUTHOR'S ORGANIZ ATION 08/18/2022 [facility] DATE CREATED AUTHOR AUTHOR'S ORGANIZ ATION 01/04/2023 [facility] DATE CREATED AUTHOR AUTHOR'S ORGANIZ ATION 10/05/2023 [facility] DATE CREATED AUTHOR AUTHOR'S ORGANIZ ATION 08/14/2024 [facility] EPIC Reason for Visit (unrecogniz ed section and content) Reason Comments Ankle Pain left ankle pain, 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 Reason Comments Follow-up Follow up Reason Comments Post-op Visit Care Teams (unrecognized sec tion and content) Jewel Inserter Relationship Specialty Start Date End Date Kilo Duncan MD PCP - General Cardiology 08/03/22 Team Status: Inactive Member Role Status Dates Neil Ball Attending Provider Active Start: 2023 End: September 04, 2023 Team Status: Inactive Member Role Status Dates Neil Ball DO Attending Provider Active Start : September 04, 2023 End: September 04, 2023 Team Status: Inactive Member Role Status Dates Neil Ball DO Attending Provider Active Start : September 27, 2023 End: September 27, 2023 Jewel Inserter Relationship Specialty Start Date End Date Kilo Duncan MD [address] [place] [phone] PCP - General Family Medicine 09/04/23 Jewel Inserter Relationship Specialty Start Date End Date Kilo Duncan MD [address] [place] [phone] PCP - General [facility] Medicine 09/04/23 Jewel Inserter Relationship Specialty Start Date End Date Kilo Duncan MD [address] [place] [address] PCP - [facility] 09/04/23 Jewel Inserter Relationship Specialty Start Date End Date Kilo Duncan MD [address] [place] [phone] PCP - General Family Medicine 09/04/23 Goals [...] BE BASED ON THE PRIMARY CLINICAL RECORDS. [facility]. provides no warranty or guarantee of the accuracy or completeness of information in this document.
--- OUTSIDE RECORDS SUMMARY | 2024-08-14 07:38 | XMS_ITS | Clinical Summary ---
Author Organization [facility] Address [id number] [address] [place] [address] Care Team Providers Care Lung Gun Operator Name Role Phone Unavailable Primary Care Provider Unavailabl e Social History Tobacco Use Types Packs/Day Years Used Date Smoking Tobacco: Never Assessed Childcare Answer Date Recorded Childcare Unknown 08/21/2018 Employment Answer Date Recorded Employment Unknown 08/21/2018 Comments Unknown Sex and Gender Information Value Date Recorded Sex Assigned at Not on file Legal Sex Female 11:46 AM EDT Gender Identity Not on file Sexual Orientation Not on file Plan of Treatment Not on file Medical Devices Not on file
--- OUTSIDE RECORDS SUMMARY | 2024-08-14 07:38 | XMS_ITS | Encounter Summary ---
Author Organization [facility] Address [address] [place] [address] Care Team Providers Care Betting Clerks Name Role Phone Kilo Levi MD Primary Care Provider [phone] Encounter Details Date Type Department Care Team (Late Contact Info) Description 09/07/2023 Abstract [facility] [address] [place] [place] [phone] Tina Melendez LPN [address] [place] [address] Social History Tobacco Use Types Packs/Day Years [...] Office Visit [facility] [address] [place] [phone] Kilo Levi MD [address] [place] [address] documented as of this encounter Visit Diagnoses Not on filedocumented in this encounter Care Teams Betting Clerks Relationship Specialty Start Date End Date Kilo Levi MD [address] [place] [address] PCP - General Family Medicine 09/04/23 documented as of this encounter
--- OUTSIDE RECORDS SUMMARY | 2024-08-14 07:38 | XMS_ITS | Encounter Summary ---
Author Organization [facility] Address [address] [place] [address] Care Team Providers Care Oncology Social Work Name Role Phone Kilo Levi MD Primary Care Provider [phone] Encounter Details Date Type Department Care Team (Late Contact Info) Description 09/05/2023 Abstract [facility] [address] [place] [phone] Jesus Ball, DO [address] [facility] [address] [place], [place] [id number] Social History Tobacco Use Types Packs/Day Years [...] Office Visit [facility] [address] [place] [phone] Kilo Levi MD [address] [place] [address] documented as of this encounter Visit Diagnoses Not on filedocumented in this encounter Care Teams Oncology Social Work Relationship Specialty Start Date End Date Kilo Levi MD [address] [place] [address] PCP - General Family Medicine 09/04/23 documented as of this encounter
--- OUTSIDE RECORDS SUMMARY | 2024-08-14 07:38 | XMS_ITS | Encounter Summary ---
Author Organization [facility] Address [address] [place] [address] Care Team Providers Care Passenger Coach Driver Name Role Phone Kilo Levi MD Primary Care Provider [phone] Encounter Details Date Type Department Care Team (Latest Contact Info) Description 08/07/2024 Travel Social History Tobacco Use Types Packs/Day Years [...] often do you attend chur ch or worship services? Patient declined 12/14/2023 Do you belong to any clubs o r organizations such as voodoo groups, unions, fraternal or athletic groups, or [...] and heating? Not hard at all 12/14/2023 [facility] - Occupational Stress [...] in the past 12 m [facility], were you homeless or living in a fci (including now)? No 12/14/2023 Comments No Sex and Gender Information Value Date Recorded Sex Assigned at Not on file Legal Sex Female 11:47 PM EDT Gender Identity Not on file Sexual Orientation Not on file documented as of this encounter Plan of Treatment Upcoming Encounters Date Type Department Care Team (Late st Contact Info) Description 09/24/2024 7:45 AM EDT Office Visit [facility] [address] [place] [address] Kilo Levi MD [address] [place] [address] documented as of this encounter Visit Diagnoses Not on filedocumented in this encounter Care Teams Passenger Coach Driver Relationship Specialty Start Date End Date Kilo Levi MD [address] [place] [phone] PCP - General Family Medicine 09/04/23 documented as of this encounter
--- OUTSIDE RECORDS SUMMARY | 2024-08-14 07:38 | XMS_ITS | Encounter Summary ---
Author Organization [facility] Address [address] [place] [address] Care Team Providers Care Customer Service Sales Consultant Name Role Phone Kilo Levi MD Primary Care Provider [phone] Kilo Levi MD Primary Care Provider [phone] Encounter Details Date Type Department Care Team (Late Contact Info) Description 07/28/2022 Abstract [facility] [address] [place] [phone] Jesus Ball, DO [address] [facility] [address] [place], [place] [phone] Social History Tobacco Use Types Packs/Day Years Used Date Smoking Tobacco: Never Assessed Comments Unknown Sex and Gender Information Value Date Recorded Sex Assigned at Not on file Legal Sex Female 11:47 PM EDT Gender Identity Not on file Sexual Orientation Not on file documented as of this encounter Plan of Treatment Upcoming Encounters Date Type Department Care Team (Late Contact Info) Description 09/24/2024 7:45 AM EDT Office Visit [facility] [address] [place] [phone] Kilo Levi MD [address] [place] [phone] documented as of this encounter Visit Diagnoses Not on filedocumented in this encounter Care Teams Customer Service Sales Consultant Relationship Specialty Start Date End Date Kilo Levi MD PCP - General Cardiology 08/03/22 09/03/23 Kilo Levi MD [address] [place] [address] PCP - General Family Medicine 09/04/23 documented as of this encounter
--- OUTSIDE RECORDS SUMMARY | 2024-08-14 07:38 | XMS_ITS | Encounter Summary ---
Author Organization [facility] Address [address] [place] [address] Care Team Providers Care Motorcycle Repair Shop Supervisor Name Role Phone Kilo Levi MD Primary Care Provider [phone] Encounter Details Date Type Department Care Team (Late Contact Info) Description 11/05/2023 Abstract [facility] [address] [place] [phone] Jesus Ball, DO [address] [place], [place] [id number] Social History Tobacco Use Types Packs/Day Years [...] Office Visit [facility] [address] [place] [phone] Kilo Levi MD [address] [place] [address] documented as of this encounter Visit Diagnoses Not on filedocumented in this encounter Care Teams Motorcycle Repair Shop Supervisor Relationship Specialty Start Date End Date Kilo Levi MD [address] [place] [address] PCP - General Family Medicine 09/04/23 documented as of this encounter
--- OUTSIDE RECORDS SUMMARY | 2024-08-14 07:38 | XMS_ITS | Clinical Summary ---
Author Organization [facility] Address [address] [place] [address] Phone Care Team Providers Care Vat Tender Name Role Phone Unavailable Primary Care Provider Unavailabl e Social History Tobacco Use Types Packs/Day Years Used Date Smoking Tobacco: Never Assessed Comments Unknown Sex and Gender Information Value Date Recorded Sex Assigned at Not on file Legal Sex Female 11:13 AM EDT Gender Identity Not on file Sexual Orientation Not on file Plan of Treatment Health Maintenance Due Date Last Done Comments HIV Screening 1986 Lipid Panel 1986 Yearly Adult Physical 1986 MMR Vaccines (1 of 1 - Stand eugenie series) 1987 Varicella Vaccines (1 of 2 - 13+ 2-dose series) 1999 Diabetes Screening 01/31/2004 Hepatitis C Screening 01/31/2004 Hepatitis B Vaccines (1 of 3 - 19+ 3-dose series) 2005 Cervical Cancer Screening 2007 HPV/Cotest 2007 Pap Smear 2007 DTaP/Tdap/Td Vaccines (1 - Tdap) 01/31/2008 COVID-19 Vaccine (1 - 2023-2 5 season) 2023 Influenza Vaccine (Season Ended) 2024 02/16/20 16 Zoster Vaccines (1 of 2) 01/31/2036 HIB Vaccines Aged Out No longer eligi ble based on patient's age to complete this topic HPV Vaccines Aged Out No longer eligi ble based on patient's age to complete this topic Hepatitis A Vaccines Aged Out No long er eligible based on patient's age to complete this topic IPV Vaccines Aged Out No longer eligi ble based on patient's age to complete this topic Meningococcal Vaccine Aged Out No morales angel eligible based on patient's age to complete this topic Pneumococcal Vaccine: Pediat rics and At-Risk Adult Patients Aged Out No longer irene gible based on patient's age to complete this topic Rotavirus Vaccines Aged Out No longer eligible based on patient's age to complete this topic Insurance DEPARTMENT OF LABOR
--- OUTSIDE RECORDS SUMMARY | 2024-08-14 07:38 | XMS_ITS | Clinical Summary ---
Author Organization [facility] Address [address] [place] [address] Care Team Providers Care Poultry Processor Name Role Phone Kilo Levi MD Primary Care Provider [phone] Allergies No known active allergies Medications phentermine (Adipex-P) 37.5 MG tabletIndication s:Class 1 obesity due to excess calories without serious comorbidity with body mass index (BMI) of 30.0 to 30.9 in adult Take 1 tablet (37.5 mg) by mouth in the morning. Take before meals. 30 tablet 08/13/2024 Active Active Problems Problem Noted Date Diagnosed Date Class 1 obesity due to exces s calories without serious comorbidity with body mass index (BMI) of 30.0 to 30.9 in adult 08/13/2024 Assessment & Plan (08/13/2024 8:04 AM EDT): Patient overweight and difficult time losing weight. [...] month. OARRS reviewed. Continue medications as prescribed. Polyuria 08/13/2024 PCOS (polycystic ovarian syndrome) 08/13/2024 Assessment & Plan (08/13/2024 8:06 AM EDT): Check labs. Did not tolerate metformin due to diarrhea. May try moujaro. Migraine without aura and wi thout status migrainosus, not intractable 12/21/2023 Assessment & Plan (08/13/2024 8:05 AM EDT): JOSÉ stable and use OTC PRN. Annual physical exam 12/21/2023 Assessment & Plan (12/21/2023 11:15 AM EDT): Due for labs. Discussed proper diet and regular aerobic exercise. Need aerobic exercise 5-6 days a week for 30 minutes at a time. Smaller portions and limit total calories. Colonoscopy after age 45. Tetanus every 10 years. Advised not to smoke. Encounters Date Type Department Care Team Description 08/13/2024 7:30 AM EDT Office Visit [facility] [address] [place] [address] Kilo Levi MD Migraine without aura and without status migrainosus, not intractable (CMS/HCC) (Primary Dx); Polyuria; Class 1 obesity due to excess calories without serious comorbidity with body mass index (BMI) of 30.0 to 30.9 in adult; PCOS (polycystic ovarian syndrome); Fatigue, unspecified type 08/13/2024 Bamboo flowsheet [facility] [address] [place] [address] Kilo Levi MD 08/07/2024 Travel from Last 3 Months Family History Medical History Relation Name Comments Diabetes Mother Breast cancer Other Grandmother Relation Name Status Comments Mother Other Social History Tobacco Use Types Packs/Day Years Used Date Smoking Tobacco: Never Smokeless Tobacco: Never Tobacco Cessation:Counseling Given: Not Answered Alcohol Use Standard Drinks/Week Comments Never 0 [...] often do you attend chur ch or episcopal services? Patient declined 12/14/2023 Do you belong to any clubs o r organizations such as alevism groups, unions, fraternal or athletic groups, or [...] and heating? Not hard at all 12/14/2023 [facility] - Occupational Stress [...] any time in the past 12 m [facility], were you homeless or living in a prison (including now)? No 12/14/2023 Comments No Sex and Gender Information Value Date Recorded Sex Assigned at Not on file Legal Sex Female 11:47 PM EDT Gender Identity Not on file Sexual Orientation Not on file Last Filed Vital Signs Vital Sign Reading [...] Mass Index 30.57 08/13/2024 7:33 AM EDT Plan of Treatment Upcoming Encounters Date Type Department Care Team (Late st Contact Info) Description 09/24/2024 7:45 AM EDT Office Visit [facility] [address] [place] [phone] Kilo Levi MD [address] [place] [address] Health Maintenance Due Date Last Done Comments Influenza Vaccine (Season Ended) 2024 Cervical Cancer Screening Discontinued Pap Smear Discontinued 05/04/2022, 05/04/2022 HPV/Cotest Discontinued Procedures Procedure Name Priority Date/Time Associated Diagnosis Comments PAP SMEAR Routine 05/04/2022 12:00 AM EST from Last 3 Months or Most Recently Relevant to Health Maintenance Results * Pap Smear (05/04/2022 12:00 AM EST) Swab Cervical swab / Unknown us Historical Provider LAB CYTOLOGY ORDERABLES F inal Result EXTERNAL LAB from Last 3 Months or Most Recently Relevant to Health Maintenance Insurance [employer] Care Teams Poultry Processor Relationship Specialty Start Date End Date Kilo Levi MD [address] [place] [address] PCP - General Family Medicine 09/04/23
--- OUTSIDE RECORDS SUMMARY | 2024-08-14 07:38 | XMS_ITS | Encounter Summary ---
Author Organization [facility] Address [address] [place] [address] Care Team Providers Care Bond Writer Name Role Phone Kilo Levi MD Primary Care Provider [phone] Encounter Details Date Type Department Care Team (Late Contact Info) Description 10/15/2023 Abstract [facility] [address] [place] [phone] Jesus Ball, DO [address] [facility] [place] [address] Social History Tobacco Use Types Packs/Day Years [...] Office Visit [facility] [address] [place] [address] Kilo Levi MD [address] [place] [address] documented as of this encounter Visit Diagnoses Not on filedocumented in this encounter Care Teams Bond Writer Relationship Specialty Start Date End Date Kilo Levi MD [address] [place] [address] PCP - General Family Medicine 09/04/23 documented as of this encounter
--- OUTSIDE RECORDS SUMMARY | 2024-08-14 07:38 | XMS_ITS | Clinical Summary ---
Author Organization [facility] Address [address] [place] [address] Care Team Providers Care Corrosion Control Fitter Name Role Phone Kilo Levi MD Primary Care Provider + Allergies Active Allergy Reactions Criticality Noted Date Comments Desonide 12/08/2013 Medications No known medications Social History Tobacco Use Types Packs/Day Years Used Date Smoking Tobacco: Every Day Cigarettes Smokeless Tobacco: Never Comments No Sex and Gender Information Value Date Recorded Sex Assigned at Not on file Legal Sex Female 12:52 PM EST Gender Identity Not on file Sexual Orientation Not on file Last Filed Vital Signs Vital Sign Reading Time Taken Comments Blood Pressure 146/55 07/22/2020 2:59 PM EDT Pulse 113 07/22/2020 2:59 PM EDT Temperature 37.3 C (99.1 F) 07/22/2020 2:59 PM EDT Respiratory Rate 18 07/22/2020 2:59 PM EDT Oxygen Saturation 100% 07/22/2020 2:59 PM EDT Inhaled Oxygen Concentration - - Weight 81.6 kg (180 lb) 07/22/2020 2:59 PM EDT Height 177.8 cm (5' 10 ) 07/22/2020 2:59 PM EDT Body Mass Index 25.83 07/22/2020 2:59 PM EDT Plan of Treatment Not on file Insurance [place] DEPARTMENT OF LABOR OWCP Care Teams Corrosion Control Fitter Relationship Specialty Start Date End Date Kilo Levi MD [address] [place] [phone] PCP - General Family Medicine 07/22/20
--- OUTSIDE RECORDS SUMMARY | 2024-08-14 07:38 | XMS_ITS | Encounter Summary ---
Author Organization [facility] Address [address] [place] [address] Care Team Providers Care Release Engineer Name Role Phone Kilo Levi MD Primary Care Provider [phone] Encounter Details Date Type Department Care Team (Late Contact Info) Description 10/15/2023 Abstract [facility] [address] [place] [phone] Jesus Ball, DO [address] [facility] [place] [address] Social History Tobacco Use Types Packs/Day Years [...] Office Visit [facility] [address] [place] [phone] Kilo Levi MD [address] [place] [address] documented as of this encounter Visit Diagnoses Not on filedocumented in this encounter Care Teams Release Engineer Relationship Specialty Start Date End Date Kilo Levi MD [address] [place] [address] PCP - General Family Medicine 09/04/23 documented as of this encounter
--- OUTSIDE RECORDS SUMMARY | 2024-08-14 07:38 | XMS_ITS | Encounter Summary ---
Author Organization [facility] Address [address] [place] [address] Care Team Providers Care Cnc Service Engineer Name Role Phone Kilo Levi MD Primary Care Provider [phone] Encounter Details Date Type Department Care Team (Late st Contact Info) Description 08/13/2024 Bamboo flowsheet [facility] [address] [place] [address] Kilo Levi MD [address] [place] [phone] Social History Tobacco Use Types Packs/Day Years [...] week 12/14/2023 How often do you attend [facility] or scientology services? Patient declined 12/14/2023 Do you belong to any clubs o r organizations such as congregation groups, unions, fraternal or athletic groups, or [...] and heating? Not hard at all 12/14/2023 [facility] - Occupational Stress Questionnaire Answer Date Recorded [...] any time in the past 12 [facility], were you homeless or living in a long term (including now)? No 12/14/2023 Comments No Sex and Gender Information Value Date Recorded Sex Assigned at Not on file Legal Sex Female 11:47 PM EDT Gender Identity Not on file Sexual Orientation Not on file documented as of this encounter Plan of Treatment Upcoming Encounters Date Type Department Care Team (Late st Contact Info) Description 09/24/2024 7:45 AM EDT [facility] [address] [place] [address] Kilo Levi MD [address] [place] [phone] documented as of this encounter Visit Diagnoses Not on filedocumented in this encounter Care Teams Cnc Service Engineer Relationship Specialty Start Date End Date Klio Levi MD [address] [place] [phone] PCP - General Family Medicine 09/04/23 documented as of this encounter
--- OUTSIDE RECORDS SUMMARY | 2024-08-14 07:38 | XMS_ITS | Encounter Summary ---
Author Organization [facility] Address [address] [place] [address] Care Team Providers Care Front Desk Coordinator Name Role Phone Kilo Levi MD Primary Care Provider [phone] Kilo Levi MD Primary Care Provider [phone] Encounter Details Date Type Department Care Team (Late Contact Info) Description 07/28/2022 Abstract [facility] [address] [place] [phone] Jesus Ball, DO [address] [facility] [address] [place] [place], [place] [id number] Social History Tobacco Use Types Packs/Day Years [...] Office Visit [facility] [address] [place] [phone] Kilo Levi MD [address] [place] [phone] documented as of this encounter Visit Diagnoses Not on filedocumented in this encounter Care Teams Front Desk Coordinator Relationship Specialty Start Date End Date Kilo Levi MD PCP - General Cardiology 08/03/22 09/03/23 Kilo Levi MD [address] [place] [address] PCP - General Family Medicine 09/04/23 documented as of this encounter
[2024-08-14 08:04] LABS: Basophils Absolute Auto 0.2 10^3/uL (0.0-0.1); Basophils Percent Auto 1.9 % (0.2-2.0); Eosinophils Absolute Auto 0.2 10^3/uL (0.0-0.7); Eosinophils Percent Auto 2.2 % (0.9-7.0); Hematocrit 42.4 % (36.0-48.0); Hemoglobin 14.7 g/dL (12.0-16.0); Immature Granulocytes Abs Auto 0.03 10^3/uL (0.00-0.03); Immature Granulocytes Pct Auto 0.3 % (0.0-0.5); Lymphocytes Absolute Auto 2.3 10^3/uL (1.2-3.8); Lymphocytes Percent Auto 22.9 % (20.5-60.0); Mean Corpuscular HGB Conc 34.7 g/dL (29.9-35.2); Mean Corpuscular Hemoglobin 29.8 pg (26.7-34.0); Mean Corpuscular Volume 85.8 fL (81.0-99.0); Mean Platelet Volume 10.1 fL (9.5-13.5); Monocytes Absolute Auto 0.5 10^3/uL (0.3-0.8); Monocytes Percent Auto 5.2 % (1.7-12.0); Neutrophils Absolute Auto 6.9 10^3/uL (1.4-6.5); Neutrophils Percent Auto 67.5 % (43.0-75.0); Platelet Count 358 10^3/uL (150-450); Red Blood Count 4.94 10^6/uL (4.20-5.40); Red Cell Distribution Width 11.9 % (11.0-15.0); White Blood Count 10.2 10^3/uL (4.0-11.0)
[2024-08-14 08:59] LABS: Estimated Average Glucose 111 mg/dL; Glycohemoglobin A1C 5.5 % (4.5-6.2)
[2024-08-14 09:01] LABS: Free T4 1.02 ng/dL (0.76-1.46)
[2024-08-14 09:02] LABS: Anion Gap 12.4; BUN Creatinine Ratio 20.3; Calcium 8.6 mg/dL (8.5-10.1); Carbon Dioxide 26.2 mmol/L (21.0-32.0); Chloride 108 mmol/L (98-107); Estimated GFR (African America >60 (>=60 mL/min/1.73m^2); Estimated GFR (Non-African Ame >60 (>=60 mL/min/1.73m^2); Glucose 96 mg/dL (74-106); Potassium 4.6 mmol/L (3.5-5.1); Sodium 142 mmol/L (136-145)
[2024-08-15 04:07] LABS: Insulin 18.3 uIU/mL (2.6-24.9)
== END 2024-08-14 07:34 | disposition home or self-care (01) ==
PROVIDERS: PCP Family Medicine; Visit Provider Family Medicine
DX: R35.89 Other polyuria (principal); E66.811 Obesity, class 1; E66.09 Other obesity due to excess calories; Z68.30 Body mass index [BMI] 30.0-30.9, adult; E28.2 Polycystic ovarian syndrome; R53.83 Other fatigue
CPT/HCPCS: 36415; 80048; 83036; 83525; 84439; 84443; 85025